=== PATIENT | female | born 1990 | race Caucasian/White ===

== ENCOUNTER 2016-08-16 20:41 | Emergency (ER) | payer SELFPAY ==
[2016-08-16 20:48] VITALS: TEMP 97.8
[2016-08-16] MEDS ORDERED: ONDANSETRON ODT 4 MG TAB PO STA (21:14)
--- NOTE | 2016-08-16 21:16 | ED ---
General Adult HPI - General Chief complaint: Nausea/Vomiting/Diarrhea Stated complaint: nausea,vomiting Time Seen by Provider: 08/16/16 21:00 Source: patient, RN notes reviewed Mode of arrival: ambulatory Limitations: no limitations - History of Present Illness Initial comments: Is a 26-year-old female presents emergency department stating that for the last week and a half she has vomited almost every single day times one. Patient states there have been some days that she hasn't vomited. Patient denies any abdominal pain. Patient denies any diarrhea. Patient states that she can't constipated. Patient states that she's been taking iron for she thinks she might be low on hemoglobin because she had a large. A month ago. Patient states she also might be but she can't take a urine test because her doctor told her doesn't work on her. Patient denies any fever or chills. Patient denies chest pain difficulty breathing or shortness of breath. Patient denies any recent injury or trauma. Patient denies any back pain. - Related Data Home Medications Medication Instructions Recorded Confirmed Spironolactone [Aldactone] 50 mg PO DAILY 11/21/14 08/16/16 buPROPion HCL [Wellbutrin SR] 150 mg PO BID 03/01/16 08/16/16 Ergocalciferol [Vitamin D2 50,000 unit PO FR 06/12/16 08/16/16 (DRISDOL)] Norgestimate-Ethinyl Estradiol 1 tab PO DAILY 08/16/16 08/16/16 [Tri-Estarylla Tablet] Previous Rx's Medication Instructions Recorded Omeprazole [PriLOSEC] 40 mg PO -BRKFST #30 cap 08/18/15 Allergies Allergy/AdvReac Type Severity Reaction Status Date / Time No Known Allergies Allergy Verified 08/16/16 20:48 Review of Systems ROS Statement: Those systems with pertinent positive or pertinent negative responses have been documented in the HPI. ROS Other: All systems not noted in ROS Statement are negative. Past Medical History Past Medical History: GERD/Reflux Additional Past Medical History / Comment(s): back pain, pcos, insulin resistance, hirutism (excess hair growth), STATES ON SPIRONOLACTONE R/T HIRUTISM NOT HTN History of Any Multi-Drug Resistant Organisms: None Reported Past Surgical History: Ear Surgery Additional Past Surgical History / Comment(s): tubes when young in ears Past Anesthesia/Blood Transfusion Reactions: No Reported Reaction Past Psychological History: Depression Additional Psychological History / Comment(s): STATES HAS NOT BEEN ON MEDICATION Smoking Status: Current every day smoker Past Alcohol Use History: None Reported Additional Past Alcohol Use History / Comment(s): DOWN TO 5 CIGARETTES A DAY FROM 1PPD Past Drug Use History: Marijuana Additional Drug Use History / Comment(s): STATES MAY USE ONCE A WEEK, INSTRUCTED NOT TO USE 24 HRS PRIOR TO PROCEDURE - Past Family History Mother Family Medical History: Cancer, Pulmonary Embolus Additional Family Medical History / Comment(s): mom passed in 2003 passed from pulmonary embolism, moms mother had cancer pt doesn't know what kind Father Family Medical History: Diabetes Mellitus Additional Family Medical History / Comment(s): 2007 from diabetes and anemia got gangrene in foot, OSTEOMYLITIS General Exam - General Exam Comments Initial Comments: GENERAL: Patient is well-developed and well-nourished. Patient is nontoxic and well- hydrated and is in no acute distress. ENT: Neck is soft and supple. No significant lymphadenopathy is noted. Oropharynx is clear. Moist mucous membranes. Neck has full range of motion without eliciting any pain. EYES: The sclera were anicteric and conjunctiva were pink and moist. Extraocular movements were intact and pupils were equal round and reactive to light. Eyelids were unremarkable. PULMONARY: Unlabored respirations. Good breath sounds bilaterally. No audible rales rhonchi or wheezing was noted. CARDIOVASCULAR: There is a regular rate and rhythm without any murmurs gallops or rubs. ABDOMEN: Soft and nontender with normal bowel sounds. No palpable organomegaly was noted. There is no palpable pulsatile mass. SKIN: Skin is clear with no lesions or rashes and otherwise unremarkable. NEUROLOGIC: Patient is alert and oriented x3. Cranial nerves II through XII are grossly intact. Motor and sensory are also intact. Normal speech, volume and content. Symmetrical smile. MUSCULOSKELETAL: Normal extremities with adequate strength and full range of motion. No lower extremity swelling or edema. No calf tenderness. LYMPHATICS: No significant lymphadenopathy is noted PSYCHIATRIC: Normal psychiatric evaluation. Normal interpersonal interactions appears functionally intact in deals appropriately with others. No signs of depression. No signs of anxiety. Limitations: no limitations Course Vital Signs 08/16/16 20:46 Temperature 97.8 F Pulse Rate 85 Respiratory 20 Rate Blood Pressure 142/77 O2 Sat by Pulse 98 Oximetry Medical Decision Making - Medical Decision Making X-ray shows no acute abnormality. - Lab Data Result diagrams: 08/16/16 21:15 08/16/16 21:15 Lab Results 08/16/16 08/16/16 08/16/16 Range/Units 21:15 21:15 21:15 WBC 10.2 (3.8-10.6) k/uL RBC 3.99 (3.80-5.40) m/uL Hgb 10.8 L (11.4-16.0) gm/dL Hct 34.4 (34.0-46.0) % MCV 86.1 D (80.0-100.0) fL MCH 26.9 (25.0-35.0) pg MCHC 31.3 (31.0-37.0) g/dL RDW 15.1 (11.5-15.5) % Plt Count 424 (150-450) k/uL Neutrophils % 66 % Lymphocytes % 26 % Monocytes % 4 % Eosinophils % 3 % Basophils % 1 % Neutrophils # 6.7 (1.3-7.7) k/uL Lymphocytes # 2.7 (1.0-4.8) k/uL Monocytes # 0.4 (0-1.0) k/uL Eosinophils # 0.3 (0-0.7) k/uL Basophils # 0.1 (0-0.2) k/uL Hypochromasia Moderate Sodium 141 (137-145) mmol/L Potassium 4.1 (3.5-5.1) mmol/L Chloride 105 (98-107) mmol/L Carbon Dioxide 24 (22-30) mmol/L Anion Gap 12 mmol/L BUN 14 (7-17) mg/dL Creatinine 1.00 (0.52-1.04) mg/dL Est GFR (MDRD) Af Amer >60 (>60 ml/min/1.73 sqM) Est GFR (MDRD) Non-Af >60 (>60 ml/min/1.73 sqM) Glucose 104 H (74-99) mg/dL Calcium 9.4 (8.4-10.2) mg/dL Total Bilirubin 0.4 (0.2-1.3) mg/dL AST 25 (14-36) U/L ALT 48 (9-52) U/L Alkaline Phosphatase 88 (38-126) U/L Total Protein 7.3 (6.3-8.2) g/dL Albumin 4.0 (3.5-5.0) g/dL HCG, Qual Not Detected Urine Color Yellow Urine Appearance Cloudy H (Clear) Urine pH 5.0 (5.0-8.0) Ur Specific [place] 1.024 (1.001-1.035) Urine Protein Trace H (Negative) Urine Glucose (UA) Negative (Negative) Urine Ketones Negative (Negative) Urine Blood Negative (Negative) Urine Nitrate Negative (Negative) Urine Bilirubin Negative (Negative) Urine Urobilinogen <2.0 (<2.0) mg/dL Ur Leukocyte Esterase Small H (Negative) Urine RBC 4 (0-5) /hpf Urine WBC 7 H (0-5) /hpf Ur Squamous Epith Cells 18 H (0-4) /hpf Urine Bacteria Few H (None) /hpf Urine Mucus Many H (None) /hpf Disposition Clinical Impression: Nausea & vomiting Disposition: HOME SELF-CARE Instructions: Acute Nausea and Vomiting (ED) Referrals: Jose Kaba DO [Primary Care Provider] - 1-2 days Time of Disposition: 21:55
[2016-08-16 21:30] LABS: Basophils # (A) 0.1 k/uL (0-0.2); Basophils % (A) 1 %; CH 27.1; CHCM 31.5; Eosinophils # (A) 0.3 k/uL (0-0.7); Eosinophils % (A) 3 %; HCT 34.4 % (34.0-46.0); HGB 10.8 gm/dL (11.4-16.0); Hypochromasia Moderate; Luc # (Auto) 0.12; Luc % (Auto) 1; Lymphocytes # (A) 2.7 k/uL (1.0-4.8); Lymphocytes % (A) 26 %; MCH 26.9 pg (25.0-35.0); MCHC 31.3 g/dL (31.0-37.0); Mean Platelet Volume 7.5; Monocytes # (A) 0.4 k/uL (0-1.0); Monocytes % (A) 4 %; Neutrophils # (A) 6.7 k/uL (1.3-7.7); Neutrophils % (A) 66 %; RBC 3.99 m/uL (3.80-5.40); RDW 15.1 % (11.5-15.5); WBC 10.2 k/uL (3.8-10.6); WBC (Perox) 10.78
[2016-08-16 21:33] LABS: MCV 86.1 fL (80.0-100.0)
[2016-08-16 21:34] LABS: Appearance,Urine Cloudy (Clear); Bacteria,Urine Few /hpf; Bilirubin,Urine Negative (Negative); Glucose,Urine (UA) Negative (Negative); Ketones,Urine Negative (Negative); Leukocyte Esterase,Urine Small (Negative); Mucus,Urine Many /hpf; Nitrite,Urine Negative (Negative); Particle Count 15013; Protein,Urine Trace (Negative); RBC,Urine 4 /hpf (0-5); Specific Gravity,Urine 1.024 (1.001-1.035); Squamous Epithelial Cell,Urine 18 /hpf (0-4); UA Billing (MACRO vs. MICRO) MICRO; Urobilinogen,Urine <2.0 mg/dL (<2.0); WBC,Urine 7 /hpf (0-5)
[2016-08-16 21:39] LABS: HCG,Qualitative Serum Not Detected
[2016-08-16 21:40] LABS: ALT 48 U/L (9-52); AST 25 U/L (14-36); Alkaline Phosphatase 88 U/L (38-126); Anion Gap 12 mmol/L; Blood Urea Nitrogen 14 mg/dL (7-17); Calcium 9.4 mg/dL (8.4-10.2); Carbon Dioxide 24 mmol/L (22-30); Chloride 105 mmol/L (98-107); Glucose 104 mg/dL (74-99); Non-African American GFR(MDRD) >60 (>60 ml/min/1.73 sqM); Potassium 4.1 mmol/L (3.5-5.1); Sodium 141 mmol/L (137-145); Total Bilirubin 0.4 mg/dL (0.2-1.3); Total Protein 7.3 g/dL (6.3-8.2)
--- NOTE | 2016-08-16 21:54 | XR ---
EXAMINATION TYPE: XR KUB DATE OF EXAM: 08/16/2016 9:47 PM COMPARISON: NONE HISTORY: Nausea and vomiting TECHNIQUE: 3 views FINDINGS: I see no evidence of intestinal obstruction or pneumoperitoneum. Fecal pattern is normal. B owel gas pattern is normal. The lung bases are clear. There are no pathologic calcifications over the kidneys. IMPRESSION: Nonacute abdomen.
[2016-08-16] MEDS ORDERED: ONDANSETRON 4 MG ODT STARTER PACK 2 TAB BTL PO STA (21:55)
[2016-08-16 22:16] VITALS: BP 134/66; PULSE 90; RESP 18
== END 2016-08-16 22:15 | disposition home or self-care (01) ==
LOC: EC 20:41
DX: R11.2 Nausea with vomiting, unspecified (principal); F32.9 Major depressive disorder, single episode, unspecified; F17.210 Nicotine dependence, cigarettes, uncomplicated; Z79.3 Long term (current) use of hormonal contraceptives; Z79.899 Other long term (current) drug therapy
CPT/HCPCS: 36415; 80053; 85025; 81001; 84703; 74000; 99284; S0119

== ENCOUNTER → 2017-02-14 | Outpatient (CLI) | payer OTHER ==
[2017-02-14 16:12] VITALS: BP 140/81; PULSE 86; TEMP 98.4; BMI 56.7
--- NOTE | 2017-03-19 19:06 | P.PN ---
Progress Note - Text DATE OF SERVICE: 02/14/2017. CHIEF COMPLAINT: Bariatric assessment. HISTORY OF PRESENT ILLNESS: Susan. Fabian is a 26-year-old female who has been going almost 2 years for medically supervised weight loss. At her height of 5 feet 8-1/4 inches, she was 363 pounds in May of last year. Today she comes in weighing 376 pounds. She has gained 13 pounds in 9 months. [place] body weight is 163 pounds. She is 213 pounds overweight. As result of her morbid obesity, she developed hypertension uncontrolled. She is having trouble sleeping. She has been going to a gym membership. She has developed comorbidities, including non-insulin dependent diabetes, obstructive sleep apnea as well as hypertension. Body mass index is now 56.9. PAST MEDICAL HISTORY: 1. Morbid obesity. 2. Hypertension. 3. History of gastric ulcers. 4. Diabetes type 2. 5. Osteoarthritis of the lower back. 6. Obstructive sleep apnea, moderate to severe. PAST SURGICAL HISTORY: 1. Upper endoscopy. 2. Myringotomy, tubes in the ear. MEDICATIONS: 1. Metformin. 2. Wellbutrin. 3. Spironolactone. 4. Prilosec. 5. Naproxen. 6. Bactrim. 7. ( ). 8. Ibuprofen. 9. Vitamin D. ALLERGIES: Denies. SOCIAL HISTORY: Current daily tobacco user. History of recreational marijuana use. FAMILY HISTORY: Notable for obesity. She also has a family history of diabetes. She denies any familial history of ulcerative colitis or Crohn's disease. She denies any stomach cancers in her family. She does have history of her mother dying of pulmonary embolism. REVIEW OF SYSTEMS: CONSTITUTIONAL: [place] body weight of 163 pounds. She is 213 pounds overweight. Body mass index now 56.9. RESPIRATORY: Has obstructive sleep apnea. Currently pending CPAP machine. GASTROINTESTINAL: History of gastroesophageal reflux disease. She was negative for H. pylori gastritis. No reports of blood in the stools or diarrhea, constipation. She also reports intolerance to fatty foods; however, she has not had recently evaluate for cholecystitis. HEENT: No troubles with vision or hearing. Denies dysphagia. ENDOCRINE: Has glucose intolerance. No thyroid disorder. CARDIOVASCULAR: History of hypertension. No recent heart attack or palpitations. MUSCULOSKELETAL: Has lower back pain. Also reports bilateral hip pain. She reports pain along her ankle secondary to morbid obesity. NEURO: No reports of a headache or seizure disorders. PSYCH: No reports of depression or suicidal ideation. HEMATOLOGIC: No bruising or bleeding. PHYSICAL EXAM: VITAL SIGNS: 5 foot 8-1/4, 376 pounds. Body mass index of 56.9. Vital Signs 02/14/17 16:08 Temperature 98.4 F Pulse Rate 86 Blood Pressure 140/81 GENERAL: Well-developed female in no acute distress. HEENT: No sclerae icterus. Extraocular movements grossly intact. Moist buccal pink mucosa. NECK: Supple without lymphadenopathy. CHEST: Nonlabored respirations, equal bilateral excursions. CARDIOVASCULAR: Regular rate and regular rhythm. ABDOMEN: Obese, soft, nontender. Nondistended. MUSCULOSKELETAL: No clubbing, or cyanosis. NEURO: No focal or lateralizing signs. Cranial nerves II through XII grossly within normal limits. PSYCH: Appropriate affect. Alert and oriented to person, place and time. SKIN: Well perfused. Good skin turgor. ASSESSMENT: 1. Morbid obesity due to excess caloric intake. 2. Body mass index of 56.9. 3. Obstructive sleep apnea. 4. Osteoarthritis of lower back, due to morbid obesity. 5. Tobacco cessation and counseling 6. Vitamin D deficiency. 7. Hypercholesterolemia. 8. Hypertriglyceridemia. 9. Hypertensive heart disease without known cardiomyopathy. 10. Glucose intolerance. 11. Fatty food intolerance 12. Gastroesophageal reflux disease. 13. History of gastric ulcers. 14. Dietary surveillance and counseling. PLAN: 1. Recommend dietary surveillance and counseling. 2. May need diuretic for hypertension. 3. Recommend follow-up with bariatric dietitian. 4. Continue with membership at the gym.
== END | disposition home or self-care (01) ==
LOC: BARWHC3 14:37
PROVIDERS: ATTEND Surgery Plastic and Reconstructive Surgery
DX: Z48.815 Encounter for surgical aftercare following surgery on the digestive system (principal); G47.33 Obstructive sleep apnea (adult) (pediatric); M47.816 Spondylosis without myelopathy or radiculopathy, lumbar region; E55.9 Vitamin D deficiency, unspecified; E78.00 Pure hypercholesterolemia, unspecified; E78.1 Pure hyperglyceridemia; I11.9 Hypertensive heart disease without heart failure; E74.39 Other disorders of intestinal carbohydrate absorption; K90.49 Malabsorption due to intolerance, not elsewhere classified; E11.9 Type 2 diabetes mellitus without complications; K21.9 Gastro-esophageal reflux disease without esophagitis; E66.01 Morbid (severe) obesity due to excess calories; Z68.43 Body mass index [BMI] 50.0-59.9, adult; Z87.11 Personal history of peptic ulcer disease; Z71.6 Tobacco abuse counseling; Z71.3 Dietary counseling and surveillance; Z79.1 Long term (current) use of non-steroidal anti-inflammatories (NSAID); Z98.84 Bariatric surgery status; Z79.899 Other long term (current) drug therapy
CPT/HCPCS: 99211

== ENCOUNTER → 2017-08-29 | Outpatient (CLI) | payer OTHER ==
[2017-08-29 14:30] VITALS: BP 103/72; PULSE 83; RESP 16; TEMP 98.2; BMI 57.2
--- NOTE | 2017-11-05 16:53 | P.PN ---
Subjective Progress Note Date: 08/29/17 DATE OF SERVICE: 08/29/2017 CHIEF COMPLAINT: Bariatric assessment. HISTORY OF PRESENT ILLNESS: Susan. Fbaian is a 27-year-old female who has been undergoing medical supervised weight loss over a year. In the past year she stopped smoking. Her highest weight has been 380 pounds. At her height of 5 feet 8-1/4 inches, she was 380 pounds. Her body mass index was 57.5. [place] body weight is 163 pounds. She is 216 pounds overweight. As result of her morbid obesity, she developed non-insulin dependent diabetes, obstructive sleep apnea as well as hypertension. She reports troubles with constipation. She sees a psychologist. Per her understanding, she is eager to lose 10% of her present weight otherwise 38 pounds to get down to 342 pounds. She reports developing lower back pain including right greater than left hip pain. She also reports bilateral ankle pain. She is looking into the gastric bypass. PAST MEDICAL HISTORY: 1. Morbid obesity. 2. Hypertension. 3. History of gastric ulcers. 4. Diabetes type 2. 5. Osteoarthritis of the lower back. 6. Obstructive sleep apnea, moderate to severe. PAST SURGICAL HISTORY: 1. Upper endoscopy. 2. Myringotomy, tubes in the ear. MEDICATIONS: 1. Wellbutrin. 2. Spironolactone. 3. Prilosec. 4. Vitamin D. 5. Iron 6. Zantac ALLERGIES: Denies. SOCIAL HISTORY: Past daily tobacco user. History of recreational marijuana use. FAMILY HISTORY: Notable for obesity. She also has a family history of diabetes. She denies any familial history of ulcerative colitis or Crohn's disease. She denies any stomach cancers in her family. She does have history of her mother dying of pulmonary embolism. REVIEW OF SYSTEMS: CONSTITUTIONAL: At her height of 5 feet 8-1/4 inches, she was 380 pounds. Her body mass index was 57.5. [place] body weight is 163 pounds. She is 216 pounds overweight. RESPIRATORY: Has obstructive sleep apnea. No recent pneumonias. GASTROINTESTINAL: History of gastroesophageal reflux disease. She also reports intolerance to fatty foods. Reports change in bowel habits including constipation. HEENT: No troubles with vision or hearing. Denies dysphagia. ENDOCRINE: Has glucose intolerance. No thyroid disorder. CARDIOVASCULAR: History of hypertension. No recent heart attack or palpitations. MUSCULOSKELETAL: Has lower back pain. Also reports bilateral hip pain. She reports pain along her ankle secondary to morbid obesity. NEURO: No reports of a headache or seizure disorders. PSYCH: No reports of depression or suicidal ideation. HEMATOLOGIC: No bruising or bleeding. SKIN: Has panniculitis. No cancer. PHYSICAL EXAM: VITAL SIGNS: 5 foot 8-1/4, 380 pounds. Body mass index of 57.5 Vital Signs Temp 98.2 F 08/29/17 18:00 Pulse 83 08/29/17 18:00 Resp 16 08/29/17 18:00 BP 103/72 08/29/17 18:00 Pulse Ox GENERAL: Well-developed female in no acute distress. HEENT: No sclerae icterus. Extraocular movements grossly intact. Moist buccal pink mucosa. NECK: Supple without lymphadenopathy. CHEST: Nonlabored respirations, equal bilateral excursions. CARDIOVASCULAR: Regular rate and regular rhythm. ABDOMEN: Obese, soft, nontender. Nondistended. MUSCULOSKELETAL: No clubbing, or cyanosis. NEURO: No focal or lateralizing signs. Cranial nerves II through XII grossly within normal limits. PSYCH: Appropriate affect. Alert and oriented to person, place and time. SKIN: Well perfused. Good skin turgor. ASSESSMENT: 1. Morbid obesity due to excess caloric intake. 2. Body mass index of 57.5. 3. Obstructive sleep apnea. 4. Osteoarthritis of lower back, due to morbid obesity. 5. Gastroesophageal reflux disease. 6. Vitamin D deficiency. 7. Hypercholesterolemia. 8. Hypertriglyceridemia. 9. Hypertensive heart disease 10. Glucose intolerance. 11. Fatty food intolerance 12. Dietary surveillance and counseling. PLAN: 1. Recommend bariatric metabolic panel. 2. Goal weight loss of 38 pounds described otherwise goal weight of 342 pounds. 3. She has history of fatty food intolerance however at present no cholecystitis. 4. Recommend dietary surveillance and counseling and maintenance with dietitian. Goal protein intake over 75 g daily advised.
== END | disposition home or self-care (01) ==
LOC: BARWHC3 13:20
PROVIDERS: ATTEND Surgery Plastic and Reconstructive Surgery
DX: Z48.815 Encounter for surgical aftercare following surgery on the digestive system (principal); E66.01 Morbid (severe) obesity due to excess calories; M19.90 Unspecified osteoarthritis, unspecified site; G47.33 Obstructive sleep apnea (adult) (pediatric); K21.9 Gastro-esophageal reflux disease without esophagitis; E55.9 Vitamin D deficiency, unspecified; E78.00 Pure hypercholesterolemia, unspecified; E78.1 Pure hyperglyceridemia; I11.9 Hypertensive heart disease without heart failure; I50.9 Heart failure, unspecified; E74.39 Other disorders of intestinal carbohydrate absorption; K90.49 Malabsorption due to intolerance, not elsewhere classified; Z71.3 Dietary counseling and surveillance; Z79.899 Other long term (current) drug therapy; Z68.43 Body mass index [BMI] 50.0-59.9, adult
CPT/HCPCS: 99211

== ENCOUNTER → 2017-11-28 | Outpatient (CLI) | payer OTHER ==
[2017-11-28 14:53] VITALS: BP 126/85; PULSE 103; RESP 16; TEMP 98.2; BMI 56.2
[2017-11-28 14:53] LABS: Partial Thromboplastin Time 24.6 sec (22.0-30.0); Prothrombin Time 9.5 sec (9.0-12.0)
[2017-11-28 14:55] LABS: HCT 36.4 % (34.0-46.0); HGB 11.9 gm/dL (11.4-16.0); Hypochromasia Slight; MCH 29.7 pg (25.0-35.0); MCHC 32.6 g/dL (31.0-37.0); MCV 91.1 fL (80.0-100.0); Mean Platelet Volume 6.7; Platelet Count 390 k/uL (150-450); RDW 12.9 % (11.5-15.5); WBC 7.4 k/uL (3.8-10.6)
[2017-11-28 15:24] LABS: ALT 36 U/L (9-52); AST 23 U/L (14-36); Alkaline Phosphatase 84 U/L (38-126); Anion Gap 13 mmol/L; Blood Urea Nitrogen 16 mg/dL (7-17); Calcium 9.7 mg/dL (8.4-10.2); Carbon Dioxide 26 mmol/L (22-30); Chloride 105 mmol/L (98-107); Cholesterol 232 mg/dL (<200); Glucose 100 mg/dL (74-99); HDL Cholesterol 37 mg/dL (40-60); LDL Cholesterol,Calculated 154 mg/dL (0-99); Magnesium 1.8 mg/dL (1.6-2.3); Phosphorus 3.1 mg/dL (2.5-4.5); Potassium 4.5 mmol/L (3.5-5.1); Sodium 144 mmol/L (137-145); Total Bilirubin 0.3 mg/dL (0.2-1.3); Total Protein 6.8 g/dL (6.3-8.2); Triglycerides 204 mg/dL (<150)
--- NOTE | 2017-11-28 17:09 | P.PN ---
Progress Note - Text Progress Note Date: 11/28/17 Patient had to leave.
[2017-11-28 19:12] LABS: Iron Saturation 8.31 (12.00-45.00)
[2017-11-28 20:20] LABS: Parathyroid Hormone Intact 48.3 pg/mL (14.0-72.0)
[2017-11-29 00:44] LABS: Hemoglobin A1C 5.2 % (4.0-6.0)
[2017-11-29 12:49] LABS: Vitamin A 33 ug/dL (38-106)
[2017-11-29 14:19] LABS: Zinc, Serum 95 ug/dL (60-130)
[2017-11-29 22:40] LABS: Vitamin B1 59 ug/L (38-122)
[2017-11-30 16:54] LABS: Selenium 162 mcg/L (63-160)
== END | disposition home or self-care (01) ==
LOC: BARWHC3 13:53
PROVIDERS: ATTEND Surgery Plastic and Reconstructive Surgery
DX: E66.01 Morbid (severe) obesity due to excess calories (principal); E21.1 Secondary hyperparathyroidism, not elsewhere classified; K91.2 Postsurgical malabsorption, not elsewhere classified; E89.1 Postprocedural hypoinsulinemia; E55.9 Vitamin D deficiency, unspecified; K76.9 Liver disease, unspecified; N19 Unspecified kidney failure; K50.90 Crohn's disease, unspecified, without complications
CPT/HCPCS: 84255; 84134; 84425; 80061; 80053; 82607; 82728; 82525; 82746; 83540; 83550; 83735; 84100; 84443; 84590; 84630; 85027; 85610; 85730; 82306; 83970; 83036; 36415; G0463; 99201

== ENCOUNTER 2018-02-13 10:00 | Day surgery (SDC) | payer OTHER ==
[2018-02-08 13:13] VITALS: BMI 54.3
--- NOTE | 2018-02-13 09:18 | P.GSHP ---
History of Present Illness H&P Date: 02/13/18 CHIEF COMPLAINT: GERD HISTORY OF PRESENT ILLNESS: The patient is a 27-year-old female who presents reports gastroesophageal reflux disease. Upper endoscopy was offered for further evaluation and management. PAST MEDICAL HISTORY: Please see list. PAST SURGICAL HISTORY: Please see list. MEDICATIONS: Please see list. ALLERGIES: Please see list. SOCIAL HISTORY: No illicit drug use FAMILY HISTORY: No reports of Crohn disease or ulcerative colitis. REVIEW OF ORGAN SYSTEMS: CONSTITUTIONAL: No reports of fevers or chills. GI: Denies any blood in stools or constipation. PHYSICAL EXAM: VITAL SIGNS: Stable GENERAL: Well-developed and pleasant in no acute distress. HEENT: No scleral icterus. Extraocular movements grossly intact. Moist buccal mucosa. NECK: Supple without lymphadenopathy. CHEST: Unlabored respirations. Equal bilateral excursions. CARDIOVASCULAR: Regular rate and rhythm. Distal 2+ pulses. ABDOMEN: Soft, nondistended. MUSCULOSKELETAL: No clubbing, cyanosis, or edema. ASSESSMENT: 1. Gastroesophageal reflux disease PLAN: 1. Recommend proceeding with an upper endoscopy Past Medical History Past Medical History: GERD/Reflux, Sleep Apnea/CPAP/BIPAP Additional Past Medical History / Comment(s): BACK PAIN, PCOS, MENSTRUAL PERIODS LENGTHY AND HEAVY, LOW IRON.,HIRSUTISM-(TAKES SPIRONOLACTONE FOR THIS). , STOMACH ULCERS ., HAS BROKEN TOOTH., SLEEP APNEA (NO MACHINE) History of Any Multi-Drug Resistant Organisms: None Reported Past Surgical History: Ear Surgery Additional Past Surgical History / Comment(s): TUBES IN EARS (CHILD), EGD Past Anesthesia/Blood Transfusion Reactions: No Reported Reaction Past Psychological History: Anxiety, Depression Additional Psychological History / Comment(s): . Smoking Status: Former smoker Past Alcohol Use History: None Reported Additional Past Alcohol Use History / Comment(s): QUIT SMOKING January. SMOKED 1/2 PPD. STARTED SMOKING AGE 13. Past Drug Use History: None Reported - Past Family History Mother Family Medical History: Cancer, Pulmonary Embolus Additional Family Medical History / Comment(s): . Father Family Medical History: Diabetes Mellitus Additional Family Medical History / Comment(s): 2007 from diabetes and anemia got gangrene in foot, OSTEOMYLITIS Medications and Allergies Home Medications Medication Instructions Recorded Confirmed Type Ergocalciferol (Vitamin D2) 50,000 unit PO Q7D 08/31/17 02/08/18 History [Vitamin D2] Ferrous Sulfate [Feosol] 325 mg PO DAILY 08/31/17 02/08/18 History Spironolactone [Aldactone] 50 mg PO DAILY 08/31/17 02/08/18 History buPROPion HCL [Wellbutrin SR] 150 mg PO BID 08/31/17 02/08/18 History Cetirizine (Unknown Dose) 1 tab PO DAILY PRN 02/08/18 02/08/18 History Multivit with Calcium,Iron,Min 1 each PO DAILY 02/08/18 02/08/18 History [Women's Multivitamin] Naproxen Sodium [Aleve] 660 mg PO DAILY PRN 02/08/18 02/08/18 History [place] 3 1 dose PO DAILY 02/08/18 02/08/18 History Omeprazole [PriLOSEC] 40 mg PO DAILY 02/08/18 02/08/18 History Phentermine HCl [Adipex-P] 37.5 mg PO QAM 02/08/18 02/08/18 History Vitamin C/Biotin [Hair, Skin and 1 tab PO DAILY 02/08/18 02/08/18 History Nails] Allergies Allergy/AdvReac Type Severity Reaction Status Date / Time No Known Allergies Allergy Verified 02/08/18 12:50
[~2018-02-13 10:00] MED LIST: LACTATED RINGERS 1,000 ML IV SCH; LIDOCAINE 1% 20 ML VIAL (10MG/ML) FOR IV START INTRADERMA PRN
[2018-02-13 11:18] VITALS: TEMP 97.9
[2018-02-13] MEDS ORDERED: KETAMINE 10 MG/ML 20 ML VIAL ONE (11:46)
[2018-02-13] MEDS ORDERED: PROPOFOL 10 MG/ML 20 ML VIAL IV ONE (11:46)
[2018-02-13] MEDS ORDERED: GLYCOPYRROLATE 0.2 MG/ML 2 ML VIAL ONE (11:46)
[2018-02-13] MEDS ORDERED: LIDOCAINE 1% INJ 10MG/ML (20 ML MDV) ONE (11:46)
[2018-02-13] MEDS ORDERED: MIDAZOLAM 2 MG/2 ML VIAL ONE (11:46)
--- NOTE | 2018-02-13 12:04 | P.PCN ---
Date of Procedure: 02/13/18 Description of Procedure: PREOPERATIVE DIAGNOSIS: Gastroesophageal reflux disease. Morbid obesity. POSTOPERATIVE DIAGNOSIS: Morbid obesity. Gastritis. Erosive esophagitis. Gastroesophageal reflux disease. Diaphragmatic hiatal hernia without obstruction. OPERATION: Esophagogastroduodenoscopy with biopsies along antrum. SURGEON: Jahaira Yates MD ANESTHESIA: MAC. INDICATIONS: The patient is a 27-year-old female who presents with a history of reflux disease. Benefits and risks of the procedure were described. Informed consent was obtained. DESCRIPTION: The patient was brought into the endoscopy suite and laid in the left lateral decubitus position. An Olympus gastroscope was passed along the posterior oropharynx down to the distal esophagus where the squamocolumnar junction was encountered at 40 cm from the incisors. The stomach was entered and no bile reflux was found. Additional findings are listed below. Biopsies with cold forceps were obtained of the antrum. The first through third portion of the duodenum was examined and unremarkable. Retroflexion of the scope confirmed Hill grade 4 lower esophageal valve. The squamocolumnar junction demostrated LA grade A erosive esophagitis. The stomach was desufflated. The patient tolerated the procedure well. FINDINGS: Squamocolumnar junction 40 cm from the incisors. Diaphragmatic hiatus at 40 cm. Hill grade 4 lower esophageal valve. LA grade A erosive esophagitis. Mild chronic gastritis without bleeding. No active duodenitis. RECOMMENDATIONS: Upper endoscopy as needed. Plan - Discharge Summary New Discharge Prescriptions: No Action Ferrous Sulfate [Feosol] 325 mg PO DAILY Ergocalciferol (Vitamin D2) [Vitamin D2] 50,000 unit PO Q7D buPROPion HCL [Wellbutrin SR] 150 mg PO BID Spironolactone [Aldactone] 50 mg PO DAILY Omeprazole [PriLOSEC] 40 mg PO DAILY Naproxen Sodium [Aleve] 660 mg PO DAILY PRN PRN Reason: Pain Vitamin C/Biotin [Hair, Skin and Nails] 1 tab PO DAILY Phentermine HCl [Adipex-P] 37.5 mg PO QAM [place] 3 1 dose PO DAILY Multivit with Calcium,Iron,Min [Women's Multivitamin] 1 each PO DAILY Cetirizine (Unknown Dose) 1 tab PO DAILY PRN PRN Reason: Allergic Reaction Discharge Medication List Ergocalciferol (Vitamin D2) [Vitamin D2] 50,000 unit PO Q7D 08/31/17 [History] Ferrous Sulfate [Feosol] 325 mg PO DAILY 08/31/17 [History] Spironolactone [Aldactone] 50 mg PO DAILY 08/31/17 [History] buPROPion HCL [Wellbutrin SR] 150 mg PO BID 08/31/17 [History] Cetirizine (Unknown Dose) 1 tab PO DAILY PRN 02/08/18 [History] Multivit with Calcium,Iron,Min [Women's Multivitamin] 1 each PO DAILY 02/08/18 [ History] Naproxen Sodium [Aleve] 660 mg PO DAILY PRN 02/08/18 [History] [place] 3 1 dose PO DAILY 02/08/18 [History] Omeprazole [PriLOSEC] 40 mg PO DAILY 02/08/18 [History] Phentermine HCl [Adipex-P] 37.5 mg PO QAM 02/08/18 [History] Vitamin C/Biotin [Hair, Skin and Nails] 1 tab PO DAILY 02/08/18 [History]
[2018-02-13 12:23] VITALS: RESP 18
[2018-02-13 12:24] VITALS: BP 114/69; PULSE 76
== END 2018-02-13 12:47 | disposition home or self-care (01) ==
LOC: ORWHC2ENDO 10:00
PROVIDERS: ATTEND Surgery Plastic and Reconstructive Surgery
DX: K29.50 Unspecified chronic gastritis without bleeding (principal); K21.9 Gastro-esophageal reflux disease without esophagitis; G47.33 Obstructive sleep apnea (adult) (pediatric); K22.10 Ulcer of esophagus without bleeding; K44.9 Diaphragmatic hernia without obstruction or gangrene; E66.01 Morbid (severe) obesity due to excess calories; Z79.899 Other long term (current) drug therapy; Z87.891 Personal history of nicotine dependence; Z68.43 Body mass index [BMI] 50.0-59.9, adult
CPT/HCPCS: 81025; 88305; 43239; J2250; J2001; J2704

== ENCOUNTER → 2018-02-27 | Outpatient (CLI) | payer OTHER ==
[2018-02-27 15:40] VITALS: BP 129/96; PULSE 94; TEMP 98.2; BMI 53.2
--- NOTE | 2018-02-27 17:17 | P.PN ---
Subjective Progress Note Date: 02/27/18 DATE OF SERVICE: 02/27/2018 CHIEF COMPLAINT: Bariatric assessment. HISTORY OF PRESENT ILLNESS: Susan. Fabian is a 28-year-old female who presents with her highest weight of 380 pounds. At her height of 5 feet 8-1/4 inches, she was 380 pounds. Her body mass index was 57.5. [place] body weight is 163 pounds. Today she comes in weighing 352 pounds and BMI of 53.3. She has lost 28 pounds in 6 months, and 10 pouns in 2 months since her last visit in December 2017 when she weighed 362 pounds. She is 189 pounds overweight. She is doing well on Adipex and has achieved requested weight loss goal. She has stopped smoking. She is looking into the gastric bypass. PAST MEDICAL HISTORY: 1. Morbid obesity, highest BMI 57.5. 2. Hypertension. 3. History of gastric ulcers. 4. Diabetes type 2, diet controlled. 5. Osteoarthritis of the lower back. 6. Obstructive sleep apnea 7. Gastroesophageal reflux disease PAST SURGICAL HISTORY: 1. Upper endoscopy. 2. Myringotomy, tubes in the ear. MEDICATIONS: 1. Wellbutrin. 2. Spironolactone. 3. Prilosec. 4. Vitamin D. 5. Iron 6. Zantac 7. Adipex ALLERGIES: Denies. SOCIAL HISTORY: History of tobacco use. History of recreational marijuana use. FAMILY HISTORY: Notable for obesity. She also has a family history of diabetes. She denies any familial history of ulcerative colitis or Crohn's disease. She denies any stomach cancers in her family. She does have history of her mother dying of pulmonary embolism. REVIEW OF SYSTEMS: CONSTITUTIONAL: At her height of 5 feet 8-1/4 inches, she was 380 pounds. Her body mass index was 57.5. [place] body weight is 163 pounds. She has lost 28 pounds in 6 months and is 189 pounds overweight. Today she comes in weighing 352 pounds and BMI of 53.3. RESPIRATORY: Has obstructive sleep apnea. No recent pneumonias. GASTROINTESTINAL: History of gastroesophageal reflux disease. She also reports intolerance to fatty foods. Reports change in bowel habits including constipation. HEENT: No troubles with vision or hearing. Denies dysphagia. ENDOCRINE: Has glucose intolerance. No thyroid disorder. CARDIOVASCULAR: History of hypertension. No recent heart attack or palpitations. MUSCULOSKELETAL: Has lower back pain. Also reports bilateral hip pain. She reports pain along her ankle secondary to morbid obesity. NEURO: No reports of a headache or seizure disorders. PSYCH: No reports of depression or suicidal ideation. HEMATOLOGIC: No bruising or bleeding. SKIN: Has panniculitis. No cancer. PHYSICAL EXAM: VITAL SIGNS: 5 foot 8-1/4, 352 pounds. Body mass index of 53.3 Vital Signs 02/27/18 15:35 Temperature 98.2 F Pulse Rate 94 Blood Pressure 129/96 GENERAL: Well-developed female in no acute distress. HEENT: No sclerae icterus. Extraocular movements grossly intact. Moist buccal pink mucosa. NECK: Supple without lymphadenopathy. CHEST: Nonlabored respirations, equal bilateral excursions. CARDIOVASCULAR: Regular rate and regular rhythm. ABDOMEN: Obese, soft, nontender. Nondistended. MUSCULOSKELETAL: No clubbing, or cyanosis. NEURO: No focal or lateralizing signs. Cranial nerves II through XII grossly within normal limits. PSYCH: Appropriate affect. Alert and oriented to person, place and time. SKIN: Well perfused. Good skin turgor. LABS: Prealbumin low at 17, Iron low at 28, Cholesterol elevated at 232, HDL low at 37 , Vitamin A low at 33, Vitamin D low at 29, Selenium elevated at 162 ASSESSMENT: 1. Morbid obesity due to excess caloric intake. 2. Body mass index of 57.5. 3. Obstructive sleep apnea. 4. Osteoarthritis of lower back, due to morbid obesity. 5. Gastroesophageal reflux disease. 6. Vitamin D deficiency. 7. Hypercholesterolemia. 8. Hypertriglyceridemia. 9. Hypertensive heart disease 10. Glucose intolerance. 11. Fatty food intolerance 12. Dietary surveillance and counseling. 13. Vitamin A deficiency 14. Iron deficiency anemia. 15. Tobacco cessation and counseling. PLAN: 1. Will need urine nicotine test for her history of tobacco abuse. 2. Recommend iron infusion for symptomatic and severe iron deficiency anemia 3. Recommend continuing her medical supervised weight loss. 4. Bariatric options between a sleeve, band and a [place]-en-Y gastric bypass were reviewed in detail. She has elected for a gastric bypass. Robotic assisted approach described. 5. The [place] [facility] Data was also reviewed with benefits and risks as described. 6. An 8 page second-generation bariatric consent form was reviewed in detail including potential of bleeding, infection, leaks, adequate weight loss, nutritional deficiencies which he demonstrated understanding of the risks. 7. A 2 week high-protein low caloric 800 kcal diet described to address hepatomegaly. 8. Preoperative labs including complete metabolic panel and CBC with type and screen recommended. 9. DVT prophylaxis per [place] [facility]. 10. Antibiotic prophylaxis. 11. Inpatient hospitalization anticipated for more than 2 nights. 11. All questions and concerns were addressed with the patient. 12. Recommended dietary classes. Objective - Vital Signs Vital signs: Vital Signs Temp 98.2 F 02/27/18 15:35 Pulse 94 02/27/18 15:35 Resp BP 129/96 02/27/18 15:35 Pulse Ox Intake & Output 02/26/18 02/27/18 02/27/18 18:59 06:59 18:59 Weight 160.209 kg
== END | disposition home or self-care (01) ==
LOC: BARWHC3 14:42
PROVIDERS: ATTEND Surgery Plastic and Reconstructive Surgery
DX: E66.01 Morbid (severe) obesity due to excess calories (principal); K21.9 Gastro-esophageal reflux disease without esophagitis; G47.33 Obstructive sleep apnea (adult) (pediatric); M47.9 Spondylosis, unspecified; E55.9 Vitamin D deficiency, unspecified; E78.00 Pure hypercholesterolemia, unspecified; E78.1 Pure hyperglyceridemia; I11.9 Hypertensive heart disease without heart failure; E11.9 Type 2 diabetes mellitus without complications; K90.49 Malabsorption due to intolerance, not elsewhere classified; E50.9 Vitamin A deficiency, unspecified; D50.9 Iron deficiency anemia, unspecified; Z87.891 Personal history of nicotine dependence; Z71.6 Tobacco abuse counseling; Z87.19 Personal history of other diseases of the digestive system; Z68.43 Body mass index [BMI] 50.0-59.9, adult; Z71.3 Dietary counseling and surveillance; Z98.890 Other specified postprocedural states; Z79.899 Other long term (current) drug therapy; Z83.3 Family history of diabetes mellitus
CPT/HCPCS: 99211

== ENCOUNTER 2018-05-05 20:03 | Emergency (ER) | payer OTHER ==
[2018-05-05 20:17] VITALS: BP 155/93; PULSE 90; RESP 18; TEMP 98.6
[2018-05-05] MEDS ORDERED: KETOROLAC 30 MG/ML 1 ML VIAL IM STA (20:43)
[2018-05-05] MEDS ORDERED: ORPHENADRINE 30 MG/ML 2 ML VIAL IM STA (20:43)
--- NOTE | 2018-05-05 20:56 | ED ---
Back Pain HPI - General Chief Complaint: Back Pain/Injury Stated Complaint: back and leg pain Time Seen by Provider: 05/05/18 20:34 Source: patient, RN notes reviewed Mode of arrival: ambulatory Limitations: no limitations - History of Present Illness Initial Comments: This is a 28-year-old female who presents to the emergency department with chief complaint of low back pain. Patient states that for the last couple of days she has had right-sided back pain that radiates down her butt and the side of her right leg. She states that it stops at her knee. Patient states the pain is positional, increasing with rotating and bending forwards. She states she is having difficulty tying her shoes and wiping when going to the bathroom. She denies any falls, injuries or trauma. She denies saddle paresthesias or loss of bladder or bowel function. Denies numbness or tingling. Patient states that she did walk to the emergency department from home. Denies fevers or chills, chest pain or shortness of breath, abdominal pain, nausea or vomiting. - Related Data Home Medications Medication Instructions Recorded Confirmed Ergocalciferol (Vitamin D2) 50,000 unit PO Q7D 08/31/17 03/12/18 [Vitamin D2] Ferrous Sulfate [Feosol] 325 mg PO DAILY 08/31/17 03/12/18 Spironolactone [Aldactone] 50 mg PO DAILY 08/31/17 03/12/18 buPROPion HCL [Wellbutrin SR] 150 mg PO BID 08/31/17 03/12/18 Cetirizine (Unknown Dose) 1 tab PO DAILY PRN 02/08/18 03/12/18 Multivit with Calcium,Iron,Min 1 each PO DAILY 02/08/18 03/12/18 [Women's Multivitamin] Naproxen Sodium [Aleve] 660 mg PO DAILY PRN 02/08/18 03/12/18 M[place]ie 3 1 dose PO DAILY 02/08/18 03/12/18 Omeprazole [PriLOSEC] 40 mg PO DAILY 02/08/18 03/12/18 Phentermine HCl [Adipex-P] 37.5 mg PO QAM 02/08/18 03/12/18 Vitamin C/Biotin [Hair, Skin and 1 tab PO DAILY 02/08/18 03/12/18 Nails] Previous Rx's Medication Instructions Recorded Cyclobenzaprine [Flexeril] 10 mg PO TID #12 tab 05/05/18 Ibuprofen 600 mg PO Q6HR #20 tablet 05/05/18 Allergies Allergy/AdvReac Type Severity Reaction Status Date / Time No Known Allergies Allergy Verified 05/05/18 20:17 Review of Systems ROS Statement: Those systems with pertinent positive or pertinent negative responses have been documented in the HPI. ROS Other: All systems not noted in ROS Statement are negative. Past Medical History Past Medical History: Blood Disorder, GERD/Reflux, Sleep Apnea/CPAP/BIPAP Additional Past Medical History / Comment(s): BACK PAIN, PCOS, MENSTRUAL PERIODS LENGTHY AND HEAVY, LOW IRON.,HIRSUTISM-(TAKES SPIRONOLACTONE FOR THIS). , STOMACH ULCERS ., HAS BROKEN TOOTH., SLEEP APNEA (NO MACHINE). Anemia-iron infusions. History of Any Multi-Drug Resistant Organisms: None Reported Past Surgical History: Ear Surgery Additional Past Surgical History / Comment(s): TUBES IN EARS (CHILD), EGD Past Anesthesia/Blood Transfusion Reactions: No Reported Reaction Past Psychological History: Anxiety, Depression Smoking Status: Former smoker Past Alcohol Use History: None Reported Past Drug Use History: None Reported - Past Family History Mother Family Medical History: Cancer, Pulmonary Embolus Additional Family Medical History / Comment(s): . Father Family Medical History: Diabetes Mellitus Additional Family Medical History / Comment(s): 2007 from diabetes and anemia got gangrene in foot, OSTEOMYLITIS General Exam - General Exam Comments Initial Comments: General: Awake and alert, well-developed; in no apparent distress. Morbidly obese female sitting comfortably on ED stretcher. HEENT: Head atraumatic, normocephalic. Pupils are equal, round and reactive to light. Extraocular movements intact. Oropharynx moist without erythema or exudate. Neck: Supple. Normal ROM. Cardiovascular: Regular rate and rhythm. No murmurs, rubs or gallops. Chest symmetrical. Respiratory: Lungs clear to auscultation bilaterally. No wheezes, rales or rhonchi. Normal respiratory effort with no use of accessory muscles. Musculoskeletal: Normal ROM, no tenderness bilateral upper and lower extremities. Ambulating normally. Skin: [place], warm and dry without rashes or lesions. Neurological: Alert and oriented x3. CN II-XII grossly intact. Speech is fluent and answers are appropriate. No focal neuro deficits. Psychiatric: Normal mood and affect. No overt signs of depression or anxiety noted. Limitations: no limitations Back exam: Present: normal inspection, full ROM, tenderness (Right SI joint tenderness.). Absent: paraspinal tenderness, vertebral tenderness Course Vital Signs 05/05/18 20:15 Temperature 98.6 F Pulse Rate 90 Respiratory 18 Rate Blood Pressure 155/93 O2 Sat by Pulse 97 Oximetry Medical Decision Making - Medical Decision Making This is a morbidly obese 28-year-old female with history of back pain who presents to the emergency department with chief complaint of acute right-sided back pain. Patient reports pain that starts in the right side of her low back and radiates down the side of her thigh to her knee. She states pain is positional, increasing with forward bending and twisting motions. Denies saddle paresthesias or loss of bladder or bowel function. Denies numbness or tingling. Denies falls, injuries or trauma. Patient is likely suffering from lumbar radiculopathy. She will be started on a course of anti-inflammatories. Vital signs are stable and patient is in no acute distress. She will be discharged home at this time. She is in agreement with plan and voices understanding. All questions were answered. Disposition Clinical Impression: Lumbar radiculopathy Disposition: HOME SELF-CARE Condition: Good Instructions: Acute Low Back Pain (ED), Lumbar Radiculopathy (ED) Additional Instructions: Please take medications as prescribed. Please follow up with primary care provider within 1-2 days. Return to emergency department if symptoms should worsen or any concerns arise. Prescriptions: Cyclobenzaprine [Flexeril] 10 mg PO TID #12 tab Ibuprofen 600 mg PO Q6HR #20 tablet Is patient prescribed a controlled substance at d/c from ED?: No Referrals: Jose Kaba DO [Primary Care Provider] - 1-2 days Time of Disposition: 20:55
== END 2018-05-05 21:12 | disposition home or self-care (01) ==
LOC: EC 20:03
DX: M54.16 Radiculopathy, lumbar region (principal); E66.01 Morbid (severe) obesity due to excess calories; G47.30 Sleep apnea, unspecified; K21.9 Gastro-esophageal reflux disease without esophagitis; F41.9 Anxiety disorder, unspecified; F32.9 Major depressive disorder, single episode, unspecified; Z68.43 Body mass index [BMI] 50.0-59.9, adult; Z79.899 Other long term (current) drug therapy; Z87.891 Personal history of nicotine dependence
CPT/HCPCS: 99283; 96372 ×2; J2360; J1885

== ENCOUNTER → 2018-05-22 | Outpatient (CLI) | payer OTHER ==
[2018-05-22 17:37] LABS: Basophils # (A) 0.1 k/uL (0-0.2); Basophils % (A) 1 %; Eosinophils # (A) 0.1 k/uL (0-0.7); Eosinophils % (A) 1 %; HGB 15.1 gm/dL (11.4-16.0); Lymphocytes # (A) 2.8 k/uL (1.0-4.8); Lymphocytes % (A) 27 %; MCH 31.2 pg (25.0-35.0); MCHC 32.2 g/dL (31.0-37.0); Mean Platelet Volume 6.8; Monocytes # (A) 0.5 k/uL (0-1.0); Monocytes % (A) 5 %; Neutrophils # (A) 6.5 k/uL (1.3-7.7); Neutrophils % (A) 64 %; Platelet Count 360 k/uL (150-450); RBC 4.84 m/uL (3.80-5.40); RDW 13.3 % (11.5-15.5); WBC 10.2 k/uL (3.8-10.6)
[2018-05-22 17:59] LABS: ALT 32 U/L (9-52); AST 27 U/L (14-36); Albumin 4.2 g/dL (3.5-5.0); Alkaline Phosphatase 73 U/L (38-126); Anion Gap 8 mmol/L; Blood Urea Nitrogen 19 mg/dL (7-17); Calcium 10.1 mg/dL (8.4-10.2); Carbon Dioxide 25 mmol/L (22-30); Chloride 106 mmol/L (98-107); Glucose 85 mg/dL (74-99); Potassium 4.7 mmol/L (3.5-5.1); Sodium 139 mmol/L (137-145); Total Bilirubin 0.4 mg/dL (0.2-1.3); Total Protein 7.3 g/dL (6.3-8.2)
== END | disposition home or self-care (01) ==
LOC: LABPAT 16:07
PROVIDERS: ATTEND Surgery Plastic and Reconstructive Surgery
DX: Z01.812 Encounter for preprocedural laboratory examination (principal)
CPT/HCPCS: 36415; 80053; 85025

== ENCOUNTER → 2018-05-22 | Outpatient (CLI) | payer OTHER ==
[2018-05-22 15:35] VITALS: BP 156/72; PULSE 92; TEMP 98.4; BMI 53.5
--- NOTE | 2018-05-22 16:02 | P.PN ---
Subjective Progress Note Date: 05/22/18 DATE OF SERVICE: 05/22/18 CHIEF COMPLAINT: Bariatric assessment. HISTORY OF PRESENT ILLNESS: She reports pulled her right lower back pain. For pain she has taken [place] in the past and is okay. She is during her protein diet. nd was seen in the ER for the Aracelikassandra Fabian is a 28-year-old female who presents with her highest weight of 380 pounds. At her height of 5 feet 8-1/4 inches, she was 380 pounds. Her body mass index was 57.5. [place] body weight is 163 pounds. Today she comes in weighing 352 pounds and BMI of 53.3. She has lost 28 pounds in 6 months, and 10 pouns in 2 months since her last visit in December 2017 when she weighed 362 pounds. She is 189 pounds overweight. She is doing well on Adipex and has achieved requested weight loss goal. She has stopped smoking. She is looking into the gastric bypass. PAST MEDICAL HISTORY: 1. Morbid obesity, highest BMI 57.5. 2. Hypertension. 3. History of gastric ulcers. 4. Diabetes type 2, diet controlled. 5. Osteoarthritis of the lower back. 6. Obstructive sleep apnea 7. Gastroesophageal reflux disease PAST SURGICAL HISTORY: 1. Upper endoscopy. 2. Myringotomy, tubes in the ear. MEDICATIONS: 1. Wellbutrin. 2. Spironolactone. 3. Prilosec. 4. Vitamin D. 5. Iron 6. Zantac 7. Adipex ALLERGIES: Denies. SOCIAL HISTORY: History of tobacco use. History of recreational marijuana use. FAMILY HISTORY: Notable for obesity. She also has a family history of diabetes. She denies any familial history of ulcerative colitis or Crohn's disease. She denies any stomach cancers in her family. She does have history of her mother dying of pulmonary embolism. REVIEW OF SYSTEMS: CONSTITUTIONAL: At her height of 5 feet 8-1/4 inches, she was 380 pounds. Her body mass index was 57.5. [place] body weight is 163 pounds. She has lost 28 pounds in 6 months and is 189 pounds overweight. Today she comes in weighing 352 pounds and BMI of 53.3. RESPIRATORY: Has obstructive sleep apnea. No recent pneumonias. GASTROINTESTINAL: History of gastroesophageal reflux disease. She also reports intolerance to fatty foods. Reports change in bowel habits including constipation. HEENT: No troubles with vision or hearing. Denies dysphagia. ENDOCRINE: Has glucose intolerance. No thyroid disorder. CARDIOVASCULAR: History of hypertension. No recent heart attack or palpitations. MUSCULOSKELETAL: Has lower back pain. Also reports bilateral hip pain. She reports pain along her ankle secondary to morbid obesity. NEURO: No reports of a headache or seizure disorders. PSYCH: No reports of depression or suicidal ideation. HEMATOLOGIC: No bruising or bleeding. SKIN: Has panniculitis. No cancer. PHYSICAL EXAM: VITAL SIGNS: 5 foot 8-07/19, 352 pounds. Body mass index of 53.3 Vital Signs Temp 98.4 F 05/22/18 15:31 Pulse 92 05/22/18 15:31 Resp BP 156/72 05/22/18 15:31 Pulse Ox Intake & Output 05/21/18 05/22/18 05/22/18 18:59 06:59 18:59 Weight 161.025 kg Vital Signs 02/27/18 15:35 Temperature 98.2 F Pulse Rate 94 Blood Pressure 129/96 GENERAL: Well-developed female in no acute distress. HEENT: No sclerae icterus. Extraocular movements grossly intact. Moist buccal pink mucosa. NECK: Supple without lymphadenopathy. CHEST: Nonlabored respirations, equal bilateral excursions. CARDIOVASCULAR: Regular rate and regular rhythm. ABDOMEN: Obese, soft, nontender. Nondistended. MUSCULOSKELETAL: No clubbing, or cyanosis. NEURO: No focal or lateralizing signs. Cranial nerves II through XII grossly within normal limits. PSYCH: Appropriate affect. Alert and oriented to person, place and time. SKIN: Well perfused. Good skin turgor. LABS: Prealbumin low at 17, Iron low at 28, Cholesterol elevated at 232, HDL low at 37 , Vitamin A low at 33, Vitamin D low at 29, Selenium elevated at 162 ASSESSMENT: 1. Morbid obesity due to excess caloric intake. 2. Body mass index of 57.5 to 53.5 3. Obstructive sleep apnea. 4. Osteoarthritis of lower back, due to morbid obesity. 5. Gastroesophageal reflux disease. 6. Vitamin D deficiency. 7. Hypercholesterolemia. 8. Hypertriglyceridemia. 9. Hypertensive heart disease 10. Glucose intolerance. 11. Fatty food intolerance 12. Dietary surveillance and counseling. 13. Vitamin A deficiency 14. Iron deficiency anemia. 15. Tobacco cessation and counseling. PLAN: 1. Will need urine nicotine test for her history of tobacco abuse. 2. An 8 page second-generation bariatric consent form was reviewed in detail including potential of bleeding, infection, leaks, adequate weight loss, nutritional deficiencies which he demonstrated understanding of the risks. 3. A 2 week high-protein low caloric 800 kcal diet described to address hepatomegaly. 4. Preoperative labs including complete metabolic panel and CBC with type and screen recommended. 5. DVT prophylaxis per [place] [facility]. 6. Antibiotic prophylaxis. 7. Inpatient hospitalization anticipated for more than 2 nights. 8. All questions and concerns were addressed with the patient. 9. [facility] [facility] [place] Objective - Vital Signs Vital signs: Vital Signs Temp 98.4 F 05/22/18 15:31 Pulse 92 05/22/18 15:31 Resp BP 156/72 05/22/18 15:31 Pulse Ox Intake & Output 05/21/18 05/22/18 05/22/18 18:59 06:59 18:59 Weight 161.025 kg
== END ==
LOC: BARWHC3 14:50
PROVIDERS: ATTEND Surgery Plastic and Reconstructive Surgery
DX: E66.01 Morbid (severe) obesity due to excess calories (principal); G47.33 Obstructive sleep apnea (adult) (pediatric); M19.90 Unspecified osteoarthritis, unspecified site; K21.9 Gastro-esophageal reflux disease without esophagitis; E55.9 Vitamin D deficiency, unspecified; E78.00 Pure hypercholesterolemia, unspecified; E78.1 Pure hyperglyceridemia; I11.9 Hypertensive heart disease without heart failure; E74.39 Other disorders of intestinal carbohydrate absorption; K90.49 Malabsorption due to intolerance, not elsewhere classified; E50.9 Vitamin A deficiency, unspecified; D50.9 Iron deficiency anemia, unspecified; Z71.6 Tobacco abuse counseling; Z68.43 Body mass index [BMI] 50.0-59.9, adult; Z71.3 Dietary counseling and surveillance; Z72.0 Tobacco use; Z79.899 Other long term (current) drug therapy
CPT/HCPCS: 99211

== ENCOUNTER → 2018-05-23 | Outpatient (CLI) | payer OTHER | END | disposition home or self-care (01) | LOC: LABPAT 15:27 | PROVIDERS: ATTEND Surgery Plastic and Reconstructive Surgery | DX: Z01.818 Encounter for other preprocedural examination (principal) | CPT/HCPCS: 93005 ==

== ENCOUNTER 2018-05-27 09:05 | Inpatient (IN) | payer OTHER ==
--- NOTE | 2018-05-26 21:43 | P.GSHP ---
History of Present Illness H&P Date: 05/27/18 DATE OF SERVICE: 05/27/2018 CHIEF COMPLAINT: Bariatric assessment. HISTORY OF PRESENT ILLNESS: Susan. Fabian is a 28-year-old female who presents with her highest weight of 380 pounds. At her height of 5 feet 8-1/4 inches, she was 380 pounds. Her body mass index was 57.5. [place] body weight is 163 pounds. Today she comes in weighing 352 pounds and BMI of 53.3. She has lost 28 pounds in 6 months, and 10 pouns in 2 months since her last visit in December 2017 when she weighed 362 pounds. She is 189 pounds overweight. She is doing well on Adipex and has achieved requested weight loss goal. She has stopped smoking. She is looking into the gastric bypass. PAST MEDICAL HISTORY: 1. Morbid obesity, highest BMI 57.5. 2. Hypertension. 3. History of gastric ulcers. 4. Diabetes type 2, diet controlled. 5. Osteoarthritis of the lower back. 6. Obstructive sleep apnea 7. Gastroesophageal reflux disease PAST SURGICAL HISTORY: 1. Upper endoscopy. 2. Myringotomy, tubes in the ear. MEDICATIONS: 1. Wellbutrin. 2. Spironolactone. 3. Prilosec. 4. Vitamin D. 5. Iron 6. Zantac 7. Adipex ALLERGIES: Denies. SOCIAL HISTORY: History of tobacco use. History of recreational marijuana use. FAMILY HISTORY: Notable for obesity. She also has a family history of diabetes. She denies any familial history of ulcerative colitis or Crohn's disease. She denies any stomach cancers in her family. She does have history of her mother dying of pulmonary embolism. REVIEW OF SYSTEMS: CONSTITUTIONAL: At her height of 5 feet 8-1/4 inches, she was 380 pounds. Her body mass index was 57.5. [place] body weight is 163 pounds. She has lost 28 pounds in 6 months and is 189 pounds overweight. Today she comes in weighing 352 pounds and BMI of 53.3. RESPIRATORY: Has obstructive sleep apnea. No recent pneumonias. GASTROINTESTINAL: History of gastroesophageal reflux disease. She also reports intolerance to fatty foods. Reports change in bowel habits including constipation. HEENT: No troubles with vision or hearing. Denies dysphagia. ENDOCRINE: Has glucose intolerance. No thyroid disorder. CARDIOVASCULAR: History of hypertension. No recent heart attack or palpitations. MUSCULOSKELETAL: Has lower back pain. Also reports bilateral hip pain. She reports pain along her ankle secondary to morbid obesity. NEURO: No reports of a headache or seizure disorders. PSYCH: No reports of depression or suicidal ideation. HEMATOLOGIC: No bruising or bleeding. SKIN: Has panniculitis. No cancer. PHYSICAL EXAM: VITAL SIGNS: 5 foot 8-07/19, 352 pounds. Body mass index of 53.3 GENERAL: Well-developed female in no acute distress. HEENT: No sclerae icterus. Extraocular movements grossly intact. Moist buccal pink mucosa. NECK: Supple without lymphadenopathy. CHEST: Nonlabored respirations, equal bilateral excursions. CARDIOVASCULAR: Regular rate and regular rhythm. ABDOMEN: Obese, soft, nontender. Nondistended. MUSCULOSKELETAL: No clubbing, or cyanosis. NEURO: No focal or lateralizing signs. Cranial nerves II through XII grossly within normal limits. PSYCH: Appropriate affect. Alert and oriented to person, place and time. SKIN: Well perfused. Good skin turgor. LABS: Prealbumin low at 17, Iron low at 28, Cholesterol elevated at 232, HDL low at 37 , Vitamin A low at 33, Vitamin D low at 29, Selenium elevated at 162 ASSESSMENT: 1. Morbid obesity due to excess caloric intake. 2. Body mass index of 57.5. 3. Obstructive sleep apnea. 4. Osteoarthritis of lower back, due to morbid obesity. 5. Gastroesophageal reflux disease. 6. Vitamin D deficiency. 7. Hypercholesterolemia. 8. Hypertriglyceridemia. 9. Hypertensive heart disease 10. Glucose intolerance. 11. Fatty food intolerance 12. Dietary surveillance and counseling. 13. Vitamin A deficiency 14. Iron deficiency anemia. 15. Tobacco cessation and counseling. PLAN: 1. Will need urine nicotine test for her history of tobacco abuse. 2. Recommend iron infusion for symptomatic and severe iron deficiency anemia 3. Recommend continuing her medical supervised weight loss. 4. Bariatric options between a sleeve, band and a [place]-en-Y gastric bypass were reviewed in detail. She has elected for a gastric bypass. Robotic assisted approach described. 5. The [place] [facility] Data was also reviewed with benefits and risks as described. 6. An 8 page second-generation bariatric consent form was reviewed in detail including potential of bleeding, infection, leaks, adequate weight loss, nutritional deficiencies which he demonstrated understanding of the risks. 7. A 2 week high-protein low caloric 800 kcal diet described to address hepatomegaly. 8. Preoperative labs including complete metabolic panel and CBC with type and screen recommended. 9. DVT prophylaxis per [place] [facility]. 10. Antibiotic prophylaxis. 11. Inpatient hospitalization anticipated for more than 2 nights. 11. All questions and concerns were addressed with the patient. 12. Recommended dietary classes. Past Medical History Past Medical History: Blood Disorder, GERD/Reflux, Sleep Apnea/CPAP/BIPAP Additional Past Medical History / Comment(s): BACK PAIN, PCOS, MENSTRUAL PERIODS LENGTHY AND HEAVY, LOW IRON.,HIRSUTISM-(TAKES SPIRONOLACTONE FOR THIS). , STOMACH ULCERS ., HAS BROKEN TOOTH., SLEEP APNEA (NO MACHINE). Anemia-iron infusions. History of Any Multi-Drug Resistant Organisms: None Reported Past Surgical History: Ear Surgery Additional Past Surgical History / Comment(s): TUBES IN EARS (CHILD), EGD Past Anesthesia/Blood Transfusion Reactions: No Reported Reaction Smoking Status: Former smoker - Past Family History Mother Family Medical History: Cancer, Pulmonary Embolus Additional Family Medical History / Comment(s): . Father Family Medical History: Diabetes Mellitus Additional Family Medical History / Comment(s): 2007 from diabetes and anemia got gangrene in foot, OSTEOMYLITIS Medications and Allergies Home Medications Medication Instructions Recorded Confirmed Type Spironolactone [Aldactone] 50 mg PO DAILY 08/31/17 05/22/18 History Omeprazole [PriLOSEC] 40 mg PO DAILY 02/08/18 05/22/18 History Allergies Allergy/AdvReac Type Severity Reaction Status Date / Time No Known Allergies Allergy Verified 05/22/18 15:35
[~2018-05-27 09:05] MED LIST changes: +CHLORHEXIDINE GLUCONATE 15 ML CUP MUCOUS MEM ONE; +DEXAMETHASONE SOD PHOSPHATE 10 MG/ML 1 ML VIAL IV ONE; +ENOXAPARIN 40 MG/0.4 ML SYRINGE SQ STA; -LACTATED RINGERS 1,000 ML IV SCH; +MIDAZOLAM 2 MG/2 ML VIAL IV PRN; +ONDANSETRON 4 MG/2 ML VIAL IVP ONE; +PANTOPRAZOLE 40 MG/10 ML VIAL IV STA; +fentaNYL (PF) 50 MCG/ML 2 ML AMP IV PRN
[2018-05-27] MEDS ORDERED: BUPIVACAIN-EPI 0.25%-1:200,000 30 ML VIAL SQ ONE (10:00)
[2018-05-27] MEDS ORDERED: ONDANSETRON 4 MG/2 ML VIAL IVP ONE (10:01)
[2018-05-27] MEDS ORDERED: DEXAMETHASONE SOD PHOSPHATE 10 MG/ML 1 ML VIAL IV ONE (10:01)
[2018-05-27] MEDS: LACTATED RINGERS 1,000 ML IV SCH ×3 (10:01→16:15)
[2018-05-27] MEDS ORDERED: SCOPOLAMINE 1.5MG/72HR PATCH TRANSDERM ONE (10:04)
[2018-05-27] MEDS ORDERED: PROPOFOL 10 MG/ML 20 ML VIAL IV ONE (10:06)
[2018-05-27] MEDS ORDERED: SUCCINYLCHOLINE CHLORIDE VIAL 200 MG/10 ML VIAL IV ONE (10:06)
[2018-05-27] MEDS ORDERED: LIDOCAINE 1% INJ 10MG/ML (20 ML MDV) ONE (10:06)
[2018-05-27] MEDS ORDERED: KETAMINE 10 MG/ML 20 ML VIAL ONE (10:06)
[2018-05-27] MEDS ORDERED: HYDROmorphone (PF) 1 MG/ML ONE (10:06)
[2018-05-27] MEDS ORDERED: ONDANSETRON 4 MG/2 ML VIAL ONE (10:06)
[2018-05-27] MEDS ORDERED: MIDAZOLAM 2 MG/2 ML VIAL ONE (10:06)
[2018-05-27] MEDS ORDERED: GLYCOPYRROLATE 0.2 MG/ML 2 ML VIAL ONE (10:06)
[2018-05-27] MEDS ORDERED: fentaNYL (PF) 50 MCG/ML 2 ML AMP ONE (10:06)
[2018-05-27] MEDS ORDERED: ROCURONIUM BROMIDE 10 MG/ML 10 ML VIAL IV ONE (10:06)
[2018-05-27] MEDS ORDERED: NEOSTIGMINE 1 MG/ML 10 ML VIAL ONE (10:06)
[2018-05-27] MEDS ORDERED: LACTATED RINGERS 1,000 ML IV ONE ×2 (12:01→12:59)
[2018-05-27] MEDS ORDERED: diphenhydrAMINE 50 MG/ML 1 ML VIAL IVP PRN (14:48)
[2018-05-27] MEDS ORDERED: ACETAMINOPHEN IV (For NPO) 1,000 MG in EMPTY BAG 1 BAG IVPB ONE (14:48)
[2018-05-27] MEDS ORDERED: NALOXONE 0.4 MG/ML 1 ML VIAL IV PRN (14:48)
--- NOTE | 2018-05-27 14:52 | P.OP ---
Date of Procedure: 05/27/18 Description of Procedure: SURGEON: ELISEO GARCIA MD PREOPERATIVE DIAGNOSES: 1. Morbid obesity due to excess caloric intake. 2. Body mass index of 57.5. 3. Obstructive sleep apnea. 4. Osteoarthritis of lower back, due to morbid obesity. 5. Gastroesophageal reflux disease. 6. Vitamin D deficiency. 7. Hypercholesterolemia. 8. Hypertriglyceridemia. 9. Hypertensive heart disease 10. Glucose intolerance. 11. Fatty food intolerance 12. Dietary surveillance and counseling. 13. Vitamin A deficiency 14. Iron deficiency anemia. 15. Tobacco cessation and counseling. POSTOPERATIVE DIAGNOSES: 1. Morbid obesity due to excess caloric intake. 2. Body mass index of 57.5. 3. Obstructive sleep apnea. 4. Osteoarthritis of lower back, due to morbid obesity. 5. Gastroesophageal reflux disease. 6. Vitamin D deficiency. 7. Hypercholesterolemia. 8. Hypertriglyceridemia. 9. Hypertensive heart disease 10. Glucose intolerance. 11. Fatty food intolerance 12. Dietary surveillance and counseling. 13. Vitamin A deficiency 14. Iron deficiency anemia. 15. Tobacco cessation and counseling. 16. 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 Hepatomegaly with fatty liver disease OPERATION: 1. Robotic assisted da Tomas Xi laparoscopic Rhoda-en-Y gastric bypass, 100 cm antecolic antegastric Rhoda limb, with 25 mm EEA. 2. Intraoperative esophagogastrojejunoscopy. ANESTHESIA: GETA and local ESTIMATED BLOOD LOSS: 20 mL SPECIMENS REMOVED: None. COMPLICATIONS: NONE. INDICATIONS: Araceli Fabian is a 28-year-old female who presents with her highest weight of 380 pounds. At her height of 5 feet 8-1/4 inches, she was 380 pounds. Her body mass index was 57.5. [place] body weight is 163 pounds. Today she comes in weighing 348 pounds and BMI of 53.1. She has undergone medical supervised weight loss. A second-generation bariatric consent form was described in detail including the possibility of protein malnutrition, leaks, gastrojejunal stricture, venous thrombosis, need for further surgery for which she demonstrated understanding. Benefits and risks of the procedure were described at length. Informed consent was obtained. DESCRIPTION: The patient was brought into the operating room theater. She was placed supine. She had received Lovenox subcutaneously for DVT prophylaxis. Additionally she Peridex oral solution as an oral decontaminant was placed per anesthesia. After general induction, the abdomen was prepped and draped in standard sterile fashion. Ioban draping was placed along the abdomen. A robotic da Tomas Xi system was prepped and primed. The xiphoid to umbilicus was measured of 26.5 cm. Incisions were proposed at 20 cm from the xiphoid. Proposed port sites were marked with indelible marker along the anterior axillary line bilaterally, mid clavicular line bilaterally with each port marked 10 cm from each other. The robotic stapler port was marked for the right midclavicular line including along the left midclavicular line. A 5 mm 0 degrees laparoscopic trocar entry was performed along the left upper quadrant. The abdomen was insufflated to 15 mmHg pressure, which he tolerated well. Diagnostic laparoscopy demonstrated no injury to bowel, viscera, or mesentery. The liver was large consistent with hepatomegaly and fatty liver disease. An 8 mm camera port was placed left lateral to the umbilicus at the epigastrium , 15 cm distal to the xiphoid. Next, 12-mm robot stapler port was placed along the right mid abdomen. An 12 mm port was exchanged along the left upper quadrant. An 8 mm port was placed on the left lateral abdominal wall under direct visualization Please note that the ports were placed 18 to 20 cm away from the target anatomy of the stomach. Care was taken to check that each robotic arm was safely away from collision with the bed or the patient. At the epigastrium, a medium sized Prema liver retractor was placed under direct visualization with the Iron Entry Level placed under the right shoulder of the patient. The patient was repositioned in reverse Trendelenburg position at 14-degrees after lowering the bed. The robot was docked over the patient. Using grasper for arm 3, a grasper for arm 1, including vessel sealer for arm 4 , the robotic system was docked and primed as described. Instruments were interchanged by the anesthesiology physician assistant including endoscissors, the needle nascar driver, and stapler. I had sat at the console. Next, the transverse mesocolon was reflected into the upper abdomen after dividing the mesentery and preparing for the jejunojejunostomy portion of the case. An omental adhesion involving the mid jejunum was identified and divided. The ligament of Treitz was identified and measured 70 cm antegrade and marked using 3-0 Silk. The jejunum was divided at the 70 cm point using 45-mm blue loads above the suture measurement. The biliopancreatic limb was held in place. The Rhoda limb was measured 100 cm in an antegrade fashion to avoid tension along the proposed gastrojejunal anastomosis. At 100 cm along the anti-mesenteric border of the Rhoda limb, a jejunojejunostomy was proposed whereby enterotomies were created along the biliopancreatic limb including the Rhoda limb using a Bovie cautery. A stay suture of 3-0 Slik was placed to align and create the anastomosis. The enterotomies along the anti-mesenteric borders were created followed by unidirectional fire from the patient's right side using 2 - 45 mm blue load Smart technology robotic stapler. The jejunojejunostomy was found to be hemostatic. The enterotomy was closed after horizontal mattress stitch of 3-0 silk used to elevate the enterotomy followed by closure with the robotic stapler blue load. The jejunal limb was temporarily tacked along the left upper quadrant. Attention was now brought to the creation of the gastrojejunostomy. Along the lesser curvature of the stomach between the second and third veins, dissection was made along the retrogastric space to allow first firing of the robotic staple. Green and blue loads of 45 mm staplers were used to divide the stomach to create the gastric pouch. The patient was then prepared for placement of a Orvil. The patient was Mallampati 2. A 25-mm Orvil was selected for placement by the nurse welding machine operator friction. The Orvil tubing was placed posterior to the staple line of the gastric pouch and brought out through the left inferior lateral port. I re-scrubbed into the case. The robotic arms were temporarily undocked. The Orvil was then carefully and successfully navigated with the help of the nurse welding machine operator friction into the gastric pouch. The sutures were identified and divided. The tubing was from the 25 mm anvil. As the Orvil had been placed, the blind jejunal limb was brought proximally into the upper abdomen. No torsion was found upon the Rhoda limb. No tension was identified as the limb was brought along the upper abdomen. The blind jejunal limb was previously opened using endo -scissors with cautery. The 25-mm EEA stapler was brought through the left anterior lateral port site from the left side. The EEA stapler was brought through the open jejunal limb and its needle was deployed at the antimesenteric border where the anvil were mated for approximately 1 minute upon firing. The stapler was removed after irrigating the shaft of the instrument with warm normal saline. Donuts were found to be intact and on both sides. The da Tomas Xi robot arms were then re-docked. I sat at the console. The open jejunal limb defect was closed using 45 mm blue loads after releasing any tension from the blind jejunal limb. Care was taken to avoid any long blind limb to avoid candycane syndrome. Reinforcement sutures were placed along the gastrojejunal anastomosis and placed along the 9:00 and 3 o'clock position using 3-0 Polysorb. The Andrade and jejunojejunostomy mesenteric defects were obliterated by her intra- abdominal fat. I then went to the head of the bed to perform the esophagogastrojejunoscopy and a leak test. An Olympus gastroscope was passed along the posterior oropharynx which was unremarkable for any injury to the vocal cords. The scope was passed down to the proximal portion of the pouch, whereby no active bleeding was encountered. Excellent visualization of the gastrojejunostomy anastomosis, including the Rhoda limb was encountered with endoscopic image obtained. Blood clots were suctioned from the anastomosis. The gastrointestinal tract was desufflated. No evidence of intraoperative leak was encountered as the gastric pouch and anastomosis were submerged under normal saline solution. The robot was then undocked. I then went back to the bedside of the patient, whereby with coordinated effort of the anesthesiology physician assistant, irrigation was aspirated from the upper abdominal cavity. Tisseel was placed circumferentially over the anastomosis of the gastrojejunostomy. The fascial defect of the EEA stapler was closed using Leroy Cunha and 0 Vicryl. All instruments and pneumoperitoneum were evacuated from the abdominal cavity. The port correlating with the EEA stapler device was cleansed with normal saline solution and hydrogen peroxide. The rest of incisions were reapproximated using 4-0 Monocryl in an interrupted subcuticular fashion. Local anesthetic was infiltrated along the skin for postop analgesia. Liquid glue was applied to the skin. OptiFoam dressing was placed along the EEA stapler site. At the end of the procedure, needle, sponge and instrument count had been verified correct by the operating room surgical technologist. She had tolerated the procedure well and was extubated and taken to the postanesthesia unit in stable condition. Intraoperative findings were described to the patient's family who were very pleased with the level of care. Operative Findings: 1. Biliopancreatic limb 70 cm 2. Bypass performed using 100 cm rhoda limb secondary to avoid increased tension at 150 cm. 3. Mcintyre defect and jejunojejunostomy defect obliterated by moderate intra- abdominal fat. 4. Leak test negative with gastrojejunal anastomosis patent and hemostatic. 5. Reinforcement sutures were placed along the gastrojejunal anastomosis 6. Fatty liver disease with hepatomegaly
[2018-05-27] MEDS: HYDROmorphone 0.5 MG/0.5 ML SYRINGE IVP PRN ×2 (15:15→15:22)
[2018-05-27] MEDS: 0.9% NACL WITH KCL 20 MEQ/L 1,000 ML IV SCH ×2 (16:06→23:39)
[2018-05-27] MEDS: ALBUTEROL NEBULIZED 2.5 MG/3 ML INHALATION SCH ×2 (16:42→20:56)
[2018-05-27] MEDS: HYDROmorphone 1 MG/ML 1 ML SYRINGE IVP PRN ×2 (17:29→21:27)
[2018-05-27] MEDS: AMPICILLIN-SULBACTAM 3 GM in SODIUM CHLORIDE 0.9% 100 ML IVPB SCH ×2 (17:31→23:39)
[2018-05-27] MEDS: HYOSCYAMINE ORAL DROPS 1.875 MG/15 ML BOTTLE PO SCH ×2 (17:31→23:40)
[2018-05-27] MEDS: SIMETHICONE 40 MG/0.6 ML DROPS 2,000 MG/30 ML BOTTLE PO SCH ×2 (17:33→23:40)
[2018-05-27] MEDS: ONDANSETRON 4 MG/2 ML VIAL IVP PRN (17:43)
[2018-05-27] MEDS ORDERED: DEXAMETHASONE SOD PHOSPHATE 10 MG/ML 1 ML VIAL IV STA (19:26)
[2018-05-27 19:41] VITALS: BMI 53.1
[2018-05-27] MEDS: METOCLOPRAMIDE 5 MG/ML 2 ML VIAL IVP SCH (23:39)
[2018-05-28] MEDS: HYDROmorphone 1 MG/ML 1 ML SYRINGE IVP PRN ×7 (00:32→21:31)
[2018-05-28] MEDS: METOCLOPRAMIDE 5 MG/ML 2 ML VIAL IVP SCH ×4 (05:52→23:48)
[2018-05-28] MEDS: HYOSCYAMINE ORAL DROPS 1.875 MG/15 ML BOTTLE PO SCH ×3 (05:53→18:33)
[2018-05-28] MEDS: SIMETHICONE 40 MG/0.6 ML DROPS 2,000 MG/30 ML BOTTLE PO SCH ×3 (05:53→18:32)
[2018-05-28 07:09] LABS: Basophils % (A) 0 %; Eosinophils % (A) 0 %; HCT 38.8 % (34.0-46.0); HGB 12.8 gm/dL (11.4-16.0); Lymphocytes # (A) 0.9 k/uL (1.0-4.8); Lymphocytes % (A) 5 %; MCH 31.7 pg (25.0-35.0); Mean Platelet Volume 7.2; Monocytes # (A) 0.6 k/uL (0-1.0); Monocytes % (A) 3 %; Neutrophils # (A) 18.5 k/uL (1.3-7.7); Neutrophils % (A) 92 %; Platelet Count 351 k/uL (150-450); RBC 4.04 m/uL (3.80-5.40); RDW 13.2 % (11.5-15.5); WBC 20.2 k/uL (3.8-10.6)
[2018-05-28 07:18] LABS: Anion Gap 8 mmol/L; Blood Urea Nitrogen 18 mg/dL (7-17); Calcium 9.1 mg/dL (8.4-10.2); Carbon Dioxide 23 mmol/L (22-30); Chloride 107 mmol/L (98-107); Magnesium 1.7 mg/dL (1.6-2.3); Phosphorus 2.6 mg/dL (2.5-4.5); Potassium 4.5 mmol/L (3.5-5.1); Sodium 138 mmol/L (137-145)
[2018-05-28] MEDS: 0.9% NACL WITH KCL 20 MEQ/L 1,000 ML IV SCH ×3 (08:09→18:15)
[2018-05-28] MEDS ORDERED: ENOXAPARIN 40 MG/0.4 ML SYRINGE SQ SCH (09:00)
[2018-05-28] MEDS: ALBUTEROL NEBULIZED 2.5 MG/3 ML INHALATION SCH ×4 (09:07→21:15)
[2018-05-28] MEDS: PANTOPRAZOLE 40 MG/10 ML VIAL IV SCH (09:24)
--- NOTE | 2018-05-28 12:22 | P.PN ---
<NirajEchoMakenna M - Last Filed: 05/28/18 12:12> Subjective Progress Note Date: 05/28/18 28-year-old female seen in a postop follow-up visit. Patient continues to report having a nausea sensation no active emesis. Reportedly tolerating the bariatric clear liquid diet abdomen soft surgical tenderness appropriate surgical dressing site dry abdominal binder in place did note the white count is elevated 20.2 with a mag 1.7 which is being replaced PT OT at bedside patient ambulate in the [place] Robotic assisted da Tomas Xi laparoscopic [place]-en-Y gastric bypass, 100 cm antecolic antegastric [place] limb, with 25 mm EEA. Done on May 27 Objective - Vital Signs Vital signs: Vital Signs Temp 97.8 F 05/28/18 07:35 Pulse 120 H 05/28/18 09:17 Resp 16 05/28/18 00:50 BP 139/77 05/28/18 07:35 Pulse Ox 93 L 05/28/18 10:34 Intake & Output 05/27/18 05/28/18 05/28/18 18:59 06:59 18:59 Intake Total 2950 2500 Output Total 75 900 Balance 2875 1600 Weight 158.4 kg 158.4 kg 158.4 kg Intake: IV 2950 Intake, IV Titration 2500 Amount 0.9% NaCl with KCl 20 Meq 2400 /l 1,000 ml @ 150 mls/hr IV .Q6H40M [facility] Rx#: [id number] Ampicillin-Sulbactam 3 gm 100 In Sodium Chloride 0.9% 100 ml @ 200 mls/hr IVPB Q6HR [facility] Rx#:[id number] Output: Urine 75 900 Uretheral (Nixon) 900 Other: Voiding Method Indwelling Catheter Indwelling Catheter # Voids 1 - Exam Physical exam 28-year-old female sitting up in bed physical therapy at bedside continues to report a nausea sensation no active emesis Lungs diminished at the bases otherwise adequate air movement. Able to use the incentive spirometer 1500 achieved no cough noted no shortness of breath Heart S1-S2 audible heart rate in the 110-100 no murmur noted Abdomen obese soft surgical dressing sites dry surgical tenderness appropriate states passing gas no stool urinating no difficulty states passing gas abdominal binder in place Extremities no edema noted - Labs CBC & Chem 7: 05/28/18 06:14 05/28/18 06:14 Labs: Abnormal Lab Results - Last 24 Hours (Table) 05/28/18 05/28/18 Range/Units 06:14 06:14 WBC 20.2 H (3.8-10.6) k/uL Neutrophils # 18.5 H (1.3-7.7) k/uL Lymphocytes # 0.9 L (1.0-4.8) k/uL BUN 18 H (7-17) mg/dL Assessment and Plan Assessment: Impression Morbid obesity due to excessive calorie intake BMI 57 Obstructive sleep apnea Vitamin D deficiency Fatty food intolerance Iron deficiency anemia Vitamin D deficiency current every day smoker Status post May 27 Robotic assisted da Tomas Xi laparoscopic [place]-en-Y gastric bypass, 100 cm antecolic antegastric [place] limb, with 25 mm EEA. for morbid obesity Leukocytosis suspect reactive Plan Continue postop bariatric care PT OT Increase activity Continue bariatric clear liquid diet Anti-emetics as ordered Repeat labs in the morning Pain control IV Zosyn as ordered The above impression and plan of care have been discussed and directed by signing physician. Makenna Healy nurse practitioner acting as scribe for signing physician. <Jahaira Yates N - Last Filed: 05/28/18 13:29> Objective - Vital Signs Vital signs: Vital Signs Temp 97.8 F 05/28/18 07:35 Pulse 120 H 05/28/18 09:17 Resp 16 05/28/18 00:50 BP 139/77 05/28/18 07:35 Pulse Ox 93 L 05/28/18 10:34 Intake & Output 05/27/18 05/28/18 05/28/18 18:59 06:59 18:59 Intake Total 2950 2500 Output Total 75 900 Balance 2875 1600 Weight 158.4 kg 158.4 kg 158.4 kg Intake: IV 2950 Intake, IV Titration 2500 Amount 0.9% NaCl with KCl 20 Meq 2400 /l 1,000 ml @ 150 mls/hr IV .Q6H40M [facility] Rx#: [id number] Ampicillin-Sulbactam 3 gm 100 In Sodium Chloride 0.9% 100 ml @ 200 mls/hr IVPB Q6HR [facility] Rx#:[id number] Output: Urine 75 900 Uretheral (Nixon) 900 Other: Voiding Method Indwelling Catheter Indwelling Catheter # Voids 1 - Labs CBC & Chem 7: 05/28/18 06:14 05/28/18 06:14 Labs: Abnormal Lab Results - Last 24 Hours (Table) 05/28/18 05/28/18 Range/Units 06:14 06:14 WBC 20.2 H (3.8-10.6) k/uL Neutrophils # 18.5 H (1.3-7.7) k/uL Lymphocytes # 0.9 L (1.0-4.8) k/uL BUN 18 H (7-17) mg/dL
[2018-05-28] MEDS ORDERED: MAGNESIUM SULFATE-D5W PMX 1 GM in DEXTROSE/WATER 1 100ML.BAG IVPB ONE (13:00)
--- NOTE | 2018-05-28 13:10 | P.PN ---
Progress Note - Text Progress Note Date: 05/28/18 Called by nursing to evaluate the patient patient just vomited approximately 200 ml of coffee-ground emesis with several clots. Patient reports having abdominal tightness. Did notify Dr. Pena about the event pressures to stop the Lovenox and given a 2 L fluid bolus now will monitor Heart rate 110 blood pressure 121/77 patient is sitting up in bed surgical dressing site dry The above impression and plan of care have been discussed and directed by signing physician. Makenna Healy nurse practitioner acting as scribe for signing physician.
[2018-05-28] MEDS: LACTATED RINGERS 1,000 ML IV SCH ×3 (13:40→14:51)
[2018-05-28] MEDS: ONDANSETRON 4 MG/2 ML VIAL IVP PRN (15:14)
[2018-05-28] MEDS ORDERED: PIPERACILLIN-TAZOBACTAM 3.375 GM in SODIUM CHLORIDE 0.9% 100 ML IVPB SCH (16:00)
--- NOTE | 2018-05-28 18:06 | P.PN ---
Progress Note - Text Progress Note Date: 05/28/18 Patient seen and evaluated. She complains of nausea and had hematemesis with post op nausea and vomiting. She reports usually sleep on her belly. She has history of iron deficiency anemia. Recommend iron infusions, ant-emetics, and fluid hydration. Possible additional imaging of the abdomen pending clinical course tomorrow. Continue with hospitalization
[2018-05-28] MEDS ORDERED: SODIUM CHLORIDE 0.9% 2,000 ML IV ONE (18:07)
[2018-05-28] MEDS: ONDANSETRON 4 MG/2 ML VIAL IVP SCH (18:59)
[2018-05-28] MEDS: MAGNESIUM SULFATE-D5W PMX 1 GM in DEXTROSE/WATER 1 100ML.BAG IVPB SCH ×2 (18:59→21:32)
[2018-05-28] MEDS: AMPICILLIN-SULBACTAM 3 GM in SODIUM CHLORIDE 0.9% 100 ML IVPB SCH (23:55)
[2018-05-29] MEDS: SIMETHICONE 40 MG/0.6 ML DROPS 2,000 MG/30 ML BOTTLE PO SCH ×5 (00:02→22:56)
[2018-05-29] MEDS: HYOSCYAMINE ORAL DROPS 1.875 MG/15 ML BOTTLE PO SCH ×5 (00:03→23:09)
[2018-05-29] MEDS: HYDROmorphone 1 MG/ML 1 ML SYRINGE IVP PRN ×4 (00:13→10:34)
[2018-05-29] MEDS: ONDANSETRON 4 MG/2 ML VIAL IVP SCH ×5 (02:18→23:02)
[2018-05-29] MEDS: 0.9% NACL WITH KCL 20 MEQ/L 1,000 ML IV SCH ×3 (05:17→23:11)
[2018-05-29] MEDS: METOCLOPRAMIDE 5 MG/ML 2 ML VIAL IVP SCH ×4 (06:09→23:12)
[2018-05-29] MEDS: AMPICILLIN-SULBACTAM 3 GM in SODIUM CHLORIDE 0.9% 100 ML IVPB SCH ×5 (06:09→21:37)
[2018-05-29] MEDS ORDERED: BISACODYL 5 MG TABLET.DR PO PRN (08:00)
[2018-05-29] MEDS: ALBUTEROL NEBULIZED 2.5 MG/3 ML INHALATION SCH ×4 (08:11→20:00)
[2018-05-29 08:27] LABS: Anion Gap 4 mmol/L; Blood Urea Nitrogen 21 mg/dL (7-17); Calcium 8.5 mg/dL (8.4-10.2); Carbon Dioxide 29 mmol/L (22-30); Chloride 108 mmol/L (98-107); Glucose 137 mg/dL (74-99); Magnesium 2.1 mg/dL (1.6-2.3); Potassium 4.6 mmol/L (3.5-5.1); Sodium 141 mmol/L (137-145)
[2018-05-29 08:41] LABS: Basophils % (A) 0 %; Eosinophils % (A) 0 %; HCT 26.7 % (34.0-46.0); Lymphocytes # (A) 2.2 k/uL (1.0-4.8); Lymphocytes % (A) 12 %; MCH 32.6 pg (25.0-35.0); MCHC 33.8 g/dL (31.0-37.0); MCV 96.4 fL (80.0-100.0); Mean Platelet Volume 7.6; Monocytes # (A) 0.9 k/uL (0-1.0); Monocytes % (A) 5 %; Neutrophils # (A) 15.7 k/uL (1.3-7.7); Neutrophils % (A) 82 %; Platelet Count 319 k/uL (150-450); RBC 2.77 m/uL (3.80-5.40); RDW 13.7 % (11.5-15.5); WBC 19.2 k/uL (3.8-10.6)
[2018-05-29] MEDS: PANTOPRAZOLE 40 MG/10 ML VIAL IV SCH (10:24)
[2018-05-29] MEDS: SODIUM FERRIC GLUCONAT-SUCROSE 125 MG in SODIUM CHLORIDE 0.9% 100 ML IVPB SCH (10:25)
[2018-05-29 12:10] LABS: Iron Saturation 27.4 (12.00-45.00)
--- NOTE | 2018-05-29 13:28 | P.PN ---
Subjective Progress Note Date: 05/29/18 CHIEF COMPLAINT: Morbid obesity HISTORY OF PRESENT ILLNESS: Araceli Fabian is a 28-year-old female who is status post robotic gastric bypass 05/27/2018. She had severe postoperative nausea and vomiting following anesthesia. As a result, she had hematemesis. Her nausea is almost completely resolved today. She reports her nausea is exacerbated after obtaining IV Dilaudid. Her abdominal distention had mildly improved. She is eager to go home. Abdominal pain has improved. PHYSICAL EXAM: GENERAL: Well-developed female in no acute distress. HEENT: No sclerae icterus. Extraocular movements grossly intact. Moist buccal pink mucosa. NECK: Supple without lymphadenopathy. CHEST: Nonlabored respirations, equal bilateral excursions. CARDIOVASCULAR: Tachycardic. 2+ radial pulses. ABDOMEN: Obese, soft, nontender. decreased abdominal distention. Dressing left upper quadrant improved. Minimal incisional tenderness left upper quadrant. MUSCULOSKELETAL: No clubbing, or cyanosis. NEURO: No focal or lateralizing signs. Cranial nerves II through XII grossly within normal limits. PSYCH: Appropriate affect. Alert and oriented to person, place and time. SKIN: Well perfused. Good skin turgor. ASSESSMENT: 1. Morbid obesity due to excess caloric intake. 2. Body mass index of 57.5. 3. Obstructive sleep apnea. 4. Osteoarthritis of lower back, due to morbid obesity. 5. Gastroesophageal reflux disease. 6. Vitamin D deficiency. 7. Hypercholesterolemia. 8. Hypertriglyceridemia. 9. Hypertensive heart disease 10. Glucose intolerance. 11. Fatty food intolerance 12. Dietary surveillance and counseling. 13. Vitamin A deficiency 14. Iron deficiency anemia. 15. Tobacco cessation and counseling. 16. Status post robotic gastric bypass 17. Dehydration PLAN: 1. Recommend IV fluid hydration today. 2. Restart bariatric clears. 3. Discontinue narcotics such as Dilaudid with alternatives of Tylenol for pain 4. Iron infusion for iron deficiency anemia. 5. Decrease hemoglobin secondary to dehydration with large volume replacement and hematemesis due to postoperative nausea and vomiting 6. Reevaluation for potential discharge 24-48 hours pending clinical improvement Objective - Vital Signs Vital signs: Vital Signs Temp 98.2 F 05/28/18 23:41 Pulse 113 H 05/28/18 23:41 Resp 17 05/28/18 23:41 BP 133/82 05/28/18 23:41 Pulse Ox 96 05/28/18 23:41 Intake & Output 05/28/18 05/29/18 05/29/18 18:59 06:59 18:59 Intake Total 1000 Output Total 1100 400 Balance -100 -400 Weight 158.4 kg Intake: Intake, IV Titration 1000 Amount Lactated Ringers 1,000 ml 1000 @ 999 mls/hr IV .Q1H1M [facility] Rx#:[id number] Output: Urine 450 300 Emesis 650 100 - Labs CBC & Chem 7: 05/29/18 07:28 05/29/18 07:28 Labs: Abnormal Lab Results - Last 24 Hours (Table) 05/29/18 05/29/18 05/29/18 Range/Units 07:28 07:28 07:28 WBC 19.2 H (3.8-10.6) k/uL RBC 2.77 L (3.80-5.40) m/uL Hgb 9.0 L D (11.4-16.0) gm/dL Hct 26.7 L (34.0-46.0) % Neutrophils # 15.7 H (1.3-7.7) k/uL Chloride 108 H (98-107) mmol/L BUN 21 H (7-17) mg/dL Glucose 137 H (74-99) mg/dL TIBC 208 L (228-460) ug/dL Assessment and Plan (1) Morbid obesity with BMI of 50.0-59.9, adult Current Visit: Yes Status: Acute Code(s): E66.01 - MORBID (SEVERE) OBESITY DUE TO EXCESS CALORIES; Z68.43 - BODY MASS INDEX (BMI) 50-59.9, ADULT SNOMED Code(s): 260059530 (2) Gastric bypass status for obesity Current Visit: Yes Status: Acute Code(s): Z98.84 - BARIATRIC SURGERY STATUS SNOMED Code(s): 652904580 (3) Postoperative nausea and vomiting Current Visit: Yes Status: Acute Code(s): R11.2 - NAUSEA WITH VOMITING, UNSPECIFIED; Z98.890 - OTHER SPECIFIED POSTPROCEDURAL STATES SNOMED Code(s): 3956740 (4) Hematemesis with nausea Current Visit: Yes Status: Acute Code(s): K92.0 - HEMATEMESIS SNOMED Code( s): 9367913 (5) Dehydration Current Visit: Yes Status: Acute Code(s): E86.0 - DEHYDRATION SNOMED Code( s): 41370925 (6) Hypertensive heart disease Current Visit: Yes Status: Acute Code(s): I11.9 - HYPERTENSIVE HEART DISEASE WITHOUT HEART FAILURE SNOMED Code(s): 13087357 (7) Sleep apnea Current Visit: Yes Status: Acute Code(s): G47.30 - SLEEP APNEA, UNSPECIFIED SNOMED Code(s): 75361156 (8) Tobacco abuse, in remission Current Visit: Yes Status: Acute Code(s): F17.201 - NICOTINE DEPENDENCE, UNSPECIFIED, IN REMISSION SNOMED Code(s): 595198093 (9) Osteoarthritis of knees, bilateral Current Visit: Yes Status: Acute Code(s): M17.0 - BILATERAL PRIMARY OSTEOARTHRITIS OF KNEE SNOMED Code(s): 899863044 (10) Osteoarthritis of hips, bilateral Current Visit: Yes Status: Acute Code(s): M16.0 - BILATERAL PRIMARY OSTEOARTHRITIS OF HIP SNOMED Code(s): 816218327 (11) Iron deficiency anemia due to dietary causes Current Visit: Yes Status: Acute Code(s): D50.8 - OTHER IRON DEFICIENCY ANEMIAS SNOMED Code(s): 528892244
[2018-05-29] MEDS ORDERED: ACETAMINOPHEN ORAL SUSP 160 MG/5 ML CUP PO SCH (13:30)
[2018-05-29] MEDS ORDERED: diphenhydrAMINE ELIXIR 25 MG/10 ML CUP PO PRN (13:35)
[2018-05-29] MEDS: LACTATED RINGERS 1,000 ML IV SCH (13:44)
[2018-05-29] MEDS: ACETAMINOPHEN ORAL SUSP (PEDS) 3,840 MG/120 ML BOTTLE PO SCH ×2 (14:16→21:37)
[2018-05-29 14:31] VITALS: RESP 16
[2018-05-29] MEDS: SODIUM CHLORIDE 0.9% 1,000 ML IV SCH ×2 (16:04→17:45)
[2018-05-29] MEDS: HYDROcodone/APAP 15 ML SOLUTION PO PRN ×2 (16:24→22:57)
[2018-05-30] MEDS: AMPICILLIN-SULBACTAM 3 GM in SODIUM CHLORIDE 0.9% 100 ML IVPB SCH ×3 (01:34→12:52)
[2018-05-30] MEDS: ACETAMINOPHEN ORAL SUSP (PEDS) 3,840 MG/120 ML BOTTLE PO SCH ×2 (04:29→10:30)
[2018-05-30] MEDS: METOCLOPRAMIDE 5 MG/ML 2 ML VIAL IVP SCH ×2 (05:35→12:51)
[2018-05-30] MEDS: HYOSCYAMINE ORAL DROPS 1.875 MG/15 ML BOTTLE PO SCH ×2 (05:44→12:33)
[2018-05-30] MEDS: SIMETHICONE 40 MG/0.6 ML DROPS 2,000 MG/30 ML BOTTLE PO SCH ×2 (05:45→12:34)
[2018-05-30] MEDS: ONDANSETRON 4 MG/2 ML VIAL IVP SCH ×2 (05:47→12:51)
[2018-05-30 06:37] LABS: Cotinine <2.0 ng/mL (<2.0); Nicotine <2.0 ng/mL (<2.0)
[2018-05-30] MEDS ORDERED: MORPHINE SULFATE 4 MG/ML SYRINGE IVP PRN (07:24)
[2018-05-30] MEDS: ALBUTEROL NEBULIZED 2.5 MG/3 ML INHALATION SCH ×2 (07:41→11:11)
[2018-05-30 08:11] VITALS: BP 114/78; TEMP 98.5
[2018-05-30 09:10] LABS: Basophils % (A) 0 %; Eosinophils % (A) 0 %; Lymphocytes # (A) 3.4 k/uL (1.0-4.8); Lymphocytes % (A) 23 %; MCH 32.3 pg (25.0-35.0); MCHC 33.1 g/dL (31.0-37.0); MCV 97.4 fL (80.0-100.0); Mean Platelet Volume 7.3; Monocytes # (A) 0.8 k/uL (0-1.0); Monocytes % (A) 5 %; Neutrophils % (A) 69 %; Platelet Count 271 k/uL (150-450); RBC 2.26 m/uL (3.80-5.40); RDW 13.6 % (11.5-15.5); WBC 14.6 k/uL (3.8-10.6)
[2018-05-30 09:31] LABS: HGB 7.3 gm/dL (11.4-16.0)
[2018-05-30] MEDS: PANTOPRAZOLE 40 MG/10 ML VIAL IV SCH (09:35)
[2018-05-30] MEDS: SODIUM FERRIC GLUCONAT-SUCROSE 125 MG in SODIUM CHLORIDE 0.9% 100 ML IVPB SCH (09:50)
[2018-05-30 11:21] VITALS: PULSE 75
[2018-05-30 12:08] LABS: Basophils # (A) 0.1 k/uL (0-0.2); Basophils % (A) 0 %; Eosinophils % (A) 0 %; HCT 22.1 % (34.0-46.0); HGB 7.3 gm/dL (11.4-16.0); Lymphocytes # (A) 3.4 k/uL (1.0-4.8); Lymphocytes % (A) 24 %; MCH 32.6 pg (25.0-35.0); MCHC 33.3 g/dL (31.0-37.0); Mean Platelet Volume 8.7; Monocytes # (A) 0.7 k/uL (0-1.0); Monocytes % (A) 5 %; Neutrophils # (A) 9.6 k/uL (1.3-7.7); Neutrophils % (A) 68 %; Platelet Count 258 k/uL (150-450); RBC 2.25 m/uL (3.80-5.40); RDW 13.9 % (11.5-15.5); WBC 14.1 k/uL (3.8-10.6)
[2018-05-30] MEDS: 0.9% NACL WITH KCL 20 MEQ/L 1,000 ML IV SCH (12:51)
--- NOTE | 2018-05-30 13:41 | P.DS ---
Providers Date of admission: 05/27/18 09:05 Expected date of discharge: 05/30/18 Attending physician: Jahaira Yates Primary care physician: Jose Kaba - Discharge Diagnosis(es) (1) Morbid obesity with BMI of 50.0-59.9, adult Status: Acute (2) Gastric bypass status for obesity Status: Acute (3) Postoperative nausea and vomiting Status: Acute (4) Hematemesis with nausea Status: Acute (5) Dehydration Status: Acute (6) Hypertensive heart disease Status: Acute (7) Sleep apnea Status: Acute (8) Tobacco abuse, in remission Status: Acute (9) Osteoarthritis of knees, bilateral Status: Acute (10) Osteoarthritis of hips, bilateral Status: Acute (11) Iron deficiency anemia due to dietary causes Status: Acute (12) Acute blood loss anemia Status: Acute Hospital Course: POSTOPERATIVE DIAGNOSES: 1. Morbid obesity due to excess caloric intake. 2. Body mass index of 57.5. 3. Obstructive sleep apnea. 4. Osteoarthritis of lower back, due to morbid obesity. 5. Gastroesophageal reflux disease. 6. Vitamin D deficiency. 7. Hypercholesterolemia. 8. Hypertriglyceridemia. 9. Hypertensive heart disease 10. Glucose intolerance. 11. Fatty food intolerance 12. Dietary surveillance and counseling. 13. Vitamin A deficiency 14. Iron deficiency anemia. 15. Tobacco cessation and counseling. 16. 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 Hepatomegaly with fatty liver disease 18. Severe postoperative nausea and vomiting with hematemesis 19. Acute blood loss anemia 20. Dehydration 21. Hypomagnesia COURSE: Araceli Fabian is a 28-year-old female who presents with her highest weight of 380 pounds. At her height of 5 feet 8-1/4 inches, she was 380 pounds. Her body mass index was 57.5. [place] body weight is 163 pounds. TShel has undergone medical supervised weight loss. A second-generation bariatric consent form was described in detail including the possibility of protein malnutrition, leaks, gastrojejunal stricture, venous thrombosis, need for further surgery for which she demonstrated understanding. Benefits and risks of the procedure were described at length. Informed consent was obtained. Postprocedure, she had severe postoperative nausea and vomiting. As a result she had hematemesis. Moderate IV fluid hydration was performed. She developed acute blood loss anemia. She has history of iron deficiency anemia. Iron infusions were given. She reported feeling better after acute IV fluid hydration. She was passing flatus. She was tolerating liquids. With her anemia, blood transfusion was described however patient requested conservative management. Prior to discharge, she was stable. Her hemoglobin was stable. Procedures: OPERATION: 1. Robotic assisted da Tomas Xi laparoscopic [place]-en-Y gastric bypass, 100 cm antecolic antegastric [place] limb, with 25 mm EEA. 2. Intraoperative esophagogastrojejunoscopy. ANESTHESIA: GETA and local ESTIMATED BLOOD LOSS: 20 mL SPECIMENS REMOVED: None. COMPLICATIONS: NONE. Patient Condition at Discharge: Stable Plan - Discharge Summary Discharge Rx Participant: Yes New Discharge Prescriptions: New Bisacodyl [Dulcolax] 5 mg PO DAILY PRN #10 tablet. PRN Reason: Constipation HYDROcodone/APAP [[place] Elixir 7.5-325Mg/15Ml] 30 ml PO Q6H PRN #360 solution PRN Reason: Pain Ondansetron Odt [Zofran Odt] 4 mg PO Q8HR PRN #9 tab PRN Reason: Nausea Simethicone 40 mg/0.6 ml Drops [Mylicon Drops] 40 mg PO PCHS PRN #30 ml PRN Reason: Gas Omeprazole 40 mg PO DAILY #30 capsule. Discontinued Spironolactone [Aldactone] 50 mg PO DAILY No Action Omeprazole [PriLOSEC] 40 mg PO DAILY Discharge Medication List Omeprazole [PriLOSEC] 40 mg PO DAILY 02/08/18 [History] Bisacodyl [Dulcolax] 5 mg PO DAILY PRN #10 tablet. 05/30/18 [Rx] HYDROcodone/APAP [[place] Elixir 7.5-325Mg/15Ml] 30 ml PO Q6H PRN #360 solution [Rx] Omeprazole 40 mg PO DAILY #30 capsule. 05/30/18 [Rx] Ondansetron Odt [Zofran Odt] 4 mg PO Q8HR PRN #9 tab 05/30/18 [Rx] Simethicone 40 mg/0.6 ml Drops [Mylicon Drops] 40 mg PO PCHS PRN #30 ml [Rx] Follow up Appointment(s)/Referral(s): [facility] Center,. [NON-STAFF] - 05/31/18 10:00 am Patient Instructions/Handouts: Nutrition after Bariatric Surgery (GEN), [place]-en -Y Gastric Bypass (DC) Activity/Diet/Wound Care/Special Instructions: No lifting over 4 pounds in 4 weeks. May shower. No bath tub soaks. Discharge Disposition: HOME SELF-CARE
--- NOTE | 2018-05-30 13:41 | P.PN ---
Subjective Progress Note Date: 05/30/18 CHIEF COMPLAINT: Morbid obesity HISTORY OF PRESENT ILLNESS: Araceli Fabian is a 28-year-old female who is status post robotic gastric bypass 05/27/2018. She is passing flatus. No further reports of nausea and vomiting. She is eager to go home. Hemoglobin low and on repeat stable. She just started her menstrual cycle. She reports spraining her right thumb upon coming out of bed. PHYSICAL EXAM: GENERAL: Well-developed female in no acute distress. HEENT: No sclerae icterus. Extraocular movements grossly intact. Moist buccal pink mucosa. NECK: Supple without lymphadenopathy. CHEST: Nonlabored respirations, equal bilateral excursions. CARDIOVASCULAR: Tachycardic. 2+ radial pulses. ABDOMEN: Obese, soft, nontender. decreased abdominal distention. Dressing left upper quadrant improved. Minimal incisional tenderness left upper quadrant. MUSCULOSKELETAL: No clubbing, or cyanosis. NEURO: No focal or lateralizing signs. Cranial nerves II through XII grossly within normal limits. PSYCH: Appropriate affect. Alert and oriented to person, place and time. SKIN: Well perfused. Good skin turgor. ASSESSMENT: 1. Morbid obesity due to excess caloric intake. 2. Body mass index of 57.5. 3. Obstructive sleep apnea. 4. Osteoarthritis of lower back, due to morbid obesity. 5. Gastroesophageal reflux disease. 6. Vitamin D deficiency. 7. Hypercholesterolemia. 8. Hypertriglyceridemia. 9. Hypertensive heart disease 10. Glucose intolerance. 11. Fatty food intolerance 12. Dietary surveillance and counseling. 13. Vitamin A deficiency 14. Iron deficiency anemia. 15. Tobacco cessation and counseling. 16. Status post robotic gastric bypass 17. Dehydration PLAN: 1. She has resumption of bowel function 2. Discharge medications reviewed 3. Follow-up in the bariatric center tomorrow Objective - Vital Signs Vital signs: Vital Signs Temp 98.5 F 05/30/18 07:00 Pulse 75 05/30/18 11:20 Resp 16 05/30/18 07:00 BP 114/78 05/30/18 07:00 Pulse Ox 100 05/30/18 07:00 Intake & Output 05/29/18 05/30/18 05/30/18 18:59 06:59 18:59 Intake Total 825 900 Output Total 200 Balance 825 700 Intake: Intake, IV Titration 825 800 Amount 0.9% NaCl with KCl 20 Meq 500 800 /l 1,000 ml @ 100 mls/hr IV .Q10H [facility] Rx#: [id number] Ampicillin-Sulbactam 3 gm 200 In Sodium Chloride 0.9% 100 ml @ 200 mls/hr IVPB Q6HR [facility] Rx#:[id number] Sodium Ferric Gluconat- 125 Sucrose 125 mg In Sodium Chloride 0.9% 100 ml @ 100 mls/hr IVPB DAILY [facility] Rx#:[id number] Oral 100 Output: Emesis 200 Other: Voiding Method Toilet # Voids 1 450 - Labs CBC & Chem 7: 05/30/18 11:55 05/29/18 07:28 Labs: Abnormal Lab Results - Last 24 Hours (Table) 05/30/18 05/30/18 Range/Units 08:22 11:55 WBC 14.6 H 14.1 H (3.8-10.6) k/uL RBC 2.26 L 2.25 L (3.80-5.40) m/uL Hgb 7.3 L D 7.3 L (11.4-16.0) gm/dL Hct 22.0 L 22.1 L (34.0-46.0) % Neutrophils # 10.0 H 9.6 H (1.3-7.7) k/uL Assessment and Plan (1) Morbid obesity with BMI of 50.0-59.9, adult Current Visit: Yes Status: Acute Code(s): E66.01 - MORBID (SEVERE) OBESITY DUE TO EXCESS CALORIES; Z68.43 - BODY MASS INDEX (BMI) 50-59.9, ADULT SNOMED Code(s): 185988195 (2) Gastric bypass status for obesity Current Visit: Yes Status: Acute Code(s): Z98.84 - BARIATRIC SURGERY STATUS SNOMED Code(s): 158252676 (3) Postoperative nausea and vomiting Current Visit: Yes Status: Acute Code(s): R11.2 - NAUSEA WITH VOMITING, UNSPECIFIED; Z98.890 - OTHER SPECIFIED POSTPROCEDURAL STATES SNOMED Code(s): 3390247 (4) Hematemesis with nausea Current Visit: Yes Status: Acute Code(s): K92.0 - HEMATEMESIS SNOMED Code( s): 5852921 (5) Dehydration Current Visit: Yes Status: Acute Code(s): E86.0 - DEHYDRATION SNOMED Code( s): 97987230 (6) Hypertensive heart disease Current Visit: Yes Status: Acute Code(s): I11.9 - HYPERTENSIVE HEART DISEASE WITHOUT HEART FAILURE SNOMED Code(s): 86620217 (7) Sleep apnea Current Visit: Yes Status: Acute Code(s): G47.30 - SLEEP APNEA, UNSPECIFIED SNOMED Code(s): 81383793 (8) Tobacco abuse, in remission Current Visit: Yes Status: Acute Code(s): F17.201 - NICOTINE DEPENDENCE, UNSPECIFIED, IN REMISSION SNOMED Code(s): 219082588 (9) Osteoarthritis of knees, bilateral Current Visit: Yes Status: Acute Code(s): M17.0 - BILATERAL PRIMARY OSTEOARTHRITIS OF KNEE SNOMED Code(s): 814166969 (10) Osteoarthritis of hips, bilateral Current Visit: Yes Status: Acute Code(s): M16.0 - BILATERAL PRIMARY OSTEOARTHRITIS OF HIP SNOMED Code(s): 643802845 (11) Iron deficiency anemia due to dietary causes Current Visit: Yes Status: Acute Code(s): D50.8 - OTHER IRON DEFICIENCY ANEMIAS SNOMED Code(s): 784735520
== END 2018-05-30 15:20 | disposition home or self-care (01) | DRG 620 ==
LOC: 2ORMAIN 09:05 → 4SSUR 14:03
PROVIDERS: ADMIT Surgery Plastic and Reconstructive Surgery; ATTEND Surgery Plastic and Reconstructive Surgery
PROC: 0DJ08ZZ Inspection of Upper Intestinal Tract, Via Natural or Artificial Opening Endoscopic (ICD-10-PCS; 2018-05-27)
PROC: 8E0W8CZ Robotic Assisted Procedure of Trunk Region, Via Natural or Artificial Opening Endoscopic (ICD-10-PCS; 2018-05-27)
PROC: 0D164ZA Bypass Stomach to Jejunum, Percutaneous Endoscopic Approach (ICD-10-PCS; principal; 2018-05-27 11:40)
DX: E66.01 Morbid (severe) obesity due to excess calories (principal); D62 Acute posthemorrhagic anemia; K92.0 Hematemesis; Z68.43 Body mass index [BMI] 50.0-59.9, adult; E83.42 Hypomagnesemia; R16.0 Hepatomegaly, not elsewhere classified; I11.9 Hypertensive heart disease without heart failure; K76.0 Fatty (change of) liver, not elsewhere classified; T41.45XA Adverse effect of unspecified anesthetic, initial encounter; D50.8 Other iron deficiency anemias; D72.829 Elevated white blood cell count, unspecified; E11.9 Type 2 diabetes mellitus without complications; E28.2 Polycystic ovarian syndrome; N92.0 Excessive and frequent menstruation with regular cycle; E50.9 Vitamin A deficiency, unspecified; E55.9 Vitamin D deficiency, unspecified; E78.00 Pure hypercholesterolemia, unspecified; E78.1 Pure hyperglyceridemia; E86.0 Dehydration; G47.33 Obstructive sleep apnea (adult) (pediatric); K21.9 Gastro-esophageal reflux disease without esophagitis; M16.0 Bilateral primary osteoarthritis of hip; M17.0 Bilateral primary osteoarthritis of knee; M47.9 Spondylosis, unspecified; L68.0 Hirsutism; E78.5 Hyperlipidemia, unspecified; E74.39 Other disorders of intestinal carbohydrate absorption; F17.201 Nicotine dependence, unspecified, in remission; Z87.11 Personal history of peptic ulcer disease; Z83.3 Family history of diabetes mellitus; Z82.49 Family history of ischemic heart disease and other diseases of the circulatory system; Z83.79 Family history of other diseases of the digestive system; Z84.89 Family history of other specified conditions; Z79.3 Long term (current) use of hormonal contraceptives; Z79.899 Other long term (current) drug therapy; Y92.239 Unspecified place in hospital as the place of occurrence of the external cause
CPT/HCPCS: 80048; 80051; 80307; 80323; 81025; 82310; 82565; 82728; 83540; 83550; 83735; 84100; 84520; 85025; 86850; 86900; 86901; 94640; 94760; 94762

== ENCOUNTER → 2018-05-31 | Outpatient (CLI) | payer OTHER ==
[2018-05-31 11:33] VITALS: BP 134/65; PULSE 102; RESP 16; TEMP 98.6
[2018-05-31] MEDS: SODIUM CHLORIDE 0.9% 1,000 ML IV SCH ×2 (11:38→12:31)
[2018-05-31 11:51] LABS: Basophils % (A) 0 %; RDW 14.4 % (11.5-15.5)
[2018-05-31 11:58] LABS: Eosinophils # (A) 0.1 k/uL (0-0.7); Eosinophils % (A) 1 %; Lymphocytes # (A) 2.5 k/uL (1.0-4.8); Lymphocytes % (A) 24 %; MCH 32.7 pg (25.0-35.0); MCHC 33.8 g/dL (31.0-37.0); MCV 96.9 fL (80.0-100.0); Monocytes # (A) 0.5 k/uL (0-1.0); Monocytes % (A) 5 %; Neutrophils # (A) 7.1 k/uL (1.3-7.7); Neutrophils % (A) 68 %; Platelet Count 309 k/uL (150-450); RBC 2.05 m/uL (3.80-5.40); WBC 10.5 k/uL (3.8-10.6)
[2018-05-31 12:02] LABS: HGB 6.7 gm/dL (11.4-16.0)
[2018-05-31 12:03] LABS: ALT 49 U/L (9-52); AST 29 U/L (14-36); Albumin 2.8 g/dL (3.5-5.0); Alkaline Phosphatase 48 U/L (38-126); Anion Gap 5 mmol/L; Blood Urea Nitrogen 14 mg/dL (7-17); Calcium 8.3 mg/dL (8.4-10.2); Carbon Dioxide 28 mmol/L (22-30); Chloride 106 mmol/L (98-107); Glucose 88 mg/dL (74-99); Potassium 3.8 mmol/L (3.5-5.1); Sodium 139 mmol/L (137-145); Total Bilirubin 0.5 mg/dL (0.2-1.3); Total Protein 5.2 g/dL (6.3-8.2)
[2018-05-31 12:04] LABS: HCT 19.9 % (34.0-46.0)
--- NOTE | 2018-05-31 13:03 | P.PN ---
Subjective Progress Note Date: 05/31/18 DATE OF SERVICE: 05/31/18 CHIEF COMPLAINT: Status post gastric bypass HISTORY OF PRESENT ILLNESS: Araceli Fabian is a 28-year-old female status post gastric bypass 05/27/2018. She was just discharged yesterday. She is postop day 4. She reports starting her menstrual cycle with very heavy bleeding. She reports feeling weak. She reports having a headache. Her highest weight of 380 pounds. At her height of 5 feet 8-1/4 inches, she was 380 pounds. Her body mass index was 57.5. [place] body weight is 163 pounds. She comes in weighing 364 pounds. Lifetime weight loss 16 pounds. PHYSICAL EXAM: VITAL SIGNS: 5 foot 8-1/4, 364 pounds. Body mass index of 55.5 Temp 98.6 F 05/31/18 11:31 Pulse 102 H 05/31/18 11:31 Resp 16 05/31/18 11:31 BP 134/65 05/31/18 11:31 Pulse Ox GENERAL: Well-developed female in no acute distress. HEENT: No sclerae icterus. Extraocular movements grossly intact. Moist buccal pink mucosa. NECK: Supple without lymphadenopathy. CHEST: Nonlabored respirations, equal bilateral excursions. CARDIOVASCULAR: Tachycardic. 2+ radial pulses ABDOMEN: Obese, soft. Dressing discontinued. No cellulitis. Mild distention. Minimal incisional tenderness. MUSCULOSKELETAL: No clubbing, or cyanosis. NEURO: No focal or lateralizing signs. Cranial nerves II through XII grossly within normal limits. PSYCH: Appropriate affect. Alert and oriented to person, place and time. SKIN: Well perfused. Good skin turgor. ASSESSMENT: 1. Morbid obesity due to excess caloric intake. 2. Body mass index of 57.5 down to 55.5 3. Obstructive sleep apnea. 4. Osteoarthritis of lower back, due to morbid obesity. 5. Gastroesophageal reflux disease. 6. Vitamin D deficiency. 7. Hypercholesterolemia. 8. Hypertriglyceridemia. 9. Hypertensive heart disease 10. Glucose intolerance. 11. Fatty food intolerance 12. Dietary surveillance and counseling. 13. Vitamin A deficiency 14. Iron deficiency anemia. 15. Metromenorrhagia 16. Status post gastric bypass 17. Dehydration PLAN: 1. Recommend labs for history of anemia 2. Recommend IV infusion normal saline for dehydration. 3. Will need iron infusions to correct iron deficiency anemia. 4. Blood transfusions described however patient wishes to be treated as outpatient and alternative treatments be used as she declines blood transfusions Objective - Vital Signs Vital signs: Vital Signs Temp 98.6 F 05/31/18 11:31 Pulse 102 H 05/31/18 11:31 Resp 16 05/31/18 11:31 BP 134/65 05/31/18 11:31 Pulse Ox Intake & Output 05/30/18 05/31/18 05/31/18 18:59 06:59 18:59 Weight 165.516 kg - Labs CBC & Chem 7: 05/31/18 11:16 05/31/18 11:16 Labs: Abnormal Lab Results - Last 24 Hours (Table) 05/31/18 05/31/18 Range/Units 11:16 11:16 RBC 2.05 L (3.80-5.40) m/uL Hgb 6.7 L* (11.4-16.0) gm/dL Hct 19.9 L* (34.0-46.0) % Calcium 8.3 L (8.4-10.2) mg/dL Total Protein 5.2 L (6.3-8.2) g/dL Albumin 2.8 L (3.5-5.0) g/dL
[2018-05-31 14:54] VITALS: BMI 55.5
== END ==
LOC: BARWHC3 09:57
PROVIDERS: ATTEND Surgery Plastic and Reconstructive Surgery
DX: E86.0 Dehydration (principal)
CPT/HCPCS: 80053; 85025; 96360; 96361; 36415; G0463; 99211

== ENCOUNTER → 2018-06-03 | Outpatient (CLI) | payer OTHER ==
[2018-06-03 15:22] VITALS: BMI 53.0
[2018-06-03 16:06] VITALS: BP 123/94; PULSE 104; TEMP 98.6
--- NOTE | 2018-06-03 19:13 | P.PN ---
Subjective Progress Note Date: 06/03/18 Patient reports now having crampy abdominal pain with bowel movements which are still dark. She had slipped and fell on ice and hence she is sore all over. She is tolerating liquids. Overall oral intake is low. She reports improved fatigue. She presents for IV fluid hydration. Dressing discontinued. No signs of infection or cellulitis. Objective - Vital Signs Vital signs: Vital Signs Temp 98.6 F 06/03/18 16:04 Pulse 104 H 06/03/18 16:04 Resp BP 123/94 06/03/18 16:04 Pulse Ox Intake & Output 06/03/18 06/03/18 06/04/18 06:59 18:59 06:59 Weight 158.3 kg
== END | disposition home or self-care (01) ==
LOC: BARWHC3 14:30
PROVIDERS: ATTEND Surgery Plastic and Reconstructive Surgery
DX: E66.01 Morbid (severe) obesity due to excess calories (principal); Z68.43 Body mass index [BMI] 50.0-59.9, adult
CPT/HCPCS: 97802; G0463; 99211

== ENCOUNTER → 2018-06-05 | Outpatient (CLI) | payer OTHER ==
[2018-06-05 11:22] VITALS: BP 137/85; PULSE 90; TEMP 98.5; BMI 51.9
--- NOTE | 2018-07-10 15:25 | P.PN ---
Subjective Progress Note Date: 06/05/18 DATE OF SERVICE: 06/05/2018 CHIEF COMPLAINT: Status post gastric bypass HISTORY OF PRESENT ILLNESS: Araceli Fabian is a 28-year-old female status post gastric bypass 05/27/2018. She is postoperative day #9. She's had trouble with an and requires IV fluid hydration. Her energy is improving. Her highest weight of 380 pounds. At her height of 5 feet 8-1/4 inches, she was 380 pounds. Her body mass index was 57.5. [place] body weight is 163 pounds. She comes in weighing 343 pounds from 348 pounds, 2 days ago. She has lost 5 pounds in less than 1 week. Lifetime weight loss 37 pounds. Percent excess weight loss is 17%. PHYSICAL EXAM: VITAL SIGNS: 5 foot 8-1/4, 343 pounds. Body mass index of 51.9 Vital Signs Temp 98.5 F 06/05/18 10:41 Pulse 90 06/05/18 10:41 Resp BP 137/85 06/05/18 10:41 Pulse Ox GENERAL: Well-developed female in no acute distress. HEENT: No sclerae icterus. Extraocular movements grossly intact. Moist buccal pink mucosa. NECK: Supple without lymphadenopathy. CHEST: Nonlabored respirations, equal bilateral excursions. CARDIOVASCULAR: Regular rate and rhythm. 2+ radial pulses ABDOMEN: Soft, nondistended. No signs of infection or cellulitis. MUSCULOSKELETAL: No clubbing, or cyanosis. NEURO: No focal or lateralizing signs. Cranial nerves II through XII grossly within normal limits. PSYCH: Appropriate affect. Alert and oriented to person, place and time. SKIN: Well perfused. Good skin turgor. ASSESSMENT: 1. Morbid obesity due to excess caloric intake. 2. Body mass index of 57.5 down to 51.9 3. Obstructive sleep apnea. 4. Osteoarthritis of lower back, due to morbid obesity. 5. Gastroesophageal reflux disease. 6. Vitamin D deficiency. 7. Hypercholesterolemia. 8. Hypertriglyceridemia. 9. Hypertensive heart disease 10. Glucose intolerance. 11. Fatty food intolerance 12. Dietary surveillance and counseling. 13. Vitamin A deficiency 14. Iron deficiency anemia. 15. Metromenorrhagia 16. Status post gastric bypass 17. Dehydration PLAN: 1. Recommend IV fluid hydration 2. Recommend follow-up labs Objective - Vital Signs Vital signs: Vital Signs Temp 98.5 F 06/05/18 10:41 Pulse 90 06/05/18 10:41 Resp BP 137/85 06/05/18 10:41 Pulse Ox
== END ==
LOC: BARWHC3 09:53
PROVIDERS: ATTEND Surgery Plastic and Reconstructive Surgery
DX: Z53.9 Procedure and treatment not carried out, unspecified reason (principal)

== ENCOUNTER → 2018-06-19 | Outpatient (CLI) | payer OTHER ==
[2018-06-19 13:13] VITALS: BP 127/85; PULSE 90; RESP 16; TEMP 98; BMI 48.9
--- NOTE | 2018-06-19 13:16 | P.PN ---
Subjective Progress Note Date: 06/19/18 HPI: She reports walking from her home to the bariatric center. "I feel great." She is walking everyday at least 1 mile. She is taking her protein shakes and keeping up with her fluids. No abdominal pain. She feels happy. This is the smallest she has been in 5 years. ABDOMEN: No infections A/P: 1. She is almost 1 month out. Get labs today 2. Dietitian visit
== END | disposition home or self-care (01) ==
LOC: BARWHC3 12:32
PROVIDERS: ATTEND Surgery Plastic and Reconstructive Surgery
DX: E66.01 Morbid (severe) obesity due to excess calories (principal); Z68.42 Body mass index [BMI] 45.0-49.9, adult
CPT/HCPCS: 97803; G0463; 99211

== ENCOUNTER → 2018-06-22 | Outpatient (CLI) | payer OTHER ==
[2018-06-22 09:59] LABS: Partial Thromboplastin Time 27.6 sec (22.0-30.0); Prothrombin Time 10.3 sec (9.0-12.0)
[2018-06-22 10:25] LABS: HCT 39.3 % (34.0-46.0); Hypochromasia Moderate; MCH 31.7 pg (25.0-35.0); MCHC 30.4 g/dL (31.0-37.0); Macrocytosis Moderate; Mean Platelet Volume 7.4; Platelet Count 343 k/uL (150-450); RBC 3.77 m/uL (3.80-5.40); RDW 15.5 % (11.5-15.5); WBC 6.1 k/uL (3.8-10.6)
[2018-06-22 10:29] LABS: HGB 11.9 gm/dL (11.4-16.0); MCV 104.3 fL (80.0-100.0)
[2018-06-22 17:24] LABS: Parathyroid Hormone Intact 36.2 pg/mL (14.0-72.0)
[2018-06-22 17:48] LABS: Albumin 4.2 g/dL (3.80-4.90); Albumin/Globulin Ratio 2.1 (1.20-2.10); Calcium 9.7 mg/dL (8.7-10.3); LDL Cholesterol,Calculated 104.4 mg/dL (0.0-131.0); Magnesium 1.8 mg/dL (1.5-2.4); Phosphorus 3.7 mg/dL (2.4-5.1); Potassium 4.1 mmol/L (3.5-5.5); Total Bilirubin 0.4 mg/dL (0.3-1.2); Total Protein 6.2 g/dL (6.2-8.2); VLDL Calculation 27.6 mg/dL (5.00-40.00)
[2018-06-22 17:51] LABS: Iron Saturation 21.59 (12.00-45.00)
[2018-06-22 18:06] LABS: Folate, Serum 12.4 ng/mL
[2018-06-25 06:27] LABS: Vitamin B1 43 ug/L (38-122)
[2018-06-25 09:23] LABS: Zinc, Serum 91 ug/dL (60-130)
[2018-06-26 07:22] LABS: Vitamin A 24 ug/dL (38-106)
== END | disposition home or self-care (01) ==
LOC: LABWHC1 09:12
PROVIDERS: ATTEND Surgery Plastic and Reconstructive Surgery
DX: E66.01 Morbid (severe) obesity due to excess calories (principal); E21.1 Secondary hyperparathyroidism, not elsewhere classified; E89.1 Postprocedural hypoinsulinemia; D50.9 Iron deficiency anemia, unspecified; K90.9 Intestinal malabsorption, unspecified; E55.9 Vitamin D deficiency, unspecified; N19 Unspecified kidney failure; K50.90 Crohn's disease, unspecified, without complications; K76.9 Liver disease, unspecified
CPT/HCPCS: 36415; 80053; 80061; 82306; 82525; 82607; 82728; 82746; 83036; 83540; 83550; 83735; 83970; 84100; 84134; 84255; 84425; 84443; 84590; 84630; 85027; 85610; 85730

== ENCOUNTER → 2018-07-17 | Outpatient (CLI) | payer OTHER ==
--- NOTE | 2018-07-17 14:38 | P.PN ---
Subjective Progress Note Date: 07/17/18 DATE OF SERVICE: 07/17/2018 CHIEF COMPLAINT: Status post gastric bypass HISTORY OF PRESENT ILLNESS: Araceli Fabian is a 28-year-old female status post gastric bypass 05/27/2018. She is over 1 month out. She had acute nausea during the holidays that is still persistent. Nausea is exacerbated with textured foods. Her highest weight of 380 pounds. At her height of 5 feet 8-1/4 inches, she was 380 pounds. Her body mass index was 57.5. [place] body weight is 163 pounds. She comes in weighing 311 pounds from 324 pounds, 1 month ago. She has lost 12 pounds in 1 month. Lifetime weight loss 69 pounds. Percent excess weight loss is 32%. PHYSICAL EXAM: VITAL SIGNS: 5 foot 8-1/4, 311 pounds. Body mass index of 47.1 Vital Signs Temp 97.8 F 07/17/18 14:37 Pulse 88 07/17/18 14:37 Resp 16 07/17/18 14:37 BP 118/69 07/17/18 14:37 Pulse Ox GENERAL: Well-developed female in no acute distress. HEENT: No sclerae icterus. Extraocular movements grossly intact. Moist buccal pink mucosa. NECK: Supple without lymphadenopathy. CHEST: Nonlabored respirations, equal bilateral excursions. CARDIOVASCULAR: Regular rate and rhythm. 2+ radial pulses ABDOMEN: All healed. No infection. MUSCULOSKELETAL: No clubbing, or cyanosis. NEURO: No focal or lateralizing signs. Cranial nerves II through XII grossly within normal limits. PSYCH: Appropriate affect. Alert and oriented to person, place and time. SKIN: Well perfused. Good skin turgor. ASSESSMENT: 1. Morbid obesity due to excess caloric intake. 2. Body mass index of 57.5 down to 47.1 3. Obstructive sleep apnea. 4. Osteoarthritis of lower back, due to morbid obesity. 5. Gastroesophageal reflux disease. 6. Vitamin D deficiency. 7. Hypercholesterolemia. 8. Hypertriglyceridemia. 9. Hypertensive heart disease 10. Glucose intolerance. 11. Fatty food intolerance 12. Dietary surveillance and counseling. 13. Vitamin A deficiency 14. Iron deficiency anemia. 15. Metromenorrhagia 16. Status post gastric bypass PLAN: 1. She will continue with recovery 2. Plan for upper endoscopy for dysphagia 3. Overall, great weight loss. 4. Recommend bariatric labs Laboratory Last Values WBC 6.3 k/uL (3.8-10.6) 07/17/18 15:19 RBC 4.31 m/uL (3.80-5.40) 07/17/18 15:19 Hgb 14.1 gm/dL (11.4-16.0) 07/17/18 15:19 Hct 43.0 % (34.0-46.0) 07/17/18 15:19 MCV 99.6 fL (80.0-100.0) 07/17/18 15:19 MCH 32.7 pg (25.0-35.0) 07/17/18 15: MCHC 32.9 g/dL (31.0-37.0) 07/17/18 15: RDW 13.4 % (11.5-15.5) 07/17/18 15:19 Plt Count 254 k/uL (150-450) 07/17/18 15:19 PT 9.8 sec (9.0-12.0) 07/17/18 15:19 INR 0.9 (<1.2) 07/17/18 15:19 APTT 29.0 sec (22.0-30.0) 07/17/18 15:19 Sodium 141 mmol/L (135-145) 07/17/18 15:19 Potassium 4.2 mmol/L (3.5-5.5) 07/17/18 15:19 Chloride 105 mmol/L (96-109) 07/17/18 15:19 Carbon Dioxide 28.6 mmol/L (21.6-31.8) 07/17/18 15:19 Anion Gap 7.40 mmol/L (4.00-12.00) 07/17/18 15:19 BUN 17.0 mg/dL (9.0-27.0) 07/17/18 15:19 Creatinine 0.8 mg/dL (0.6-1.5) 07/17/18 15:19 Est GFR (CKD-EPI)AfAm 116.3 (60.0-200.0) 07/17/18 15:19 Est GFR (CKD-EPI)NonAf 100.3 (60.0-200.0) 07/17/18 15:19 BUN/Creatinine Ratio 21.25 Ratio (12.00-20.00) H 07/17/18 15:19 Glucose 88 mg/dL (70-110) 07/17/18 15:[address] Glu mg/dL 77 07/17/18 15:19 Hemoglobin A1c 4.3 % (4.0-6.0) 07/17/18 15:19 Calcium 9.7 mg/dL (8.7-10.3) 07/17/18 15:19 Phosphorus 3.7 mg/dL (2.4-5.1) 07/17/18 15:19 Magnesium 1.9 mg/dL (1.5-2.4) 07/17/18 15:19 Iron 46 ug/dL (50-170) L 07/17/18 15: TIBC 268 ug/dL (228-460) 07/17/18 15:19 Iron Saturation 17.16 (12.00-45.00) 07/17/18 15:19 Ferritin 108.6 ng/mL (10.0-291.0) 07/17/18 15:19 Total Bilirubin 0.3 mg/dL (0.3-1.2) 07/17/18 15:19 AST 27 U/L (13-35) 07/17/18 15:19 ALT 46 U/L (8-44) H 07/17/18 15:19 Alkaline Phosphatase 81 U/L (41-126) 07/17/18 15:19 Total Protein 6.5 g/dL (6.2-8.2) 07/17/18 15:19 Albumin 4.40 g/dL (3.80-4.90) 07/17/18 15:19 Globulin 2.1 g/dL (1.6-3.3) 07/17/18 15:19 Albumin/Globulin Ratio 2.10 g/dL (1.20-2.10) 07/17/18 15:19 Prealbumin 15.0 mg/dL (18.0-42.0) L 07/17/18 15:19 Triglycerides 149.0 mg/dL (0.0-149.0) 07/17/18 15:19 Cholesterol 202 mg/dL (0-200) H 07/17/18 15:19 LDL Cholesterol, Calc 133.2 mg/dL (0.0-131.0) H 07/17/18 15: VLDL Cholesterol, Calc 29.80 mg/dL (5.00-40.00) 07/17/18: HDL Cholesterol 39.0 mg/dL (40.0-60.0) L 07/17/18 15: Cholesterol/HDL Ratio 5.18 07/17/18 15: Vitamin A 35 ug/dL (38-106) L 07/17/18: Vitamin B1 62 ug/L (38-122) 07/17/18: Vitamin B12 679.0 pg/mL (200.0-944.0) 07/17/18: Vitamin D 25-Hydroxy 23.4 ng/mL (30.0-100.0) L 07/17/18: Folate 7.5 ng/mL 07/17/18: TSH 1.360 uIU/mL (0.350-5.500) 07/17/18: PTH Intact 27.4 pg/mL (14.0-72.0) 07/17/18: Copper 1376 ug/L (810-1990) 07/17/18: Selenium 156 mcg/L (63-160) 07/17/18: Zinc 100 ug/dL (60-130) 07/17/18: Iron is low ALT is high Pre-albumin is low Vitamin A is low Vitamin D is low Objective - Labs CBC & Chem 7: 07/17/18 15:19 07/17/18:
[2018-07-17 14:43] VITALS: BP 118/69; PULSE 88; RESP 16; TEMP 97.8; BMI 47.0
[2018-07-17 15:52] LABS: HGB 14.1 gm/dL (11.4-16.0); MCH 32.7 pg (25.0-35.0); MCHC 32.9 g/dL (31.0-37.0); MCV 99.6 fL (80.0-100.0); Mean Platelet Volume 7.8; Platelet Count 254 k/uL (150-450); RBC 4.31 m/uL (3.80-5.40); RDW 13.4 % (11.5-15.5); WBC 6.3 k/uL (3.8-10.6)
[2018-07-17 16:04] LABS: INR 0.9 (<1.2); Prothrombin Time 9.8 sec (9.0-12.0)
[2018-07-18 03:03] LABS: Iron Saturation 17.16 (12.00-45.00)
[2018-07-18 03:11] LABS: Vitamin D 25 Hydroxy 23.4 ng/mL (30.0-100.0)
[2018-07-18 03:12] LABS: Folate, Serum 7.5 ng/mL
[2018-07-18 03:13] LABS: Albumin 4.4 g/dL (3.80-4.90); Albumin/Globulin Ratio 2.1 (1.20-2.10); Anion Gap 7.4 mmol/L (4.00-12.00); Calcium 9.7 mg/dL (8.7-10.3); Carbon Dioxide 28.6 mmol/L (21.6-31.8); Globulin 2.1 g/dL (1.6-3.3); LDL Cholesterol,Calculated 133.2 mg/dL (0.0-131.0); Magnesium 1.9 mg/dL (1.5-2.4); Phosphorus 3.7 mg/dL (2.4-5.1); Potassium 4.2 mmol/L (3.5-5.5); Total Bilirubin 0.3 mg/dL (0.3-1.2); Total Protein 6.5 g/dL (6.2-8.2); VLDL Calculation 29.8 mg/dL (5.00-40.00)
[2018-07-18 03:20] LABS: Parathyroid Hormone Intact 27.4 pg/mL (14.0-72.0)
[2018-07-18 04:17] LABS: Hemoglobin A1C 4.3 % (4.0-6.0)
[2018-07-18 15:18] LABS: Vitamin A 35 ug/dL (38-106)
[2018-07-19 05:35] LABS: Vitamin B1 62 ug/L (38-122)
[2018-07-19 14:30] LABS: Zinc, Serum 100 ug/dL (60-130)
[2018-07-22 19:20] LABS: Selenium 156 mcg/L (63-160)
== END | disposition home or self-care (01) ==
LOC: BARWHC3 14:10
PROVIDERS: ATTEND Surgery Plastic and Reconstructive Surgery
DX: Z48.815 Encounter for surgical aftercare following surgery on the digestive system (principal); E66.01 Morbid (severe) obesity due to excess calories; G47.33 Obstructive sleep apnea (adult) (pediatric); K21.9 Gastro-esophageal reflux disease without esophagitis; E55.9 Vitamin D deficiency, unspecified; I11.9 Hypertensive heart disease without heart failure; D50.9 Iron deficiency anemia, unspecified; E78.00 Pure hypercholesterolemia, unspecified; E51.9 Thiamine deficiency, unspecified; E21.1 Secondary hyperparathyroidism, not elsewhere classified; E89.1 Postprocedural hypoinsulinemia; K90.9 Intestinal malabsorption, unspecified; K74.1 Hepatic sclerosis; N19 Unspecified kidney failure; K50.90 Crohn's disease, unspecified, without complications; E78.1 Pure hyperglyceridemia; K90.49 Malabsorption due to intolerance, not elsewhere classified; E50.9 Vitamin A deficiency, unspecified; N92.1 Excessive and frequent menstruation with irregular cycle; Z98.84 Bariatric surgery status; Z68.42 Body mass index [BMI] 45.0-49.9, adult
CPT/HCPCS: 84255; 84134; 84425; 80061; 80053; 82607; 82728; 82525; 82746; 83540; 83550; 83735; 84100; 84443; 84590; 84630; 85027; 85610; 85730; 82306; 83970; 83036; 36415; G0463; 99211

== ENCOUNTER 2018-08-15 09:46 | Day surgery (SDC) | payer OTHER ==
[2018-08-14 09:24] VITALS: BMI 46.2
--- NOTE | 2018-08-15 00:51 | P.GSHP ---
History of Present Illness H&P Date: 08/15/18 CHIEF COMPLAINT: GERD HISTORY OF PRESENT ILLNESS: The patient is a 28-year-old female who presents reports gastroesophageal reflux disease. Upper endoscopy was offered for further evaluation and management. PAST MEDICAL HISTORY: Please see list. PAST SURGICAL HISTORY: Please see list. MEDICATIONS: Please see list. ALLERGIES: Please see list. SOCIAL HISTORY: No illicit drug use FAMILY HISTORY: No reports of Crohn disease or ulcerative colitis. REVIEW OF ORGAN SYSTEMS: CONSTITUTIONAL: No reports of fevers or chills. GI: Denies any blood in stools or constipation. PHYSICAL EXAM: VITAL SIGNS: Stable GENERAL: Well-developed and pleasant in no acute distress. HEENT: No scleral icterus. Extraocular movements grossly intact. Moist buccal mucosa. NECK: Supple without lymphadenopathy. CHEST: Unlabored respirations. Equal bilateral excursions. CARDIOVASCULAR: Regular rate and rhythm. Distal 2+ pulses. ABDOMEN: Soft, nondistended. MUSCULOSKELETAL: No clubbing, cyanosis, or edema. ASSESSMENT: 1. Gastroesophageal reflux disease PLAN: 1. Recommend proceeding with an upper endoscopy Past Medical History Past Medical History: GERD/Reflux, Sleep Apnea/CPAP/BIPAP Additional Past Medical History / Comment(s): BACK PAIN, PCOS, MENSTRUAL PERIODS LENGTHY AND HEAVY, LOW IRON.,HIRSUTISM-(TAKES SPIRONOLACTONE FOR THIS). , STOMACH ULCERS ., HAS BROKEN TOOTH., SLEEP APNEA (NO MACHINE)., dysphagia w/ solids,. Anemia-iron infusions. History of Any Multi-Drug Resistant Organisms: None Reported Past Surgical History: Bariatric Surgery, Ear Surgery Additional Past Surgical History / Comment(s): TUBES IN EARS (CHILD), EGD, [place]- en-[place] (gastric bypass) 05/27/18 Past Anesthesia/Blood Transfusion Reactions: Postoperative Nausea & Vomiting ( PONV) Smoking Status: Former smoker - Past Family History Mother Family Medical History: Cancer, Myocardial Infarction ([place]), Pulmonary Embolus Additional Family Medical History / Comment(s): at age 45 from PE ( secondary to [place]) Father Family Medical History: Diabetes Mellitus Additional Family Medical History / Comment(s): at age 33 secondary to complications of DM; pt states her father had gangrene and osteomylitis. Gangrene led to sepsis and his . Medications and Allergies Home Medications Medication Instructions Recorded Confirmed Type Omeprazole [PriLOSEC] 40 mg PO DAILY 02/08/18 08/14/18 History Calcium Citrate 500 mg PO BID 07/18/18 08/14/18 History Multivitamin,Therapeutic [Thera] 1 each PO DAILY 07/18/18 08/14/18 History Sesser-3 Fatty Acids/Fish Oil 1 each PO DAILY 07/18/18 08/14/18 History [Sesser-3 Fish Oil 1,200 mg Sfgl] Allergies Allergy/AdvReac Type Severity Reaction Status Date / Time hydromorphone [From Dilaudid] AdvReac Nausea Verified 08/14/18 09:10
[~2018-08-15 09:46] MED LIST changes: -CHLORHEXIDINE GLUCONATE 15 ML CUP MUCOUS MEM ONE; -DEXAMETHASONE SOD PHOSPHATE 10 MG/ML 1 ML VIAL IV ONE; -ENOXAPARIN 40 MG/0.4 ML SYRINGE SQ STA; -MIDAZOLAM 2 MG/2 ML VIAL IV PRN; -ONDANSETRON 4 MG/2 ML VIAL IVP ONE; -PANTOPRAZOLE 40 MG/10 ML VIAL IV STA; -fentaNYL (PF) 50 MCG/ML 2 ML AMP IV PRN
[2018-08-15 10:08] VITALS: RESP 18; TEMP 97.8
[2018-08-15] MEDS ORDERED: LACTATED RINGERS 1,000 ML IV ONE ×2 (10:08)
[2018-08-15] MEDS ORDERED: LIDOCAINE 1% 20 ML VIAL (10MG/ML) FOR IV START INTRADERMA ONE (10:10)
[2018-08-15] MEDS: LACTATED RINGERS 1,000 ML IV SCH ×2 (11:31→12:49)
--- NOTE | 2018-08-15 13:08 | P.PCN ---
Date of Procedure: 08/15/18 Description of Procedure: PREOPERATIVE DIAGNOSIS: Dysphagia. Nausea with vomiting. Morbid obesity. POSTOPERATIVE DIAGNOSIS: Dysphagia. Nausea with vomiting. Morbid obesity. 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 SURGEON: Jahaira Yates MD ANESTHESIA: MAC. INDICATIONS: The patient is a 28-year-old female who presents with a history of dysphagia, gastric bypass including new-onset nausea and vomiting. Benefits and risks of the procedure were described. Informed consent was obtained. DESCRIPTION: The patient was brought into the endoscopy suite and laid in the left lateral decubitus position. After a timeout was confirmed, the procedure was initiated. An Olympus gastroscope was passed along the posterior oropharynx down to the distal esophagus where the squamocolumnar junction was unremarkable. The gastric pouch was entered. A gastrojejunal stricture of 9 mm was found as the adult gastroscope was 9.5 mm in size. A Corthera balloon dilator was placed through the scope. Final insufflation up to 15 mm was performed with a total of 2 minutes. The scope was advanced up to 60 cm from the incisors into the [place] limb. The mucosa of the gastrojejunal anastomosis was intact. No chronic gastrojejunal marginal ulcer was encountered. No full-thickness injury was encountered. The GI tract was desufflated. The patient tolerated the procedure well. FINDINGS: Stricture of approximately 9 mm encountered. Successful balloon dilatation to 15 mm. No chronic gastrojejunal marginal ulcer RECOMMENDATIONS: Diet as tolerated. Plan - Discharge Summary Discharge Rx Participant: No New Discharge Prescriptions: No Action Omeprazole [PriLOSEC] 40 mg PO DAILY Calcium Citrate 500 mg PO BID Multivitamin,Therapeutic [Thera] 1 each PO DAILY Hinkley-3 Fatty Acids/Fish Oil [Hinkley-3 Fish Oil 1,200 mg Sfgl] 1 each PO DAILY Discharge Medication List Omeprazole [PriLOSEC] 40 mg PO DAILY 02/08/18 [History] Calcium Citrate 500 mg PO BID 07/18/18 [History] Multivitamin,Therapeutic [Thera] 1 each PO DAILY 07/18/18 [History] Hinkley-3 Fatty Acids/Fish Oil [Hinkley-3 Fish Oil 1,200 mg Sfgl] 1 each PO DAILY [History] Patient Instructions/Handouts: *[facility] - (Anesthesia) Endoscopy Discharge Instructions, Upper Endoscopy (DC)
[2018-08-15 13:20] VITALS: BP 115/70; PULSE 70
== END 2018-08-15 13:25 | disposition home or self-care (01) ==
LOC: ORWHC2ENDO 09:46
PROVIDERS: ATTEND Surgery Plastic and Reconstructive Surgery
DX: K31.89 Other diseases of stomach and duodenum (principal); K21.9 Gastro-esophageal reflux disease without esophagitis; G47.30 Sleep apnea, unspecified; L68.0 Hirsutism; D64.9 Anemia, unspecified; E28.2 Polycystic ovarian syndrome; N93.8 Other specified abnormal uterine and vaginal bleeding; M54.9 Dorsalgia, unspecified; Z98.84 Bariatric surgery status; Z87.11 Personal history of peptic ulcer disease; E66.01 Morbid (severe) obesity due to excess calories; Z68.42 Body mass index [BMI] 45.0-49.9, adult; Z99.89 Dependence on other enabling machines and devices; Z79.899 Other long term (current) drug therapy; Z88.5 Allergy status to narcotic agent; Z87.891 Personal history of nicotine dependence
CPT/HCPCS: 81025; 43245; C1727

== ENCOUNTER → 2018-08-28 | Outpatient (CLI) | payer OTHER ==
--- NOTE | 2018-08-28 13:30 | P.PN ---
Subjective Progress Note Date: 08/28/18 HPI: Gastric bypass on 05/27/18. She is 3 months out. No one smoking around her. No belly pain. She met her goal and got under 300 pounds. She is not smoking. Highest weight 392 pounds. In 3 months, she had 60+ pounds. No troubles with skin. PLAN: 1. Need labs 2. Keep warm beverage 3. Exercise encouraged 4. She has food loss with sphagetti 5. Follow up in 3 months. 6. Went over labs with low Vitamin A 7. US gallbladder for right upper quadrant pain.
[2018-08-28 14:08] VITALS: BP 121/76; PULSE 76; TEMP 98; BMI 45.6
== END ==
LOC: BARWHC3 13:01
PROVIDERS: ATTEND Surgery Plastic and Reconstructive Surgery
DX: Z48.815 Encounter for surgical aftercare following surgery on the digestive system (principal); Z98.84 Bariatric surgery status; E66.01 Morbid (severe) obesity due to excess calories; Z68.42 Body mass index [BMI] 45.0-49.9, adult
CPT/HCPCS: 97803; G0463; 99211

== ENCOUNTER → 2018-12-04 | Outpatient (CLI) | payer OTHER ==
[2018-12-04 17:04] VITALS: BP 100/67; PULSE 82; RESP 16; TEMP 98.4; BMI 46.2
--- NOTE | 2018-12-04 17:48 | P.PN ---
Subjective Progress Note Date: 12/04/18 HPI: She is concerned for plateau as she is 6 months out. She is not journaling her foods. She has stopped exercising. No fevers or chills. She is not eating enough protein. ABDOMEN: Unremarkable ASSESSMENT: 1. Morbid obestiy 2. S/p gastric bypass PLAN: 1. Labs reviewed 2. Needs correction of her MVI 3. Food journal advised 4. Increased activity reviewed. Objective - Vital Signs Vital signs: Vital Signs Temp 98.4 F 12/04/18 17:00 Pulse 82 12/04/18 17:00 Resp 16 12/04/18 17:00 BP 100/67 12/04/18 17:00 Pulse Ox 98 12/04/18 17:00 Intake & Output 12/03/18 12/04/18 12/04/18 18:59 06:59 18:59 Weight 137.892 kg
== END | disposition home or self-care (01) ==
LOC: BARWHC3 16:17
PROVIDERS: ATTEND Surgery Plastic and Reconstructive Surgery
DX: E66.01 Morbid (severe) obesity due to excess calories (principal); Z98.84 Bariatric surgery status; Z68.42 Body mass index [BMI] 45.0-49.9, adult
CPT/HCPCS: 97803; G0463; 99211

== ENCOUNTER → 2019-01-01 | Outpatient (CLI) | payer OTHER ==
[2019-01-01 14:50] LABS: HCT 44.8 % (34.0-46.0); HGB 14.4 gm/dL (11.4-16.0); MCH 31.6 pg (25.0-35.0); MCHC 32.1 g/dL (31.0-37.0); MCV 98.3 fL (80.0-100.0); Mean Platelet Volume 7.2; Platelet Count 321 k/uL (150-450); RBC 4.55 m/uL (3.80-5.40); RDW 13.6 % (11.5-15.5); WBC 8.4 k/uL (3.8-10.6)
[2019-01-01 14:56] LABS: INR 0.9 (<1.2); Partial Thromboplastin Time 24.5 sec (22.0-30.0); Prothrombin Time 9.6 sec (9.0-12.0)
[2019-01-01 15:07] VITALS: BP 118/84; PULSE 73; TEMP 98.6; BMI 45.9
--- NOTE | 2019-01-01 15:38 | P.PN ---
Subjective Progress Note Date: 01/01/19 HPI: She has gallbladder attacks. She has headaches. She is overworking with exercise ABDOMEN: Tender at right upper quadrant ASSESSMENT: 1. Morbid obesity PLAN: 1. Recommend robotic cholecystectomy for cholecystitis 2. Bariatric labs Objective - Vital Signs Vital signs: Vital Signs Temp 98.6 F 01/01/19 14:59 Pulse 73 01/01/19 14:59 Resp BP 118/84 01/01/19 14:59 Pulse Ox Intake & Output 12/31/18 01/01/19 01/01/19 18:59 06:59 18:59 Weight 136.985 kg - Labs CBC & Chem 7: 01/01/19 14:20
[2019-01-01 18:59] LABS: Parathyroid Hormone Intact 54.5 pg/mL (14.0-72.0)
[2019-01-01 19:22] LABS: Hemoglobin A1C 5.1 % (4.0-6.0)
[2019-01-01 19:33] LABS: Iron Saturation 32.81 (12.00-45.00)
[2019-01-01 19:35] LABS: African American GFR (CKD) 79.1 (60.0-200.0); Albumin 3.6 g/dL (3.80-4.90); Anion Gap 7.8 mmol/L (4.00-12.00); BUN/Creat Ratio 11.82 Ratio (12.00-20.00); Carbon Dioxide 28.2 mmol/L (21.6-31.8); Globulin 1.8 g/dL (1.6-3.3); LDL Cholesterol,Calculated 114.8 mg/dL (0.0-131.0); Magnesium 1.7 mg/dL (1.5-2.4); Phosphorus 3.7 mg/dL (2.4-5.1); Total Bilirubin 0.4 mg/dL (0.3-1.2); Total Protein 5.4 g/dL (6.2-8.2); VLDL Calculation 24.2 mg/dL (5.00-40.00)
[2019-01-01 19:42] LABS: Folate, Serum 9.3 ng/mL; Vitamin D 25 Hydroxy 20.3 ng/mL (30.0-100.0)
[2019-01-02 12:44] LABS: Zinc, Serum 50 ug/dL (60-130)
[2019-01-02 15:05] LABS: Vit B1(Thiamine) 92 ug/L (38-122)
[2019-01-03 07:25] LABS: Vitamin A 37 ug/dL (38-106)
== END | disposition home or self-care (01) ==
LOC: BARWHC3 14:01
PROVIDERS: ATTEND Surgery Plastic and Reconstructive Surgery
DX: E66.01 Morbid (severe) obesity due to excess calories (principal); R10.811 Right upper quadrant abdominal tenderness; Z68.42 Body mass index [BMI] 45.0-49.9, adult
CPT/HCPCS: 84255; 84134; 84425; 80061; 80053; 82607; 82728; 82525; 82746; 83540; 83550; 83735; 84100; 84443; 84590; 84630; 85027; 85610; 85730; 82306; 83970; 83036; G0463; 99211

== ENCOUNTER → 2019-01-01 | Outpatient (CLI) | payer OTHER | END | disposition home or self-care (01) | LOC: LABWHC1 14:03 | PROVIDERS: ATTEND Surgery Plastic and Reconstructive Surgery | DX: Z53.9 Procedure and treatment not carried out, unspecified reason (principal) ==

== ENCOUNTER 2019-01-09 09:23 | Day surgery (SDC) | payer OTHER ==
[2019-01-07 11:01] VITALS: BMI 45.9
--- NOTE | 2019-01-09 07:30 | P.GSHP ---
History of Present Illness H&P Date: 01/09/19 CHIEF COMPLAINT: Cholecystitis HISTORY OF PRESENT ILLNESS: The patient is a 28-year-old female who presents with history of epigastric including right upper quadrant abdominal pain. She underwent diagnostic studies for her gallbladder. Separately her clinical picture was consistent with cholecystitis. Now she presents for surgical intervention. PAST MEDICAL HISTORY: Please see list PAST SURGICAL HISTORY: Please see list MEDICATIONS: Please see list ALLERGIES: Denies. SOCIAL HISTORY: No illicit drug use or recent tobacco use FAMILY HISTORY: Pertinent for gallbladder disease REVIEW OF ORGAN SYSTEMS: CONSTITUTIONAL: No reports of fevers or chills. HEENT: Denies any troubles with the vision or hearing. ENDOCRINE: No reports of hypothyroidism. No diabetes. RESPIRATORY: No recent pneumonias. CARDIOVASCULAR: Denies chest pain or palpitations GI: No blood in stools or constipation. MUSCULOSKELETAL: Has occasional joint pain including back pain. NEURO: No seizure disorders or headaches. No recent stroke. PSYCH: No depression or suicidal ideation. GENITOURINARY: No active blood in urine. No urinary hesitancy. HEMATOLOGIC: No personal or family history of DVTs or pulmonary emboli. SKIN: No skin cancer. PHYSICAL EXAM: VITAL SIGNS: Afebrile vital signs stable GENERAL: Well-developed pleasant in no acute distress. HEENT: No scleral icterus. Extraocular movements grossly intact. Moist buccal mucosa. NECK: Supple without lymphadenopathy. CHEST: Unlabored respirations. Equal bilateral excursions. CARDIOVASCULAR: Regular rate regular rhythm rhythm. Distal 2+ pulses. ABDOMEN: Soft, nondistended. Tender along the epigastrium and right upper quadrant. MUSCULOSKELETAL: No clubbing, cyanosis, or edema. NEURO: Cranial nerves II to XII within normal limits. No focal or lateralizing signs. PSYCH: Alert and oriented to person, place and time. SKIN: Well-perfused good skin turgor. ASSESSMENT: 1. Epigastric and right upper quadrant abdominal pain 2. Chronic cholecystitis 3. Symptomatic gallstones. PLAN: 1. Will need a robotic cholecystectomy possible open. Benefits and risks were described. 2. Heparin for DVT prophylaxis 5000 units. 3. Antibiotic prophylaxis. Past Medical History Past Medical History: GERD/Reflux, Sleep Apnea/CPAP/BIPAP Additional Past Medical History / Comment(s): BACK PAIN, PCOS, MENSTRUAL PERIODS LENGTHY/HEAVY/IRREG, LOW IRON. HIRSUTISM -(WAS ON SPIRONOLACTONE FOR THIS). STOMACH ULCERS. HAS BROKEN TOOTH. SLEEP APNEA (NO MACHINE). Anemia-hx iron infusions. History of Any Multi-Drug Resistant Organisms: None Reported Past Surgical History: Bariatric Surgery, Ear Surgery Additional Past Surgical History / Comment(s): TUBES IN EARS (CHILD), EGD, [place] (gastric bypass) 05/27/18; EGD W/ DILATATION 08/15/18. Past Anesthesia/Blood Transfusion Reactions: Postoperative Nausea & Vomiting (PONV) Smoking Status: Former smoker - Past Family History Mother Family Medical History: Cancer, Myocardial Infarction ([place]), Pulmonary Embolus Additional Family Medical History / Comment(s): at age 45 from PE (secondary to [place]) Father Family Medical History: Diabetes Mellitus Additional Family Medical History / Comment(s): at age 33 secondary to complications of DM; pt states her father had gangrene and osteomylitis. Gangrene led to sepsis and his . Medications and Allergies Home Medications Medication Instructions Recorded Confirmed Type Omeprazole [PriLOSEC] 40 mg PO DAILY 02/08/18 01/07/19 History Calcium Citrate 500 mg PO BID 07/18/18 01/07/19 History Multivitamin,Therapeutic [Thera] 1 each PO DAILY 07/18/18 01/07/19 History Ibuprofen [Motrin Ib] 200 mg PO Q6H PRN 01/07/19 01/07/19 History Iron (Unknown Dose) 1 tab PO MOTH 01/07/19 History Allergies Allergy/AdvReac Type Severity Reaction Status Date / Time hydromorphone [From Dilaudid] AdvReac Nausea Verified 01/07/19 10:39
[~2019-01-09 09:23] MED LIST changes: +DEXAMETHASONE SOD PHOSPHATE 10 MG/ML 1 ML VIAL IV ONE; +HEPARIN SODIUM,PORCINE 5,000 UNIT/ML 1 ML VIAL SQ STA; +INDOCYANINE GREEN 25 MG VIAL IV STA; +KETOROLAC 30 MG/ML 1 ML VIAL IVP SCH; +LACTATED RINGERS 1,000 ML IV SCH; +MORPHINE SULFATE 2 MG/ML SYRINGE IV PRN; +ONDANSETRON 4 MG/2 ML VIAL IVP ONE; +ONDANSETRON 4 MG/2 ML VIAL IVP PRN; +SCOPOLAMINE 1.5MG/72HR PATCH TRANSDERM ONE; +ceFAZolin 3 GM in SODIUM CHLORIDE 0.9% 100 ML IVPB ONE
[2019-01-09] MEDS: LACTATED RINGERS 1,000 ML IV SCH ×2 (09:59→10:28)
[2019-01-09] MEDS ORDERED: LIDOCAINE 1%-EPI 1:100,000 20 ML VIAL SQ ONE (10:17)
[2019-01-09] MEDS ORDERED: LIDOCAINE 1% INJ 10MG/ML (20 ML MDV) ONE (10:25)
[2019-01-09] MEDS ORDERED: GLYCOPYRROLATE 0.2 MG/ML 2 ML VIAL ONE (10:25)
[2019-01-09] MEDS ORDERED: fentaNYL (PF) 50 MCG/ML 2 ML AMP ONE (10:25)
[2019-01-09] MEDS ORDERED: PROPOFOL 10 MG/ML 20 ML VIAL IV ONE (10:25)
[2019-01-09] MEDS ORDERED: MEPERIDINE 50 MG/ML SYRINGE ONE (10:25)
[2019-01-09] MEDS ORDERED: NEOSTIGMINE 1 MG/ML 10 ML VIAL ONE (10:25)
[2019-01-09] MEDS ORDERED: INDOCYANINE GREEN 25 MG VIAL IV ONE (10:25)
[2019-01-09] MEDS ORDERED: MIDAZOLAM 2 MG/2 ML VIAL ONE (10:25)
[2019-01-09] MEDS ORDERED: ROCURONIUM BROMIDE 10 MG/ML 10 ML VIAL IV ONE (10:25)
[2019-01-09 12:11] VITALS: TEMP 97.6
[2019-01-09] MEDS ORDERED: LACTATED RINGERS 1,000 ML IV ONE (12:13)
[2019-01-09] MEDS ORDERED: KETOROLAC 30 MG/ML 1 ML VIAL IVP ONE (12:30)
--- NOTE | 2019-01-09 12:51 | P.OP ---
Date of Procedure: 01/09/19 Description of Procedure: SURGEON: JAHAIRA YATES MD PREOPERATIVE DIAGNOSES: 1. Right upper quadrant abdominal pain 2. Chronic cholecystitis 3. Morbid obesity due to excess calories, BMI 45.9 POSTOPERATIVE DIAGNOSES: 1. Right upper quadrant abdominal pain 2. Chronic cholecystitis 3. Morbid obesity due to excess calories, BMI 45.9 4. Hepatomegaly 5. Gallstones OPERATION: Robotic-assisted da Tomas Xi laparoscopic cholecystectomy, multiport with FIREFLY ESTIMATED BLOOD LOSS: 5 mL. SPECIMENS REMOVED: Gallbladder. COMPLICATIONS: None. OPERATIVE FINDINGS: 1. Chronic cholecystitis with gallstones 2. Moderate hepatomegaly adding complexity to the case. 3. Console time 23 minutes INDICATIONS: The patient is a 28-year-old female who presents with right upper quadrant pain and cholelcystitis. Surgical intervention with a laparoscopic cholecystectomy was described at length including injury to the biliary tree, bleeding, infection, need for further surgery. Informed consent was obtained. Robotic assisted laparoscopic approach was described. Benefits and risks of the procedure including but not limited to bleeding, infection, injury to the biliary tree was described. Informed consent was obtained. DESCRIPTION OF PROCEDURE: Patient was brought to the operating room, placed in supine position. After general induction, the abdomen had been prepped and draped in standard sterile fashion. The robotic da Tomas XI system was primed. After a timeout protocol was performed, the patient had been prepped and draped in standard sterile fashion. The patient was injected with indocyanine green. A 5 mm 0 degrees laparoscopic trocar entry was performed along the left upper quadrant. The abdomen insufflated to 15 mmHg pressure which was tolerated well. Diagnostic laparoscopy demonstrated no injury to bowel viscera or mesentery. The liver surface was unremarkable. Next, two 8 mm robotic ports were placed along the right upper abdomen. The camera 8-mm port was maintained along the epigastrium. Another 8 mm port was placed along the left upper abdominal wall after exchanging the 5 mm port. Please note that the ports were placed at least 10 to 15 cm away from the target anatomy of the gallbladder. The robot was docked along the left lateral abdomen. The patient was repositioned in reverse Trendelenburg position. Using a grasper for arm 3, a grasper for arm 4, including hook cautery for arm 1, the robotic system was docked and primed as described. Instruments were interchanged by the pediatric assistant including hook cautery, Bovie cautery and clip appliers. I had sat at the console. The liver was moderately enlarged with findings of moderate hepatomegaly adding complexity to the case. The gallbladder fundus was retracted over the dome of the liver. Initial attention was brought to the infundibulum which was gently retracted in the inferior lateral approach. Using a grasper, the cystic duct including the cystic artery was carefully skeletonized. FIREFLY was used to identify the cystic artery and cystic structures. Large PLASTIC clips were used throughout the entire case. Using a clip tilting head band sawyer 2 clips were placed proximally, and 1 clip was placed distally along the cystic duct and then cauterized with the cautery. Again care was taken to avoid any injury to the biliary tree as the common bile duct was clearly visualized during this portion of dissection. Next, the cystic artery was similarly clipped and cauterized. Electro-Bovie cautery was used to remove the gallbladder from the hepatic fossa. Hemostasis was checked and found to be adequate. The robot was undocked. I re-scrubbed into the case. Using a 10 mm Endo Catch bag via the left upper quadrant incision, the specimen was removed from the abdominal cavity. All pneumoperitoneum instruments were evacuated from the abdominal cavity. The incisions were reapproximated using 4-0 Monocryl in an interrupted subcuticular fashion. Fascial defects were less than 8 mm in size. Please note along the trocar sites, local anesthetic was placed as a field block prior to insertion of all instruments. Liquid glue was applied to the skin. At the end of the procedure needle, sponge, and instrument count had been verified correct by the sales service technician. The patient was transferred to postanesthesia care unit in stable condition. Intraoperative films were shared with the patient's family who were very pleased with the level of care. Plan - Discharge Summary Discharge Rx Participant: Yes New Discharge Prescriptions: New Bisacodyl [Dulcolax] 5 mg PO DAILY PRN #10 tablet. PRN Reason: Constipation Simethicone 40 mg/0.6 ml Drops [Mylicon Drops] 40 mg PO PCHS PRN #30 ml PRN Reason: Gas Acetaminophen [Tylenol] 325 mg PO Q4H #30 tab Ondansetron Odt [Zofran Odt] 4 mg PO Q8HR PRN #9 tab PRN Reason: Nausea Discontinued Ibuprofen [Motrin Ib] 200 mg PO Q6H PRN PRN Reason: Pain No Action Omeprazole [PriLOSEC] 40 mg PO DAILY Calcium Citrate 500 mg PO BID Multivitamin,Therapeutic [Thera] 1 each PO DAILY Iron (Unknown Dose) 1 tab PO MOTH Discharge Medication List Omeprazole [PriLOSEC] 40 mg PO DAILY 02/08/18 [History] Calcium Citrate 500 mg PO BID 07/18/18 [History] Multivitamin,Therapeutic [Thera] 1 each PO DAILY 07/18/18 [History] Iron (Unknown Dose) 1 tab PO MOTH 01/07/19 [History] Acetaminophen [Tylenol] 325 mg PO Q4H #30 tab 01/09/19 [Rx] Bisacodyl [Dulcolax] 5 mg PO DAILY PRN #10 tablet. 01/09/19 [Rx] Ondansetron Odt [Zofran Odt] 4 mg PO Q8HR PRN #9 tab 01/09/19 [Rx] Simethicone 40 mg/0.6 ml Drops [Mylicon Drops] 40 mg PO PCHS PRN #30 ml 01/09/19 [Rx] Follow up Appointment(s)/Referral(s): Jahaira Yates MD [STAFF PHYSICIAN] - 01/22/19 Patient Instructions/Handouts: Laparoscopic Cholecystectomy (DC), Low Fat Diet (DC) Activity/Diet/Wound Care/Special Instructions: Low fat diet for 3 days, January 12. May shower. No bathtub soaks until January 16. No lifting over 10 pounds until January 16 Discharge Disposition: HOME SELF-CARE
[2019-01-09] MEDS ORDERED: ACETAMINOPHEN TAB 325 MG TAB PO ONE (13:15)
[2019-01-09 13:36] VITALS: BP 109/74; PULSE 70; RESP 16
== END 2019-01-09 13:36 | disposition home or self-care (01) ==
LOC: OR 09:23
PROVIDERS: ATTEND Surgery Plastic and Reconstructive Surgery
DX: K80.10 Calculus of gallbladder with chronic cholecystitis without obstruction (principal); E66.01 Morbid (severe) obesity due to excess calories; Z68.42 Body mass index [BMI] 45.0-49.9, adult; R16.0 Hepatomegaly, not elsewhere classified; K21.9 Gastro-esophageal reflux disease without esophagitis; G47.33 Obstructive sleep apnea (adult) (pediatric); E28.2 Polycystic ovarian syndrome; D64.9 Anemia, unspecified; Z99.89 Dependence on other enabling machines and devices; Z98.84 Bariatric surgery status; Z79.899 Other long term (current) drug therapy; Z88.5 Allergy status to narcotic agent; Z87.891 Personal history of nicotine dependence; Z80.9 Family history of malignant neoplasm, unspecified; Z82.49 Family history of ischemic heart disease and other diseases of the circulatory system; Z83.2 Family history of diseases of the blood and blood-forming organs and certain disorders involving the immune mechanism; Z83.3 Family history of diabetes mellitus
CPT/HCPCS: 47562; 81025; 88304; J2250; J1644; J1100; J2710; J2175; J2405; J2001; J3010; J1885; J2704

== ENCOUNTER 2019-01-10 12:30 | Emergency (ER) | payer OTHER ==
[2019-01-10 12:48] VITALS: RESP 18
[2019-01-10] MEDS ORDERED: SODIUM CHLORIDE 0.9% 1,000 ML IV STA ×2 (13:39)
[2019-01-10 14:21] LABS: Basophils % (A) 0 %; Eosinophils # (A) 0.1 k/uL (0-0.7); Eosinophils % (A) 1 %; HCT 42.7 % (34.0-46.0); HGB 13.8 gm/dL (11.4-16.0); Lymphocytes # (A) 2.3 k/uL (1.0-4.8); Lymphocytes % (A) 17 %; MCH 31.2 pg (25.0-35.0); MCHC 32.3 g/dL (31.0-37.0); MCV 96.7 fL (80.0-100.0); Mean Platelet Volume 6.9; Monocytes # (A) 0.7 k/uL (0-1.0); Monocytes % (A) 5 %; Neutrophils # (A) 10.4 k/uL (1.3-7.7); Neutrophils % (A) 76 %; Platelet Count 316 k/uL (150-450); RBC 4.42 m/uL (3.80-5.40); RDW 12.7 % (11.5-15.5); WBC 13.7 k/uL (3.8-10.6)
[2019-01-10 14:26] LABS: ALT 38 U/L (9-52); AST 32 U/L (14-36); African American GFR (CKD) >90 (>60 ml/min/1.73 sqM); Albumin 3.7 g/dL (3.5-5.0); Alkaline Phosphatase 69 U/L (38-126); Amylase 39 U/L (30-110); Anion Gap 7 mmol/L; Blood Urea Nitrogen 19 mg/dL (7-17); Calcium 9.3 mg/dL (8.4-10.2); Carbon Dioxide 25 mmol/L (22-30); Chloride 108 mmol/L (98-107); Glucose 95 mg/dL (74-99); INR 0.9 (<1.2); Lipase 105 U/L (23-300); Partial Thromboplastin Time 23.3 sec (22.0-30.0); Potassium 4.1 mmol/L (3.5-5.1); Prothrombin Time 9.4 sec (9.0-12.0); Sodium 140 mmol/L (137-145); Total Bilirubin 0.5 mg/dL (0.2-1.3); Total Protein 6.1 g/dL (6.3-8.2)
--- NOTE | 2019-01-10 14:32 | ED ---
General Adult HPI - General Chief complaint: Extremity Problem,Nontraumatic Stated complaint: Post op pain Time Seen by Provider: 01/10/19 13:05 Source: patient, RN notes reviewed, old records reviewed Mode of arrival: ambulatory Limitations: no limitations - History of Present Illness Initial comments: 20-year-old female presents return today one day post cholecystectomy with complaints of right-sided abdominal pain, some neck pain and concern for sh ortness breath. Patient states that she does have family history of PEs concerned that could be related to her symptoms. She denies any significant shortness of breath. Patient states that she has had no recent fevers or chills. She was discharged on the same day as her surgery yesterday. - Related Data Home Medications Medication Instructions Recorded Confirmed Omeprazole [PriLOSEC] 40 mg PO DAILY 02/08/18 01/09/19 Calcium Citrate 500 mg PO BID 07/18/18 01/07/19 Multivitamin,Therapeutic [Thera] 1 each PO DAILY 07/18/18 01/07/19 Iron (Unknown Dose) 1 tab PO MOTH 01/07/19 Previous Rx's Medication Instructions Recorded Acetaminophen [Tylenol] 325 mg PO Q4H #30 tab 01/09/19 Bisacodyl [Dulcolax] 5 mg PO DAILY PRN #10 tablet. 01/09/19 Ondansetron Odt [Zofran Odt] 4 mg PO Q8HR PRN #9 tab 01/09/19 Simethicone 40 mg/0.6 ml Drops 40 mg PO PCHS PRN #30 ml 01/09/19 [Mylicon Drops] Allergies Allergy/AdvReac Type Severity Reaction Status Date / Time hydromorphone [From Dilaudid] AdvReac Nausea Verified 01/10/19 12:48 Review of Systems ROS Statement: Those systems with pertinent positive or pertinent negative responses have been documented in the HPI. ROS Other: All systems not noted in ROS Statement are negative. Past Medical History Past Medical History: GERD/Reflux, Sleep Apnea/CPAP/BIPAP Additional Past Medical History / Comment(s): BACK PAIN, PCOS, MENSTRUAL PERIODS LENGTHY/HEAVY/IRREG, LOW IRON. HIRSUTISM -(WAS ON SPIRONOLACTONE FOR THIS). STOMACH ULCERS. HAS BROKEN TOOTH. SLEEP APNEA (NO MACHINE). Anemia-hx iron infu sions. History of Any Multi-Drug Resistant Organisms: None Reported Past Surgical History: Bariatric Surgery, Cholecystectomy, Ear Surgery Additional Past Surgical History / Comment(s): TUBES IN EARS (CHILD), EGD, [place] (gastric bypass) 05/27/18; EGD W/ DILATATION 08/15/18. Past Anesthesia/Blood Transfusion Reactions: Postoperative Nausea & Vomiting (PONV) Past Psychological History: Anxiety, Depression Smoking Status: Former smoker Past Alcohol Use History: None Reported Past Drug Use History: Marijuana - Past Family History Mother Family Medical History: Cancer, Myocardial Infarction ([place]), Pulmonary Embolus Additional Family Medical History / Comment(s): at age 45 from PE (secondary to [place]) Father Family Medical History: Diabetes Mellitus Additional Family Medical History / Comment(s): at age 33 secondary to complications of DM; pt states her father had gangrene and osteomylitis. Gangrene led to sepsis and his . General Exam - General Exam Comments Initial Comments: Alert and oriented 28-year-old female. No distress. Limitations: no limitations General appearance: alert, in no apparent distress Head exam: Present: atraumatic, normocephalic, normal inspection Eye exam: Present: normal appearance, PERRL, EOMI. Absent: scleral icterus, conjunctival injection, periorbital swelling ENT exam: Present: normal exam, mucous membranes moist Neck exam: Present: normal inspection. Absent: tenderness, meningismus, lymphadenopathy Respiratory exam: Present: normal lung sounds bilaterally. Absent: respiratory distress, wheezes, rales, rhonchi, stridor Cardiovascular Exam: Present: regular rate, normal rhythm, normal heart sounds. Absent: systolic murmur, diastolic murmur, rubs, gallop, clicks GI/Abdominal exam: Present: soft, normal bowel sounds, other (Well-appearing incision sites over abdomen.). Absent: distended, tenderness, guarding, rebound, rigid Extremities exam: Present: normal inspection, full ROM, normal capillary refill. Absent: tenderness, pedal edema, joint swelling, calf tenderness Back exam: Present: normal inspection Neurological exam: Present: alert, oriented X3, CN II-XII intact Psychiatric exam: Present: normal affect, normal mood Skin exam: Present: warm, dry, intact, normal color. Absent: rash Course Vital Signs 01/10/19 12:45 Temperature 98.2 F Pulse Rate 71 Respiratory 18 Rate Blood Pressure 139/79 O2 Sat by Pulse 97 Oximetry Medical Decision Making - Medical Decision Making This is a 28-year-old female presents today for evaluation for right-sided abdominal pain and chest pain and neck pain. This was one day post cholecystectomy. [facility] She also concern for possible bleed PE. Patient received IV fluid monitoring. Blood work was reviewed and unremarkable. CT chest angiogram was completed for PE and is negative. CT on pelvis is evidence of minimal stranding around gallbladder fossa. No other significant inflammatory changes. Patient was evaluated by her surgeon Dr. Pereira at bedside. Recommended discharge home with close follow- up. Discussed her neck pain is likely related to neck strain from sleeping abnormally. Patient agrees treatment plan will comply. - Lab Data Result diagrams: 01/10/19 14:02 01/10/19 14:02 Lab Results 01/10/19 01/10/19 01/10/19 Range/Units 14:02 14:02 14:02 WBC 13.7 H (3.8-10.6) k/uL RBC 4.42 (3.80-5.40) m/uL Hgb 13.8 (11.4-16.0) gm/dL Hct 42.7 (34.0-46.0) % MCV 96.7 (80.0-100.0) fL MCH 31.2 (25.0-35.0) pg MCHC 32.3 (31.0-37.0) g/dL RDW 12.7 (11.5-15.5) % Plt Count 316 (150-450) k/uL Neutrophils % 76 % Lymphocytes % 17 % Monocytes % 5 % Eosinophils % 1 % Basophils % 0 % Neutrophils # 10.4 H (1.3-7.7) k/uL Lymphocytes # 2.3 (1.0-4.8) k/uL Monocytes # 0.7 (0-1.0) k/uL Eosinophils # 0.1 (0-0.7) k/uL Basophils # 0.0 (0-0.2) k/uL PT (9.0-12.0) sec INR (<1.2) APTT (22.0-30.0) sec Sodium 140 (137-145) mmol/L Potassium 4.1 (3.5-5.1) mmol/L Chloride 108 H (98-107) mmol/L Carbon Dioxide 25 (22-30) mmol/L Anion Gap 7 mmol/L BUN 19 H (7-17) mg/dL Creatinine 0.79 (0.52-1.04) mg/dL Est GFR (CKD-EPI)AfAm >90 (>60 ml/min/1.73 sqM) Est GFR (CKD-EPI)NonAf >90 (>60 ml/min/1.73 sqM) Glucose 95 (74-99) mg/dL Plasma Lactic Acid Freddie 0.8 (0.7-2.0) mmol/L Calcium 9.3 (8.4-10.2) mg/dL Total Bilirubin 0.5 (0.2-1.3) mg/dL AST 32 (14-36) U/L ALT 38 (9-52) U/L Alkaline Phosphatase 69 (38-126) U/L Troponin I (0.000-0.034) ng/mL Total Protein 6.1 L (6.3-8.2) g/dL Albumin 3.7 (3.5-5.0) g/dL Amylase 39 (30-110) U/L Lipase 105 (23-300) U/L Urine Color Urine Appearance (Clear) Urine pH (5.0-8.0) Ur Specific [place] (1.001-1.035) Urine Protein (Negative) Urine Glucose (UA) (Negative) Urine Ketones (Negative) Urine Blood (Negative) Urine Nitrite (Negative) Urine Bilirubin (Negative) Urine Urobilinogen (<2.0) mg/dL Ur Leukocyte Esterase (Negative) Urine RBC (0-5) /hpf Urine WBC (0-5) /hpf Ur Squamous Epith Cells (0-4) /hpf Amorphous Sediment (None) /hpf Urine Mucus (None) /hpf 01/10/19 01/10/19 01/10/19 Range/Units 14:02 14:02 14:25 WBC (3.8-10.6) k/uL RBC (3.80-5.40) m/uL Hgb (11.4-16.0) gm/dL Hct (34.0-46.0) % MCV (80.0-100.0) fL MCH (25.0-35.0) pg MCHC (31.0-37.0) g/dL RDW (11.5-15.5) % Plt Count (150-450) k/uL Neutrophils % % Lymphocytes % % Monocytes % % Eosinophils % % Basophils % % Neutrophils # (1.3-7.7) k/uL Lymphocytes # (1.0-4.8) k/uL Monocytes # (0-1.0) k/uL Eosinophils # (0-0.7) k/uL Basophils # (0-0.2) k/uL PT 9.4 (9.0-12.0) sec INR 0.9 (<1.2) APTT 23.3 (22.0-30.0) sec Sodium (137-145) mmol/L Potassium (3.5-5.1) mmol/L Chloride (98-107) mmol/L Carbon Dioxide (22-30) mmol/L Anion Gap mmol/L BUN (7-17) mg/dL Creatinine (0.52-1.04) mg/dL Est GFR (CKD-EPI)AfAm (>60 ml/min/1.73 sqM) Est GFR (CKD-EPI)NonAf (>60 ml/min/1.73 sqM) Glucose (74-99) mg/dL Plasma Lactic Acid Freddie (0.7-2.0) mmol/L Calcium (8.4-10.2) mg/dL Total Bilirubin (0.2-1.3) mg/dL AST (14-36) U/L ALT (9-52) U/L Alkaline Phosphatase (38-126) U/L Troponin I <0.012 (0.000-0.034) ng/mL Total Protein (6.3-8.2) g/dL Albumin (3.5-5.0) g/dL Amylase (30-110) U/L Lipase (23-300) U/L Urine Color Yellow Urine Appearance Cloudy H (Clear) Urine pH 6.0 (5.0-8.0) Ur Specific [place] 1.035 (1.001-1.035) Urine Protein 1+ H (Negative) Urine Glucose (UA) Negative (Negative) Urine Ketones Trace H (Negative) Urine Blood Trace H (Negative) Urine Nitrite Negative (Negative) Urine Bilirubin Negative (Negative) Urine Urobilinogen 2.0 (<2.0) mg/dL Ur Leukocyte Esterase Trace H (Negative) Urine RBC 3 (0-5) /hpf Urine WBC 7 H (0-5) /hpf Ur Squamous Epith Cells 18 H (0-4) /hpf Amorphous Sediment Rare H (None) /hpf Urine Mucus Many H (None) /hpf 01/10/19 14:36 EKG shows sinus bradycardia with premature atrial complexes, otherwise normal EKG. Ventricular rate 52 bpm. There was 146 no seconds. QRS duration 80 ms. QT QTc is 440/412 ms. No evidence of ST elevation. - Radiology Data Radiology results: report reviewed CT is negative for pulmonary embolism at this time. Status post cholecystectomy. Minimal fat strength in the gallbladder fossa. No evidence for biliary leak at this time. Small amount of residual pneumoperitoneum. Disposition Clinical Impression: Neck muscle strain, S/P cholecystectomy Disposition: HOME SELF-CARE Condition: Good Instructions (If sedation given, give patient instructions): Cervical Strain (DC), Laparoscopic Cholecystectomy (DC) Additional Instructions: Apply heat and ice every her neck. Have close follow-up with your primary care physician. Return to the emergency department if any alarming signs or symptoms occur. Is patient prescribed a controlled substance at d/c from ED?: No Referrals: Jose Kaba DO [Primary Care Provider] - 1-2 days Jahaira Yates MD [STAFF PHYSICIAN] - 1-2 days Time of Disposition: 15:54
[2019-01-10 14:57] LABS: Amorphous Sediment,Urine Rare /hpf; Appearance,Urine Cloudy (Clear); Bilirubin,Urine Negative (Negative); Blood,Urine Trace (Negative); Color,Urine Yellow; Glucose,Urine (UA) Negative (Negative); Ketones,Urine Trace (Negative); Leukocyte Esterase,Urine Trace (Negative); Mucus,Urine Many /hpf; Nitrite,Urine Negative (Negative); Protein,Urine 1+ (Negative); RBC,Urine 3 /hpf (0-5); Specific Gravity,Urine 1.035 (1.001-1.035); Squamous Epithelial Cell,Urine 18 /hpf (0-4); WBC,Urine 7 /hpf (0-5)
--- NOTE | 2019-01-10 15:31 | CT ---
EXAMINATION TYPE: CT chest angio for PE DATE OF EXAM: 01/10/2019 COMPARISON: None HISTORY: Recent seth, pain down right side of neck, into shoulder and chest. CT DLP: 1011.2 mGycm CONTRAST: CT chest with contrast and 3D reconstruction with MIP imaging is performed with IV Contrast, patient injected with 100 mL of Isovue 370. Contrast-enhanced CT of the chest was performed through the course of the pulmonary arteries with jenni g and mediastinal window settings submitted. 3D reconstruction with MIP imaging was also performed. PULMONARY ARTERIES: The pulmonary arteries and their major tributaries are patent. I do not see caro dence for sizable filling defect to suggest pulmonary embolic process. LUNGS: Emphysematous bleb the medial aspect upper left lung. The lungs are clear and free of infiltra te. No evidence for atelectasis. No pulmonary nodule or mass is detected. No pleural effusion. MEDIASTINUM: Thoracic aorta is of normal caliber,however, evaluation is limited given timing of the contrast bolus. If there is concern for thoracic aortic pathology consider IDALMIS. Correlate clinicall y . The heart is not enlarged. No evidence for mediastinal mass. No mediastinal lymph nodes greater than 1cm. HILAR STRUCTURES: No evidence for mass. No hilar lymph nodes greater than 1 cm. UPPER ABDOMEN: No significant abnormality is seen. IMPRESSION: 1. No evidence for Pulmonary embolism at this time.
--- NOTE | 2019-01-10 15:35 | CT ---
EXAMINATION TYPE: CT abdomen pelvis w con DATE OF EXAM: 01/10/2019 COMPARISON: None HISTORY: Recent seth, pain down right side of neck, into shoulder and chest. CT DLP: 2560 mGycm CONTRAST: CT scan of the abdomen and pelvis is performed without Oral Contrast and with IV Contrast, patient in jected with mL of Isovue 370. FINDINGS: LUNG BASES-: No visible nodule. No infiltrate. LIVER/GB: Status post cholecystectomy. Minimal stranding within the gallbladder fossa. No evidence for biliary leak at this time. No space occupying hepatic lesion. Biliary tree is of normal caliber. PANCREAS: No inflammation. No distinct mass. SPLEEN: No splenic enlargement. No lesion seen. ADRENALS: No nodule. No thickening. KIDNEYS/BLADDER: No hydronephrosis. No nephrolithiasis. No distinct renal mass. Urinary bladder g rossly unremarkable. BOWEL: Normal appendix. Normal bowel caliber. No inflammation. Gastric bariatric procedure. GENITAL ORGANS: No gross abnormality. LYMPH NODES: No greater than 1cm abdominal or pelvic lymph nodes are appreciated. AORTA: No significant abnormality. OSSEOUS STRUCTURES: No significant abnormality is seen. OTHER: Small amount of pneumoperitoneum related to recent cholecystectomy. IMPRESSION: 1. Status post cholecystectomy. Minimal stranding within the gallbladder fossa. No evidence for bilia ry leak at this time. Small amount of the residual pneumoperitoneum.
[2019-01-10 16:17] VITALS: BP 117/73; PULSE 52; TEMP 98.1
--- NOTE | 2019-01-10 21:11 | P.GSCN ---
History of Present Illness Consult date: 01/10/19 Reason for Consult: Chest pain Requesting physician: Xiomara Odell History of present illness: Patient seen and evaluated. CT of the abdomen pelvis and Chest CT independently reviewed. Labs also reviewed. No findings of CBD injury, pulmonary embolism or clinical suggestion of retained gallbladder stone. Patient Chest Ct confirms atelectasis. Patient also reports muscular neck strain also bringing her to the ER for additional evaluation. She has strong family history of PEs in parents hence her anxiety. Results of studies reviewed with re-assurance and follow-up in bariatric office in 2 weeks. Patient was satisfied with level of care. Past Medical History Past Medical History: GERD/Reflux, Sleep Apnea/CPAP/BIPAP Additional Past Medical History / Comment(s): BACK PAIN, PCOS, MENSTRUAL PERIODS LENGTHY/HEAVY/IRREG, LOW IRON. HIRSUTISM -(WAS ON SPIRONOLACTONE FOR THIS). STOMACH ULCERS. HAS BROKEN TOOTH. SLEEP APNEA (NO MACHINE). Anemia-hx iron infusions. History of Any Multi-Drug Resistant Organisms: None Reported Past Surgical History: Bariatric Surgery, Cholecystectomy, Ear Surgery Additional Past Surgical History / Comment(s): TUBES IN EARS (CHILD), EGD, [place]-en-[place] (gastric bypass) 05/27/18; EGD W/ DILATATION 08/15/18. Past Anesthesia/Blood Transfusion Reactions: Postoperative Nausea & Vomiting (PONV) Past Psychological History: Anxiety, Depression Smoking Status: Former smoker Past Alcohol Use History: None Reported Past Drug Use History: Marijuana - Past Family History Mother Family Medical History: Cancer, Myocardial Infarction ([place]), Pulmonary Embolus Additional Family Medical History / Comment(s): at age 45 from PE (secondary to [place]) Father Family Medical History: Diabetes Mellitus Additional Family Medical History / Comment(s): at age 33 secondary to complications of DM; pt states her father had gangrene and osteomylitis. Gangrene led to sepsis and his . Medications and Allergies Home Medications Medication Instructions Recorded Confirmed Type Omeprazole [PriLOSEC] 40 mg PO DAILY 02/08/18 01/09/19 History Calcium Citrate 500 mg PO BID 07/18/18 01/07/19 History Multivitamin,Therapeutic [Thera] 1 each PO DAILY 07/18/18 01/07/19 History Iron (Unknown Dose) 1 tab PO MOTH 01/07/19 History Acetaminophen [Tylenol] 325 mg PO Q4H #30 tab 01/09/19 Rx Bisacodyl [Dulcolax] 5 mg PO DAILY PRN #10 tablet. 01/09/19 Rx Ondansetron Odt [Zofran Odt] 4 mg PO Q8HR PRN #9 tab 01/09/19 Rx Simethicone 40 mg/0.6 ml Drops 40 mg PO PCHS PRN #30 ml 01/09/19 Rx [Mylicon Drops] Allergies Allergy/AdvReac Type Severity Reaction Status Date / Time hydromorphone [From Dilaudid] AdvReac Nausea Verified 01/10/19 12:48 Surgical - Exam Vital Signs Temp Pulse Resp BP Pulse Ox 98.2 F 71 18 139/79 97 01/10/19 12:45 01/10/19 12:45 01/10/19 12:45 01/10/19 12:45 01/10/19 12:45 Results - Labs 01/10/19 14:02 01/10/19 14:02 Abnormal Lab Results - Last 24 Hours (Table) 01/10/19 01/10/19 01/10/19 Range/Units 14:02 14:02 14:25 WBC 13.7 H (3.8-10.6) k/uL Neutrophils # 10.4 H (1.3-7.7) k/uL Chloride 108 H (98-107) mmol/L BUN 19 H (7-17) mg/dL Total Protein 6.1 L (6.3-8.2) g/dL Urine Appearance Cloudy H (Clear) Urine Protein 1+ H (Negative) Urine Ketones Trace H (Negative) Urine Blood Trace H (Negative) Ur Leukocyte Esterase Trace H (Negative) Urine WBC 7 H (0-5) /hpf Ur Squamous Epith Cells 18 H (0-4) /hpf Amorphous Sediment Rare H (None) /hpf Urine Mucus Many H (None) /hpf Diabetes panel 01/10/19 Range/Units 14:02 Sodium 140 (137-145) mmol/L Potassium 4.1 (3.5-5.1) mmol/L Chloride 108 H (98-107) mmol/L Carbon Dioxide 25 (22-30) mmol/L BUN 19 H (7-17) mg/dL Creatinine 0.79 (0.52-1.04) mg/dL Glucose 95 (74-99) mg/dL Calcium 9.3 (8.4-10.2) mg/dL AST 32 (14-36) U/L ALT 38 (9-52) U/L Alkaline Phosphatase 69 (38-126) U/L Total Protein 6.1 L (6.3-8.2) g/dL Albumin 3.7 (3.5-5.0) g/dL Calcium panel 01/10/19 Range/Units 14:02 Calcium 9.3 (8.4-10.2) mg/dL Albumin 3.7 (3.5-5.0) g/dL Pituitary panel 01/10/19 Range/Units 14:02 Sodium 140 (137-145) mmol/L Potassium 4.1 (3.5-5.1) mmol/L Chloride 108 H (98-107) mmol/L Carbon Dioxide 25 (22-30) mmol/L BUN 19 H (7-17) mg/dL Creatinine 0.79 (0.52-1.04) mg/dL Glucose 95 (74-99) mg/dL Calcium 9.3 (8.4-10.2) mg/dL Adrenal panel 01/10/19 Range/Units 14:02 Sodium 140 (137-145) mmol/L Potassium 4.1 (3.5-5.1) mmol/L Chloride 108 H (98-107) mmol/L Carbon Dioxide 25 (22-30) mmol/L BUN 19 H (7-17) mg/dL Creatinine 0.79 (0.52-1.04) mg/dL Glucose 95 (74-99) mg/dL Calcium 9.3 (8.4-10.2) mg/dL Total Bilirubin 0.5 (0.2-1.3) mg/dL AST 32 (14-36) U/L ALT 38 (9-52) U/L Alkaline Phosphatase 69 (38-126) U/L Total Protein 6.1 L (6.3-8.2) g/dL Albumin 3.7 (3.5-5.0) g/dL
== END 2019-01-10 16:29 | disposition home or self-care (01) ==
LOC: EC 12:30
DX: S16.1XXA Strain of muscle, fascia and tendon at neck level, initial encounter (principal); K82.8 Other specified diseases of gallbladder; K21.9 Gastro-esophageal reflux disease without esophagitis; Z79.899 Other long term (current) drug therapy; Z88.5 Allergy status to narcotic agent; Z87.891 Personal history of nicotine dependence; Z98.84 Bariatric surgery status; Z90.49 Acquired absence of other specified parts of digestive tract
CPT/HCPCS: 36415; 93005; 80053; 82150; 83605; 83690; 84484; 85025; 85610; 85730; 81001; 71275; 74177; 99284; 96360; 96361; Q9967

== ENCOUNTER → 2019-02-26 | Outpatient (CLI) | payer OTHER ==
--- NOTE | 2019-02-26 15:33 | P.PN ---
Subjective Progress Note Date: 02/26/19 DATE OF SERVICE: 02/26/2019 CHIEF COMPLAINT: Morbid obesity HISTORY OF PRESENT ILLNESS: Araceli Fabian is a 28-year-old female status post gastric bypass 05/27/2018. She is 9 months out. She is frustated as she reports no significant weight loss in 2 months. She is 9 months out. She exercises routinely. She comes in crying. She is not journaling her foods. Additionally, she status post cholecystectomy. At her height of 5 feet 8-1/4 inches, she was 392 pounds. Her body mass index was 59.3. [place] body weight is 163 pounds. She comes in weighing 299 pounds from 301 pounds, 2 months ago. She has lost 2 pounds in 2 months. Lifetime weight loss 93 pounds. Lifetime percent excess weight loss is 41 %. PHYSICAL EXAM: VITAL SIGNS: 5 foot 8-1/4, 299 pounds. Body mass index of 45.2 Vital Signs Temp 97.2 F L 02/26/19 15:24 Pulse 76 02/26/19 15:24 Resp BP 102/65 02/26/19 15:24 Pulse Ox GENERAL: Well-developed female in no acute distress. HEENT: No sclerae icterus. Extraocular movements grossly intact. Moist buccal pink mucosa. NECK: Supple without lymphadenopathy. CHEST: Nonlabored respirations, equal bilateral excursions. CARDIOVASCULAR: Regular rate and rhythm. 2+ radial pulses ABDOMEN: Soft. Nondistended nontender. MUSCULOSKELETAL: No clubbing, or cyanosis. NEURO: No focal or lateralizing signs. Cranial nerves II through XII grossly within normal limits. PSYCH: Appropriate affect. Alert and oriented to person, place and time. SKIN: Well perfused. Good skin turgor. LABS: Vitamin A is low Vitamin D is low Zinc is low Pre-albumin is low ASSESSMENT: 1. Morbid obesity due to excess caloric intake. 2. Body mass index of 57.5 down to 45.2 3. Obstructive sleep apnea. 4. Osteoarthritis of lower back, due to morbid obesity. 5. Gastroesophageal reflux disease. 6. Vitamin D deficiency. 7. Hypercholesterolemia. 8. Hypertriglyceridemia. 9. Hypertensive heart disease 10. Glucose intolerance. 11. Fatty food intolerance, resolved 12. Dietary surveillance and counseling. 13. Vitamin A deficiency 14. Iron deficiency anemia. 15. Metromenorrhagia 16. Status post gastric bypass 17. Gastrojejunal stricture with dysphagia, resolved 18. Right upper quadrant abdominal pain, resolved 19. Chronic cholecystitis, resolved 20. Zinc deficiency, new PLAN: 1. She is not journaling her foods 2. Vitamin A and D prescription written 3. I have asked her to write down her foods and bring in weekly 4. Recommend bariatric labs status post 9 months from gastric bypass 5. Recommend zinc supplement 50 mg daily Objective - Vital Signs Vital signs: Vital Signs Temp 97.2 F L 02/26/19 15:24 Pulse 76 02/26/19 15:24 Resp BP 102/65 02/26/19 15:24 Pulse Ox Intake & Output 02/25/19 02/26/19 02/26/19 18:59 06:59 18:59 Weight 135.851 kg
== END ==
CPT/HCPCS: 99211

== ENCOUNTER 2019-05-12 10:43 | Emergency (ER) | payer OTHER ==
[2019-05-12 10:49] VITALS: TEMP 98.1
[2019-05-12] MEDS ORDERED: SODIUM CHLORIDE 0.9% 500 ML 500 ML IV ONE (11:24)
--- NOTE | 2019-05-12 11:29 | ED ---
General Adult HPI - General Chief complaint: Vaginal Bleeding Stated complaint: Bleeding Time Seen by Provider: 05/12/19 10:51 Source: patient, RN notes reviewed Mode of arrival: ambulatory Limitations: no limitations - History of Present Illness Initial comments: 29-year-old female with a past medical history ofEOS, heavy irregular menstrual periods, hirsutism, anemia presents to the emergency department for pelvic pain and bleeding. Patient states she has had vaginal bleeding for about 2 weeks. States it started off very mild however has increased over the past 4 or 5 days. States that today she soaked through a super tampon in an hour today. States that she does have a history of heavy periods. States she is having more pelvic cramping than normal. Patient does not believe she is but states it is possible. Denies fevers or chills.Patient has no other complaints at this time including shortness of breath, chest pain, nausea or vomiting, headache, or visual changes. - Related Data Home Medications Medication Instructions Recorded Confirmed Omeprazole [PriLOSEC] 40 mg PO DAILY 02/08/18 05/12/19 Multivitamin,Therapeutic [Thera] 1 tab PO DAILY 07/18/18 05/12/19 Iron Chewable 1 tab PO DAILY 05/12/19 05/12/19 True Vision 2 tab PO BID 05/12/19 05/12/19 Allergies Allergy/AdvReac Type Severity Reaction Status Date / Time hydromorphone [From Dilaudid] AdvReac Nausea Verified 05/12/19 11:15 Review of Systems ROS Statement: Those systems with pertinent positive or pertinent negative responses have been documented in the HPI. ROS Other: All systems not noted in ROS Statement are negative. Past Medical History Past Medical History: GERD/Reflux, Sleep Apnea/CPAP/BIPAP Additional Past Medical History / Comment(s): BACK PAIN, PCOS, MENSTRUAL PERIODS LENGTHY/HEAVY/IRREG, LOW IRON. HIRSUTISM -(WAS ON SPIRONOLACTONE FOR THIS). STOMACH ULCERS. HAS BROKEN TOOTH. SLEEP APNEA (NO MACHINE). Anemia-hx iron infusions. History of Any Multi-Drug Resistant Organisms: None Reported Past Surgical History: Bariatric Surgery, Cholecystectomy, Ear Surgery Additional Past Surgical History / Comment(s): TUBES IN EARS (CHILD), EGD, [place]-en-[place] (gastric bypass) 05/27/18; EGD W/ DILATATION 08/15/18. Past Anesthesia/Blood Transfusion Reactions: Postoperative Nausea & Vomiting (PONV) Past Psychological History: Anxiety, Depression Smoking Status: Former smoker Past Alcohol Use History: None Reported Past Drug Use History: Marijuana - Past Family History Mother Family Medical History: Cancer, Myocardial Infarction ([place]), Pulmonary Embolus Additional Family Medical History / Comment(s): at age 45 from PE (secondary to [place]) Father Family Medical History: Diabetes Mellitus Additional Family Medical History / Comment(s): at age 33 secondary to complications of DM; pt states her father had gangrene and osteomylitis. Gangrene led to sepsis and his . General Exam Limitations: no limitations General appearance: alert, in no apparent distress Head exam: Present: atraumatic, normocephalic, normal inspection Eye exam: Present: normal appearance, PERRL, EOMI. Absent: scleral icterus, conjunctival injection, periorbital swelling ENT exam: Present: normal exam, mucous membranes moist Neck exam: Present: normal inspection, full ROM. Absent: tenderness, meningismus, lymphadenopathy Respiratory exam: Present: normal lung sounds bilaterally. Absent: respiratory distress, wheezes, rales, rhonchi, stridor Cardiovascular Exam: Present: regular rate, normal rhythm, normal heart sounds. Absent: systolic murmur, diastolic murmur, rubs, gallop, clicks GI/Abdominal exam: Present: soft, normal bowel sounds. Absent: distended, tenderness, guarding, rebound, rigid External exam: Present: normal external exam. Absent: erythema, swelling, lesions, lacerations, ecchymosis Speculum exam: Present: vaginal bleeding (Mild, no significant hemorrhage). Absent: normal speculum exam, erythema, vaginal discharge, cervical discharge, foreign body, tissue, laceration By manual exam: Present: uterine tenderness. Absent: normal by manual exam, cervical motion tenderness, adnexal tenderness, adnexal mass, uterine enlargement Course Vital Signs 05/12/19 10:45 Temperature 98.1 F Pulse Rate 87 Respiratory 18 Rate Blood Pressure 127/82 O2 Sat by Pulse 96 Oximetry Medical Decision Making - Medical Decision Making CBC is unremarkable. Hemoglobin is stable at 13.3. CMP and her markable. Patient does have low total protein and albumin likely secondary to bariatric surgery. Urinalysis shows greater than 182 red blood cells however this is likely from the vaginal bleeding. HCG is negative. Trichomonas is negative, gonorrhea and chlamydia are pending. Pelvic exam was performed and revealed only mild vaginal bleeding at this time. Ultrasound shows findings consistent with polycystic ovarian with multiple follicles around each ovary. There are good arterial and venous flow within the ovaries. Patient likely experiencing dysfunctional uterine bleeding secondary to PCS. Patient states she has been offered control by her SENIOR IT ARCHITECT and has refused. At this time patient can be discharged home as all vitals and blood work are stable. However she is directed to follow up with Dr. Covarrubias her SENIOR IT ARCHITECT as soon as possible. She is recommended to return here if bleeding does not improve for a repeat hemoglobin in the next few days. - Lab Data Result diagrams: 05/12/19 11:33 05/12/19 11:33 Lab Results 05/12/19 05/12/19 05/12/19 Range/Units 11:33 11:33 11:33 WBC 6.9 (3.8-10.6) k/uL RBC 4.12 (3.80-5.40) m/uL Hgb 13.3 (11.4-16.0) gm/dL Hct 39.5 (34.0-46.0) % MCV 96.1 (80.0-100.0) fL MCH 32.4 (25.0-35.0) pg MCHC 33.7 (31.0-37.0) g/dL RDW 12.6 (11.5-15.5) % Plt Count 254 (150-450) k/uL Neutrophils % 57 % Lymphocytes % 33 % Monocytes % 5 % Eosinophils % 3 % Basophils % 0 % Neutrophils # 3.9 (1.3-7.7) k/uL Lymphocytes # 2.3 (1.0-4.8) k/uL Monocytes # 0.3 (0-1.0) k/uL Eosinophils # 0.2 (0-0.7) k/uL Basophils # 0.0 (0-0.2) k/uL Sodium 138 (137-145) mmol/L Potassium 4.4 (3.5-5.1) mmol/L Chloride 109 H (98-107) mmol/L Carbon Dioxide 25 (22-30) mmol/L Anion Gap 4 mmol/L BUN 15 (7-17) mg/dL Creatinine 0.71 (0.52-1.04) mg/dL Est GFR (CKD-EPI)AfAm >90 (>60 ml/min/1.73 sqM) Est GFR (CKD-EPI)NonAf >90 (>60 ml/min/1.73 sqM) Glucose 92 (74-99) mg/dL Calcium 8.6 (8.4-10.2) mg/dL Total Bilirubin 0.3 (0.2-1.3) mg/dL AST 21 (14-36) U/L ALT 23 (9-52) U/L Alkaline Phosphatase 68 (38-126) U/L Total Protein 5.4 L (6.3-8.2) g/dL Albumin 3.2 L (3.5-5.0) g/dL Urine Color Urine Appearance (Clear) Urine pH (5.0-8.0) Ur Specific [place] (1.001-1.035) Urine Protein (Negative) Urine Glucose (UA) (Negative) Urine Ketones (Negative) Urine Blood (Negative) Urine Nitrite (Negative) Urine Bilirubin (Negative) Urine Urobilinogen (<2.0) mg/dL Ur Leukocyte Esterase (Negative) Urine RBC (0-5) /hpf Ur Squamous Epith Cells (0-4) /hpf Urine Mucus (None) /hpf Urine HCG, Qual Not Detected (Not Detectd) Trichomonas Ag (Rapid) (Negative) 05/12/19 05/12/19 Range/Units 11:33 11:33 WBC (3.8-10.6) k/uL RBC (3.80-5.40) m/uL Hgb (11.4-16.0) gm/dL Hct (34.0-46.0) % MCV (80.0-100.0) fL MCH (25.0-35.0) pg MCHC (31.0-37.0) g/dL RDW (11.5-15.5) % Plt Count (150-450) k/uL Neutrophils % % Lymphocytes % % Monocytes % % Eosinophils % % Basophils % % Neutrophils # (1.3-7.7) k/uL Lymphocytes # (1.0-4.8) k/uL Monocytes # (0-1.0) k/uL Eosinophils # (0-0.7) k/uL Basophils # (0-0.2) k/uL Sodium (137-145) mmol/L Potassium (3.5-5.1) mmol/L Chloride (98-107) mmol/L Carbon Dioxide (22-30) mmol/L Anion Gap mmol/L BUN (7-17) mg/dL Creatinine (0.52-1.04) mg/dL Est GFR (CKD-EPI)AfAm (>60 ml/min/1.73 sqM) Est GFR (CKD-EPI)NonAf (>60 ml/min/1.73 sqM) Glucose (74-99) mg/dL Calcium (8.4-10.2) mg/dL Total Bilirubin (0.2-1.3) mg/dL AST (14-36) U/L ALT (9-52) U/L Alkaline Phosphatase (38-126) U/L Total Protein (6.3-8.2) g/dL Albumin (3.5-5.0) g/dL Urine Color Yellow Urine Appearance Cloudy H (Clear) Urine pH 5.5 (5.0-8.0) Ur Specific [place] 1.028 (1.001-1.035) Urine Protein 1+ H (Negative) Urine Glucose (UA) Negative (Negative) Urine Ketones Negative (Negative) Urine Blood Large H (Negative) Urine Nitrite Negative (Negative) Urine Bilirubin Negative (Negative) Urine Urobilinogen 2.0 (<2.0) mg/dL Ur Leukocyte Esterase Trace H (Negative) Urine RBC >182 H (0-5) /hpf Ur Squamous Epith Cells 3 (0-4) /hpf Urine Mucus Many H (None) /hpf Urine HCG, Qual (Not Detectd) Trichomonas Ag (Rapid) Negative (Negative) Disposition Clinical Impression: Dysfunctional uterine bleeding Disposition: HOME SELF-CARE Condition: Good Instructions (If sedation given, give patient instructions): Dysmenorrhea (ED) Additional Instructions: Please follow-up with your SENIOR IT ARCHITECT doctor Marci as soon as possible. If you have any worsening symptoms or symptoms are not improving return to the emergency department. Is patient prescribed a controlled substance at d/c from ED?: No Referrals: Jose Kaba DO [Primary Care Provider] - 1-2 days Gagan Covarrubias DO [REFERRING] - 1-2 days Time of Disposition: 14:00
[2019-05-12 11:55] LABS: Basophils % (A) 0 %; Eosinophils # (A) 0.2 k/uL (0-0.7); Eosinophils % (A) 3 %; HCT 39.5 % (34.0-46.0); HGB 13.3 gm/dL (11.4-16.0); Lymphocytes # (A) 2.3 k/uL (1.0-4.8); Lymphocytes % (A) 33 %; MCH 32.4 pg (25.0-35.0); MCHC 33.7 g/dL (31.0-37.0); MCV 96.1 fL (80.0-100.0); Mean Platelet Volume 6.2; Monocytes # (A) 0.3 k/uL (0-1.0); Monocytes % (A) 5 %; Neutrophils # (A) 3.9 k/uL (1.3-7.7); Neutrophils % (A) 57 %; Platelet Count 254 k/uL (150-450); RBC 4.12 m/uL (3.80-5.40); RDW 12.6 % (11.5-15.5); WBC 6.9 k/uL (3.8-10.6)
[2019-05-12 12:14] LABS: ALT 23 U/L (9-52); AST 21 U/L (14-36); African American GFR (CKD) >90 (>60 ml/min/1.73 sqM); Albumin 3.2 g/dL (3.5-5.0); Alkaline Phosphatase 68 U/L (38-126); Anion Gap 4 mmol/L; Blood Urea Nitrogen 15 mg/dL (7-17); Calcium 8.6 mg/dL (8.4-10.2); Carbon Dioxide 25 mmol/L (22-30); Chloride 109 mmol/L (98-107); Glucose 92 mg/dL (74-99); Potassium 4.4 mmol/L (3.5-5.1); Sodium 138 mmol/L (137-145); Total Bilirubin 0.3 mg/dL (0.2-1.3); Total Protein 5.4 g/dL (6.3-8.2)
[2019-05-12 12:33] LABS: Appearance,Urine Cloudy (Clear); Bilirubin,Urine Negative (Negative); Blood,Urine Large (Negative); Color,Urine Yellow; Glucose,Urine (UA) Negative (Negative); Ketones,Urine Negative (Negative); Leukocyte Esterase,Urine Trace (Negative); Mucus,Urine Many /hpf; Nitrite,Urine Negative (Negative); PH, Urine 5.5 (5.0-8.0); Protein,Urine 1+ (Negative); RBC,Urine >182 /hpf (0-5); Specific Gravity,Urine 1.028 (1.001-1.035); Squamous Epithelial Cell,Urine 3 /hpf (0-4)
--- NOTE | 2019-05-12 13:48 | US ---
EXAMINATION TYPE: US transvaginal DATE OF EXAM: 05/12/2019 COMPARISON: NONE CLINICAL HISTORY: pain. very heavy bleeding x 2 weeks, PCOS, irregular cycles TECHNIQUE: TV. Transvaginal sonographic images Date of LMP: irregular cycles EXAM MEASUREMENTS: Uterus: 7.5 x 4.2 x 3.1 cm Endometrial Stripe: 0.9 cm Right Ovary: 4.0 x 3.9 x 2.8 cm Left Ovary: 3.8 x 3.6 x 2.4 cm A scale, color Doppler, spectral Doppler imaging performed. Color flow and vascular waveforms are not ed to both ovaries. 1. Uterus: Anteverted nabothian within cervix 2. Endometrium: wnl 3. Right Ovary: multiple follicles under 1cm, ring of pearls 4. Left Ovary: multiple follicles under 1cm, ring of pearls Spectral, color and waveform doppler imaging shows good arterial and venous flow within the ovaries ; there is no evidence for ovarian torsion. 5. Bilateral Adnexa: wnl 6. Posterior cul-de-sac: wnl IMPRESSION: Findings consistent with a polycystic ovarian syndrome
[2019-05-12] MEDS ORDERED: KETOROLAC 30 MG/ML 1 ML VIAL IVP STA (14:02)
[2019-05-12 14:16] VITALS: BP 124/84; PULSE 85; RESP 16
[2019-05-13 13:45] LABS: N. gonorrhoeae,PCR Negative (Neg,Equiv); Neisseria Source Vagina
[2019-05-13 14:05] LABS: C. trachomatis,PCR Negative (Neg,Equiv); Chlamydia trachomatis Source Vagina
== END 2019-05-12 14:06 | disposition home or self-care (01) ==
LOC: EC 10:43
DX: N93.8 Other specified abnormal uterine and vaginal bleeding (principal); K21.9 Gastro-esophageal reflux disease without esophagitis; G47.30 Sleep apnea, unspecified; Z32.02 Encounter for pregnancy test, result negative; Z79.899 Other long term (current) drug therapy; Z88.5 Allergy status to narcotic agent; Z87.891 Personal history of nicotine dependence; Z98.84 Bariatric surgery status; Z99.89 Dependence on other enabling machines and devices
CPT/HCPCS: 36415; 80053; 85025; 81001; 81025; 87808; 87491; 87591; 93975; 76830; 99284; 96374; 96361; J1885

== ENCOUNTER 2019-07-02 03:41 | Emergency (ER) | payer OTHER ==
[2019-07-02 03:51] VITALS: RESP 18; TEMP 97.7
[2019-07-02 04:38] LABS: Basophils % (A) 1 %; Eosinophils # (A) 0.3 k/uL (0-0.7); Eosinophils % (A) 5 %; HCT 38.2 % (34.0-46.0); HGB 12.8 gm/dL (11.4-16.0); Lymphocytes % (A) 33 %; MCH 32.2 pg (25.0-35.0); MCHC 33.4 g/dL (31.0-37.0); MCV 96.3 fL (80.0-100.0); Mean Platelet Volume 7.8; Monocytes # (A) 0.3 k/uL (0-1.0); Monocytes % (A) 5 %; Neutrophils # (A) 3.3 k/uL (1.3-7.7); Neutrophils % (A) 54 %; Platelet Count 294 k/uL (150-450); RBC 3.97 m/uL (3.80-5.40); RDW 12.3 % (11.5-15.5)
[2019-07-02 04:46] LABS: ALT 15 U/L (4-34); AST 21 U/L (14-36); African American GFR (CKD) >90 (>60 ml/min/1.73 sqM); Albumin 3.3 g/dL (3.5-5.0); Alkaline Phosphatase 72 U/L (38-126); Anion Gap 5 mmol/L; Blood Urea Nitrogen 16 mg/dL (7-17); Carbon Dioxide 28 mmol/L (22-30); Chloride 107 mmol/L (98-107); Glucose 85 mg/dL (74-99); INR 0.9 (<1.2); Non-African American GFR(CKD) >90 (>60 ml/min/1.73 sqM); Partial Thromboplastin Time 25.7 sec (22.0-30.0); Potassium 3.9 mmol/L (3.5-5.1); Prothrombin Time 9.5 sec (9.0-12.0); Sodium 140 mmol/L (137-145); Total Bilirubin 0.5 mg/dL (0.2-1.3); Total Protein 5.9 g/dL (6.3-8.2)
--- NOTE | 2019-07-02 05:05 | ED ---
General Adult HPI - General Chief complaint: Vaginal Bleeding Stated complaint: vaginal bleeding Time Seen by Provider: 07/02/19 03:50 Source: patient, family, RN notes reviewed, old records reviewed Mode of arrival: ambulatory - History of Present Illness Initial comments: 29-year-old female presents for evaluation of vaginal bleeding. Patient has history of dysfunctional uterine bleeding and polycystic ovarian syndrome. She states she has had menstrual bleeding for the past 2 weeks. She has reported small clots and has been using greater than 20 tampons daily. Denies dyspnea. Denies lightheadedness. She is uncertain if she is . She currently follows with an [facility] and has an appointment within the next 2 days. She is previously been on progesterone but is not currently taking progesterone. - Related Data Home Medications Medication Instructions Recorded Confirmed Omeprazole [PriLOSEC] 40 mg PO DAILY 02/08/18 05/12/19 Multivitamin,Therapeutic [Thera] 1 tab PO DAILY 07/18/18 05/12/19 Iron Chewable 1 tab PO DAILY 05/12/19 05/12/19 True Vision 2 tab PO BID 05/12/19 05/12/19 Allergies Allergy/AdvReac Type Severity Reaction Status Date / Time hydromorphone [From Dilaudid] AdvReac Nausea Verified 05/12/19 11:15 Review of Systems ROS Statement: Those systems with pertinent positive or pertinent negative responses have been documented in the HPI. ROS Other: All systems not noted in ROS Statement are negative. Past Medical History Past Medical History: GERD/Reflux, Sleep Apnea/CPAP/BIPAP Additional Past Medical History / Comment(s): BACK PAIN, PCOS, MENSTRUAL PERIODS LENGTHY/HEAVY/IRREG, LOW IRON. HIRSUTISM -(WAS ON SPIRONOLACTONE FOR THIS). STOMACH ULCERS. HAS BROKEN TOOTH. SLEEP APNEA (NO MACHINE). Anemia-hx iron infusions. History of Any Multi-Drug Resistant Organisms: None Reported Past Surgical History: Bariatric Surgery, Cholecystectomy, Ear Surgery Additional Past Surgical History / Comment(s): TUBES IN EARS (CHILD), EGD, [place] (gastric bypass) 05/27/18; EGD W/ DILATATION 08/15/18. Past Anesthesia/Blood Transfusion Reactions: Postoperative Nausea & Vomiting (PONV) Past Psychological History: Anxiety, Depression Smoking Status: Former smoker Past Alcohol Use History: None Reported Past Drug Use History: Marijuana - Past Family History Mother Family Medical History: Cancer, Myocardial Infarction ([place]), Pulmonary Embolus Additional Family Medical History / Comment(s): at age 45 from PE (secondary to [place]) Father Family Medical History: Diabetes Mellitus Additional Family Medical History / Comment(s): at age 33 secondary to complications of DM; pt states her father had gangrene and osteomylitis. Gangrene led to sepsis and his . General Exam General appearance: alert, in no apparent distress Head exam: Present: atraumatic, normocephalic Eye exam: Present: normal appearance, PERRL Neck exam: Present: normal inspection. Absent: tenderness, meningismus Respiratory exam: Present: normal lung sounds bilaterally. Absent: respiratory distress, wheezes Cardiovascular Exam: Present: regular rate, normal rhythm GI/Abdominal exam: Present: soft. Absent: distended, tenderness, guarding External exam: Present: normal external exam Speculum exam: Present: vaginal bleeding, other (cervical os is closed, minimal bleeding, several small clots) By manual exam: Present: normal by manual exam. Absent: cervical motion tenderness, adnexal tenderness Neurological exam: Present: alert, oriented X3 Psychiatric exam: Present: normal affect, normal mood Skin exam: Present: warm, dry, intact. Absent: cyanosis, diaphoretic Course Vital Signs 07/02/19 03:47 Temperature 97.7 F Pulse Rate 58 L Respiratory 18 Rate Blood Pressure 117/82 O2 Sat by Pulse 98 Oximetry Medical Decision Making - Medical Decision Making 29-year-old female with history of dysfunctional uterine bleeding of PCO as presenting with vaginal bleeding. She has minimal bleeding on exam, no significant hemorrhage. She has stable vitals. She has normal hemoglobin at 12.8. She has normal labs and is not . She has an appointment with her [facility] within the next 48 hours. She will maintain this appointment. She will be present with worsening or changing symptoms. - Lab Data Result diagrams: 07/02/19 04:25 07/02/19 04:25 Lab Results 07/02/19 07/02/19 07/02/19 Range/Units 04:18 04:25 04:25 WBC 6.0 (3.8-10.6) k/uL RBC 3.97 (3.80-5.40) m/uL Hgb 12.8 (11.4-16.0) gm/dL Hct 38.2 (34.0-46.0) % MCV 96.3 (80.0-100.0) fL MCH 32.2 (25.0-35.0) pg MCHC 33.4 (31.0-37.0) g/dL RDW 12.3 (11.5-15.5) % Plt Count 294 (150-450) k/uL Neutrophils % 54 % Lymphocytes % 33 % Monocytes % 5 % Eosinophils % 5 % Basophils % 1 % Neutrophils # 3.3 (1.3-7.7) k/uL Lymphocytes # 2.0 (1.0-4.8) k/uL Monocytes # 0.3 (0-1.0) k/uL Eosinophils # 0.3 (0-0.7) k/uL Basophils # 0.0 (0-0.2) k/uL PT (9.0-12.0) sec INR (<1.2) APTT (22.0-30.0) sec Sodium 140 (137-145) mmol/L Potassium 3.9 (3.5-5.1) mmol/L Chloride 107 (98-107) mmol/L Carbon Dioxide 28 (22-30) mmol/L Anion Gap 5 mmol/L BUN 16 (7-17) mg/dL Creatinine 0.72 (0.52-1.04) mg/dL Est GFR (CKD-EPI)AfAm >90 (>60 ml/min/1.73 sqM) Est GFR (CKD-EPI)NonAf >90 (>60 ml/min/1.73 sqM) Glucose 85 (74-99) mg/dL Calcium 9.0 (8.4-10.2) mg/dL Total Bilirubin 0.5 (0.2-1.3) mg/dL AST 21 (14-36) U/L ALT 15 (4-34) U/L Alkaline Phosphatase 72 (38-126) U/L Total Protein 5.9 L (6.3-8.2) g/dL Albumin 3.3 L (3.5-5.0) g/dL Urine HCG, Qual Not Detected (Not Detectd) 07/02/19 Range/Units 04:25 WBC (3.8-10.6) k/uL RBC (3.80-5.40) m/uL Hgb (11.4-16.0) gm/dL Hct (34.0-46.0) % MCV (80.0-100.0) fL MCH (25.0-35.0) pg MCHC (31.0-37.0) g/dL RDW (11.5-15.5) % Plt Count (150-450) k/uL Neutrophils % % Lymphocytes % % Monocytes % % Eosinophils % % Basophils % % Neutrophils # (1.3-7.7) k/uL Lymphocytes # (1.0-4.8) k/uL Monocytes # (0-1.0) k/uL Eosinophils # (0-0.7) k/uL Basophils # (0-0.2) k/uL PT 9.5 (9.0-12.0) sec INR 0.9 (<1.2) APTT 25.7 (22.0-30.0) sec Sodium (137-145) mmol/L Potassium (3.5-5.1) mmol/L Chloride (98-107) mmol/L Carbon Dioxide (22-30) mmol/L Anion Gap mmol/L BUN (7-17) mg/dL Creatinine (0.52-1.04) mg/dL Est GFR (CKD-EPI)AfAm (>60 ml/min/1.73 sqM) Est GFR (CKD-EPI)NonAf (>60 ml/min/1.73 sqM) Glucose (74-99) mg/dL Calcium (8.4-10.2) mg/dL Total Bilirubin (0.2-1.3) mg/dL AST (14-36) U/L ALT (4-34) U/L Alkaline Phosphatase (38-126) U/L Total Protein (6.3-8.2) g/dL Albumin (3.5-5.0) g/dL Urine HCG, Qual (Not Detectd) Disposition Clinical Impression: Menorrhagia, Dysfunctional uterine bleeding Disposition: HOME SELF-CARE Condition: Good Instructions (If sedation given, give patient instructions): Dysfunctional Uterine Bleeding (ED) Is patient prescribed a controlled substance at d/c from ED?: No Referrals: Jose Kaba DO [Primary Care Provider] - 1-2 days Gagan Covarrubias DO [REFERRING] - 1-2 days Time of Disposition: 05:04
[2019-07-02 05:24] VITALS: BP 122/74; PULSE 88
== END 2019-07-02 05:24 | disposition home or self-care (01) ==
LOC: EC 03:41
DX: N93.8 Other specified abnormal uterine and vaginal bleeding (principal); N92.0 Excessive and frequent menstruation with regular cycle; E28.2 Polycystic ovarian syndrome; K21.9 Gastro-esophageal reflux disease without esophagitis; Z87.891 Personal history of nicotine dependence; Z88.5 Allergy status to narcotic agent
CPT/HCPCS: 36415; 80053; 81025; 85025; 85610; 85730; 86850; 86900; 86901; 99284

== ENCOUNTER → 2019-07-30 | Outpatient (CLI) | payer OTHER ==
--- NOTE | 2019-07-30 15:47 | P.PN ---
Subjective Progress Note Date: 07/30/19 DATE OF SERVICE: 07/30/2019 CHIEF COMPLAINT: Morbid obesity HISTORY OF PRESENT ILLNESS: Araceli Fabian is a 28-year-old female status post gastric bypass 05/27/2018. She is over 1 year out. She comes in with palpitations and orthostatic hypotension. She also reports mood disorder. She has panniculitis. She comes in with new problems with mood disorder and hypotension. At her height of 5 feet 8-1/4 inches, she was 392 pounds. Her body mass index was 59.3. [place] body weight is 163 pounds. She comes in weighing 279 pounds from 299 pounds, 1 month ago. Her BMI 42.3. She has lost 19 pounds in 1 month. Lifetime weight loss 113 pounds. Lifetime percent excess weight loss is 49 %. PAST MEDICAL HISTORY: 1. Morbid obesity, highest BMI 59.3 2. Hypertension. 3. History of gastric ulcers. 4. Diabetes type 2, diet controlled. 5. Osteoarthritis of the lower back. 6. Obstructive sleep apnea 7. Gastroesophageal reflux disease PAST SURGICAL HISTORY: 1. Upper endoscopy. 2. Myringotomy, tubes in the ear. 3. Gastric bypass MEDICATIONS: Home Medications Medication Instructions Recorded Confirmed Omeprazole [PriLOSEC] 40 mg PO DAILY 02/08/18 01/09/19 Calcium Citrate 500 mg PO BID 07/18/18 01/07/19 Multivitamin,Therapeutic [Thera] 1 each PO DAILY 07/18/18 01/07/19 Iron (Unknown Dose) 1 tab PO MOTH 01/07/19 Previous Rx's Medication Instructions Recorded Acetaminophen [Tylenol] 325 mg PO Q4H #30 tab 01/09/19 Bisacodyl [Dulcolax] 5 mg PO DAILY PRN #10 tablet. 01/09/19 Ondansetron Odt [Zofran Odt] 4 mg PO Q8HR PRN #9 tab 01/09/19 Simethicone 40 mg/0.6 ml Drops 40 mg PO PCHS PRN #30 ml 01/09/19 [Mylicon Drops] ALLERGIES: Denies. SOCIAL HISTORY: History of tobacco use. History of recreational marijuana use. FAMILY HISTORY: Notable for obesity. She also has a family history of diabetes. She denies any familial history of ulcerative colitis or Crohn's disease. She denies any stomach cancers in her family. She does have history of her mother dying of pulmonary embolism. REVIEW OF SYSTEMS: CONSTITUTIONAL: At her height of 5 feet 8-1/4 inches, she was 392 pounds. Her body mass index was 59.3. [place] body weight is 163 pounds. RESPIRATORY: Has obstructive sleep apnea now resolved. No recent pneumonias GASTROINTESTINAL: History of gastroesophageal reflux disease now resolved HEENT: No troubles with vision or hearing. Denies dysphagia. ENDOCRINE: Has glucose intolerance now resolved. No thyroid disorder. CARDIOVASCULAR: History of hypertension now improved. No recent heart attack or palpitations. She comes in with hypotension. MUSCULOSKELETAL: Has lower back pain. Also reports bilateral hip pain improved. NEURO: No reports of a headache or seizure disorders. PSYCH: Has new depression and mood disorder. HEMATOLOGIC: No bruising or bleeding. SKIN: Has panniculitis. No cancer. PHYSICAL EXAM: VITAL SIGNS: 5 foot 8-1/4, 279 pounds. Body mass index of 42.3 GENERAL: Well-developed female in no acute distress. HEENT: No sclerae icterus. Extraocular movements grossly intact. Moist buccal pink mucosa. NECK: Supple without lymphadenopathy. CHEST: Nonlabored respirations, equal bilateral excursions. CARDIOVASCULAR: Regular rate and rhythm. 2+ radial pulses ABDOMEN: Soft. Nondistended nontender. MUSCULOSKELETAL: No clubbing, or cyanosis. NEURO: No focal or lateralizing signs. Cranial nerves II through XII grossly within normal limits. PSYCH: Appropriate affect. Alert and oriented to person, place and time. SKIN: Well perfused. Good skin turgor. ASSESSMENT: 1. Morbid obesity due to excess caloric intake. 2. Body mass index of 57.5 down to 42.3 3. Obstructive sleep apnea. 4. Osteoarthritis of lower back, due to morbid obesity. 5. Gastroesophageal reflux disease. 6. Vitamin D deficiency. 7. Hypercholesterolemia. 8. Hypertriglyceridemia. 9. Hypertensive heart disease 10. Glucose intolerance. 11. Fatty food intolerance, resolved 12. Dietary surveillance and counseling. 13. Vitamin A deficiency 14. Iron deficiency anemia. 15. Metromenorrhagia 16. Status post gastric bypass 17. Gastrojejunal stricture with dysphagia, resolved 18. Right upper quadrant abdominal pain, resolved 19. Chronic cholecystitis, resolved 20. Zinc deficiency 21. Hypotension 22. Orthostatic hypotension 23. Panniculitis 24. Mood disorder PLAN: 1. Recommend cardiology tilt table test for new orthostatic hypotension. 2. Recommend Nystatin powder for panniculitis 3. Recommend bariatric labs 4. She comes in with mood disorder. Recommend referral to therapist Objective - Labs CBC & Chem 7: 07/30/19 16:04 07/30/19 16:04
[2019-07-30 16:46] LABS: HCT 40.4 % (34.0-46.0); MCH 31.2 pg (25.0-35.0); MCHC 32.2 g/dL (31.0-37.0); MCV 97.1 fL (80.0-100.0); Mean Platelet Volume 7.7; Platelet Count 301 k/uL (150-450); RBC 4.17 m/uL (3.80-5.40); RDW 12.2 % (11.5-15.5); WBC 6.4 k/uL (3.8-10.6)
[2019-07-30 16:55] LABS: INR 0.9 (<1.2); Partial Thromboplastin Time 25.9 sec (22.0-30.0); Prothrombin Time 9.6 sec (9.0-12.0)
[2019-07-31 00:41] LABS: % Iron Saturation 22.26 (12.00-45.00); African American GFR (CKD) 135.7 (60.0-200.0); Albumin 4.3 g/dL (3.80-4.90); Albumin/Globulin Ratio 2.05 (1.60-3.17); Anion Gap 9.3 mmol/L (4.00-12.00); BUN/Creat Ratio 14.29 Ratio (12.00-20.00); Calcium 9.4 mg/dL (8.7-10.3); Carbon Dioxide 24.7 mmol/L (21.6-31.8); Chol/HDL Ratio 3.7; Globulin 2.1 g/dL (1.6-3.3); Magnesium 1.6 mg/dL (1.5-2.4); Non-African American GFR(CKD) 117.1 (60.0-200.0); Phosphorus 4.1 mg/dL (2.4-5.1); Potassium 4.1 mmol/L (3.5-5.5); Total Bilirubin 0.5 mg/dL (0.3-1.2); Total Protein 6.4 g/dL (6.2-8.2)
[2019-07-31 00:52] LABS: Folate, Serum 6.6 ng/mL
[2019-07-31 00:59] LABS: Ferritin 19.5 ng/mL (10.0-291.0)
[2019-07-31 02:28] LABS: Hemoglobin A1C 4.9 % (4.0-6.0)
[2019-07-31 12:52] LABS: Zinc, Serum 63 ug/dL (60-130)
[2019-08-01 06:22] LABS: Vitamin A 35 ug/dL (38-106)
[2019-08-02 00:54] LABS: Selenium 115 mcg/L (63-160)
[2019-08-02 13:54] LABS: Vit B1(Thiamine) 59 ug/L (38-122)
== END | disposition home or self-care (01) ==
LOC: BARWHC3 15:47
PROVIDERS: ATTEND Surgery Plastic and Reconstructive Surgery
DX: E66.01 Morbid (severe) obesity due to excess calories (principal); Z68.41 Body mass index [BMI] 40.0-44.9, adult; G47.33 Obstructive sleep apnea (adult) (pediatric); K21.9 Gastro-esophageal reflux disease without esophagitis; E55.9 Vitamin D deficiency, unspecified; E78.00 Pure hypercholesterolemia, unspecified; E78.1 Pure hyperglyceridemia; I11.9 Hypertensive heart disease without heart failure; E74.39 Other disorders of intestinal carbohydrate absorption; Z71.3 Dietary counseling and surveillance; E50.9 Vitamin A deficiency, unspecified; D50.9 Iron deficiency anemia, unspecified; N92.1 Excessive and frequent menstruation with irregular cycle; E60 Dietary zinc deficiency; I95.1 Orthostatic hypotension; M79.3 Panniculitis, unspecified; F32.9 Major depressive disorder, single episode, unspecified; M47.816 Spondylosis without myelopathy or radiculopathy, lumbar region; Z87.891 Personal history of nicotine dependence; Z87.898 Personal history of other specified conditions; Z98.84 Bariatric surgery status; Z79.899 Other long term (current) drug therapy
CPT/HCPCS: 80053; 80061; 82306; 82525; 82607; 82728; 82746; 83036; 83540; 83550; 83735; 83970; 84100; 84134; 84255; 84425; 84443; 84590; 84630; 85027; 85610; 85730

== ENCOUNTER → 2019-08-13 | Outpatient (CLI) | payer OTHER ==
[2019-08-13 13:36] VITALS: BP 113/73; PULSE 74; RESP 16; TEMP 98.3; BMI 42.5
--- NOTE | 2019-08-13 13:52 | P.PN ---
Subjective Progress Note Date: 08/13/19 DATE OF SERVICE: 08/13/2019 CHIEF COMPLAINT: Status post gastric bypass HISTORY OF PRESENT ILLNESS: Araceli Fabian is a 28-year-old female status post gastric bypass 05/27/2018. She is over 1 year out. She reports dysphagia. She has vomiting more than 4 times weekly. She reports mild back pain. She is still using Nystatin for her panniculitis. She is looking into disability from her chronic knee pain. She is pending to see the data warehousing engineer for her heart. Also she reports change of nutrition with taking "Fat blaster" supplements. At her height of 5 feet 8-1/4 inches, she was 392 pounds. Her body mass index was 59.3. [place] body weight is 163 pounds. She comes in weighing 279 unchanged from 2 weeks ago. Her BMI 42.6. Lifetime weight loss 113 pounds. Lifetime percent excess weight loss is 49 %. PHYSICAL EXAM: VITAL SIGNS: 5 foot 8-1/4, 279 pounds. Body mass index of 42.3 Vital Signs Temp 98.3 F 08/13/19 13:34 Pulse 74 08/13/19 13:34 Resp 16 08/13/19 13:34 BP 113/73 08/13/19 13:34 Pulse Ox GENERAL: Well-developed female in no acute distress. HEENT: No sclerae icterus. Extraocular movements grossly intact. Moist buccal pink mucosa. NECK: Supple without lymphadenopathy. CHEST: Nonlabored respirations, equal bilateral excursions. CARDIOVASCULAR: Regular rate and rhythm. 2+ radial pulses ABDOMEN: Soft. Nondistended nontender. MUSCULOSKELETAL: No clubbing, or cyanosis. NEURO: No focal or lateralizing signs. Cranial nerves II through XII grossly within normal limits. PSYCH: Appropriate affect. Alert and oriented to person, place and time. SKIN: Well perfused. Good skin turgor. LABS: Reviewed. Pre-albumin is low. Vitamin A is low. Vitamin D is low. ASSESSMENT: 1. Morbid obesity due to excess caloric intake. 2. Body mass index of 57.5 down to 42.6 3. Obstructive sleep apnea. 4. Osteoarthritis of lower back, due to morbid obesity. 5. Gastroesophageal reflux disease. 6. Vitamin D deficiency. 7. Hypercholesterolemia. 8. Hypertriglyceridemia. 9. Hypertensive heart disease 10. Glucose intolerance. 11. Fatty food intolerance, resolved 12. Dietary surveillance and counseling. 13. Vitamin A deficiency 14. Iron deficiency anemia, resolved 15. Metromenorrhagia 16. Status post gastric bypass 17. Gastrojejunal stricture with dysphagia, resolved 18. Right upper quadrant abdominal pain, resolved 19. Chronic cholecystitis, resolved 20. Zinc deficiency, resolved 21. Hypotension 22. Orthostatic hypotension 23. Panniculitis 24. Mood disorder 25. Dysphagia PLAN: 1. Recommend EGD for dysphaiga 2. Recommend Vitamin A and D supplement 10,000 units daily 3. Recommend see PCP for her joint disorder and referral to orthopedics regarding disability. Objective - Vital Signs Vital signs: Vital Signs Temp 98.3 F 08/13/19 13:34 Pulse 74 08/13/19 13:34 Resp 16 08/13/19 13:34 BP 113/73 08/13/19 13:34 Pulse Ox Intake & Output 08/12/19 08/13/19 08/13/19 18:59 06:59 18:59 Weight 127.006 kg
== END | disposition home or self-care (01) ==
LOC: BARWHC3 12:40
PROVIDERS: ATTEND Surgery Plastic and Reconstructive Surgery
DX: E66.01 Morbid (severe) obesity due to excess calories (principal); G47.33 Obstructive sleep apnea (adult) (pediatric); M47.816 Spondylosis without myelopathy or radiculopathy, lumbar region; K21.9 Gastro-esophageal reflux disease without esophagitis; E55.9 Vitamin D deficiency, unspecified; I11.9 Hypertensive heart disease without heart failure; E78.00 Pure hypercholesterolemia, unspecified; E78.1 Pure hyperglyceridemia; E74.39 Other disorders of intestinal carbohydrate absorption; E50.9 Vitamin A deficiency, unspecified; N92.1 Excessive and frequent menstruation with irregular cycle; I95.9 Hypotension, unspecified; I95.1 Orthostatic hypotension; F39 Unspecified mood [affective] disorder; Z98.84 Bariatric surgery status; Z68.41 Body mass index [BMI] 40.0-44.9, adult
CPT/HCPCS: 99211

== ENCOUNTER → 2021-01-12 | Outpatient (CLI) | payer OTHER ==
[2021-01-12 15:05] VITALS: BP 111/74; PULSE 76; RESP 16; TEMP 98.1; BMI 41.5
--- NOTE | 2021-01-12 15:41 | P.PN ---
Subjective Progress Note Date: 01/12/21 DATE OF SERVICE: 01/12/2021 CHIEF COMPLAINT: Status post gastric bypass HISTORY OF PRESENT ILLNESS: Araceli Fabian is a 28-year-old female status post gastric bypass 05/27/2018. She is over 3 years out. She presents today with new right upper quadrant abdominal pain. She reports weight gain then loss during the COVID pandemic. Her lowest weight was 260 pounds. She has experienced weight regain of 12 pounds. She is looking into skin removal surgery as she reports back pain from her pannus. 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 She comes in tearful. She now has numbness along her back. Additionally, she has new nausea and vomiting. She presents in consultation for abdominal pain, panniculitis, and dysphagia. At her height of 5 feet 8-1/4 inches, she was 392 pounds. Her body mass index was 59.3. [place] body weight is 163 pounds. She comes in weighing 272 pounds from 279 pounds from 1 year ago. She has lost 7 pounds in 1 year. Her lowest weight was 260 pounds. Her BMI 41.6. Lifetime weight loss 120 pounds. Lifetime percent excess weight loss is 52 %. PAST MEDICAL HISTORY: 1. Morbid obesity, highest BMI 59.3 2. Hypertension. 3. History of gastric ulcers. 4. Diabetes type 2, diet controlled. 5. Osteoarthritis of the lower back. 6. Obstructive sleep apnea 7. Gastroesophageal reflux disease PAST SURGICAL HISTORY: 1. Upper endoscopy. 2. Myringotomy, tubes in the ear. 3. Gastric bypass MEDICATIONS: Home Medications Medication Instructions Recorded Confirmed Omeprazole [PriLOSEC] 40 mg PO DIRECTED PRN 02/08/18 02/23/21 True Vision 2 tab PO BID 05/12/19 02/23/21 Cholecalciferol (Vitamin D3) 250 mcg PO DAILY 01/12/21 02/23/21 [Vitamin D3 (5000 Iu)] Multivit with Calcium,Iron,Min 1 each PO DAILY 01/12/21 02/23/21 [Women's Multivitamin] Nystatin 100,000 Unit/gm Powd 1 applic TOPICAL BID PRN 01/12/21 02/23/21 [Mycostatin Powder] [place]-3/Dha/Epa/Fish Oil [Fish Oil 1 each PO DAILY 01/12/21 02/23/21 500 mg Softgel] Vitamin C/Biotin [Hair, Skin and 1 tab PO DAILY 01/12/21 02/23/21 Nails Chew] Vitamin A [Vitamin A (8,000 Units 02/23/21 = 2,400 MCG)] Zinc 02/23/21 ALLERGIES: Allergies Allergy/AdvReac Type Severity Reaction Status Date / Time hydromorphone [From Dilaudid] AdvReac Nausea Verified 08/13/19 14:03 SOCIAL HISTORY: History of tobacco use. History of recreational marijuana use. FAMILY HISTORY: Notable for obesity. She also has a family history of diabetes. She denies any familial history of ulcerative colitis or Crohn's disease. She denies any stomach cancers in her family. She does have history of her mother dying of pulmonary embolism. REVIEW OF SYSTEMS: CONSTITUTIONAL: At her height of 5 feet 8-1/4 inches, she was 392 pounds. Her body mass index was 59.3. [place] body weight is 163 pounds. RESPIRATORY: Has obstructive sleep apnea now resolved. No recent pneumonias GASTROINTESTINAL: History of gastroesophageal reflux disease now resolved HEENT: No troubles with vision or hearing. Denies dysphagia. ENDOCRINE: Has glucose intolerance now resolved. No thyroid disorder. CARDIOVASCULAR: History of hypertension now improved. No recent heart attack or palpitations. She comes in with hypotension. MUSCULOSKELETAL: Has lower back pain. Also reports bilateral hip pain improved. NEURO: No reports of a headache or seizure disorders. PSYCH: Has new depression and mood disorder. HEMATOLOGIC: No bruising or bleeding. SKIN: Has panniculitis. No cancer. PHYSICAL EXAM: VITAL SIGNS: 5 foot 8-1/4, 272 pounds. Body mass index of 41.5 Vital Signs Temp 98.1 F 01/12/21 15:03 Pulse 76 01/12/21 15:03 Resp 16 01/12/21 15:03 BP 111/74 01/12/21 15:03 Pulse Ox GENERAL: Well-developed female in no acute distress. HEENT: No sclerae icterus. Extraocular movements grossly intact. Moist buccal pink mucosa. NECK: Supple without gross lymphadenopathy. CHEST: Nonlabored respirations, equal bilateral excursions. CARDIOVASCULAR: Regular rate and rhythm. 2+ radial pulses ABDOMEN: Soft. Nondistended. Grade 3 panniculosis with panniculitis. MUSCULOSKELETAL: No clubbing, or cyanosis. NEURO: No focal or lateralizing signs. Cranial nerves II through XII grossly within normal limits. PSYCH: Tearful. Alert and oriented to person, place and time. SKIN: Well perfused. Good skin turgor. ASSESSMENT: 1. Morbid obesity due to excess caloric intake. 2. Body mass index of 57.5 down to 41.5 3. Obstructive sleep apnea. 4. Osteoarthritis of lower back, due to morbid obesity. 5. Gastroesophageal reflux disease. 6. Vitamin D deficiency. 7. Hypercholesterolemia. 8. Hypertriglyceridemia. 9. Hypertensive heart disease 10. Glucose intolerance. 11. Fatty food intolerance, resolved 12. Dietary surveillance and counseling. 13. Vitamin A deficiency 14. Iron deficiency anemia, resolved 15. Metromenorrhagia 16. Status post gastric bypass 17. Panniculitis Mood disorder 18. Dysphagia 19. Right upper quadrant abdominal pain. 20. Radiculopathy PLAN: 1. Recommend seeing orthopedic provider for her new radiculopathy and back pain. 2. Recommend bariatric labs for nutritional deficiences. 3. Recommend upper endoscopy for dysphagia. She is elevated risk with stricture and gastric bypass for perforation. 4. May need diagnostic laparoscopy for abdominal pain pending further studies. Objective - Vital Signs Vital signs: Vital Signs Temp 98.1 F 01/12/21 15:03 Pulse 76 01/12/21 15:03 Resp 16 01/12/21 15:03 BP 111/74 01/12/21 15:03 Pulse Ox Intake & Output 01/11/21 01/12/21 01/12/21 18:59 06:59 18:59 Weight 123.831 kg - Labs CBC & Chem 7: 01/12/21 16:12 01/12/21 16:12
[2021-01-12 17:06] LABS: HCT 38.3 % (34.0-46.0); MCH 31.8 pg (25.0-35.0); MCHC 33.8 g/dL (31.0-37.0); MCV 93.9 fL (80.0-100.0); Mean Platelet Volume 7.3; Platelet Count 266 k/uL (150-450); RBC 4.08 m/uL (3.80-5.40); RDW 12.6 % (11.5-15.5)
[2021-01-13 00:14] LABS: Hemoglobin A1C 5.3 % (4.0-6.0)
[2021-01-13 01:17] LABS: % Iron Saturation 18.64 (12.00-45.00); African American GFR (CKD) 87.5 (60.0-200.0); Albumin 4.3 g/dL (3.80-4.90); Albumin/Globulin Ratio 1.87 (1.60-3.17); Anion Gap 8.1 mmol/L (4.00-12.00); Calcium 9.2 mg/dL (8.7-10.3); Carbon Dioxide 25.9 mmol/L (21.6-31.8); Chol/HDL Ratio 4.02; Globulin 2.3 g/dL (1.6-3.3); LDL Cholesterol,Calculated 115.6 mg/dL (0.0-131.0); Magnesium 1.8 mg/dL (1.5-2.4); Non-African American GFR(CKD) 75.5 (60.0-200.0); Phosphorus 4.3 mg/dL (2.4-5.1); Potassium 4.5 mmol/L (3.5-5.5); Total Bilirubin 0.4 mg/dL (0.3-1.2); Total Protein 6.6 g/dL (6.2-8.2); VLDL Calculation 17.4 mg/dL (5.00-40.00)
[2021-01-13 04:29] LABS: Ferritin 11.9 ng/mL (10.0-291.0)
[2021-01-13 08:05] LABS: INR 0.9 (0.90-1.11); Partial Thromboplastin Time 28.2 sec (23.5-31.0); Prothrombin Time 9.9 sec (9.9-11.9)
[2021-01-13 13:32] LABS: Zinc, Serum 58 ug/dL (60-130)
[2021-01-14 09:01] LABS: Vitamin A 34 ug/dL (38-106)
[2021-01-14 09:06] LABS: Vit B1(Thiamine) 59 ug/L (38-122)
[2021-01-17 19:57] LABS: Selenium 95 mcg/L (63-160)
== END ==
LOC: BARWHC3 14:53
PROVIDERS: ATTEND Surgery Plastic and Reconstructive Surgery
DX: E66.01 Morbid (severe) obesity due to excess calories (principal); E11.9 Type 2 diabetes mellitus without complications; E55.9 Vitamin D deficiency, unspecified; E78.00 Pure hypercholesterolemia, unspecified; E78.1 Pure hyperglyceridemia; F39 Unspecified mood [affective] disorder; G47.33 Obstructive sleep apnea (adult) (pediatric); I11.9 Hypertensive heart disease without heart failure; K21.9 Gastro-esophageal reflux disease without esophagitis; K90.49 Malabsorption due to intolerance, not elsewhere classified; M19.90 Unspecified osteoarthritis, unspecified site; M79.3 Panniculitis, unspecified; N92.1 Excessive and frequent menstruation with irregular cycle; M47.9 Spondylosis, unspecified; E50.9 Vitamin A deficiency, unspecified; M54.10 Radiculopathy, site unspecified; Z71.3 Dietary counseling and surveillance; Z79.899 Other long term (current) drug therapy; Z68.41 Body mass index [BMI] 40.0-44.9, adult; Z88.5 Allergy status to narcotic agent; Z98.84 Bariatric surgery status
CPT/HCPCS: 84255; 84134; 84425; 80061; 80053; 82607; 82728; 82525; 82746; 83540; 83550; 83735; 84100; 84443; 84590; 84630; 85027; 85610; 85730; 82306; 83970; 83036; G0463; 99211

== ENCOUNTER 2021-02-23 08:52 | Day surgery (SDC) | payer OTHER ==
--- NOTE | 2021-02-23 09:02 | P.GSHP ---
History of Present Illness H&P Date: 02/23/21 CHIEF COMPLAINT: GERD HISTORY OF PRESENT ILLNESS: The patient is a 31-year-old female who presents reports gastroesophageal reflux disease. Upper endoscopy was offered for further evaluation and management. PAST MEDICAL HISTORY: Please see list. PAST SURGICAL HISTORY: Please see list. MEDICATIONS: Please see list. ALLERGIES: Please see list. SOCIAL HISTORY: No illicit drug use FAMILY HISTORY: No reports of Crohn disease or ulcerative colitis. REVIEW OF ORGAN SYSTEMS: CONSTITUTIONAL: No reports of fevers or chills. GI: Denies any blood in stools or constipation. PHYSICAL EXAM: VITAL SIGNS: Stable GENERAL: Well-developed and pleasant in no acute distress. HEENT: No scleral icterus. Extraocular movements grossly intact. Moist buccal mucosa. NECK: Supple without lymphadenopathy. CHEST: Unlabored respirations. Equal bilateral excursions. CARDIOVASCULAR: Regular rate and rhythm. Distal 2+ pulses. ABDOMEN: Soft, nondistended. MUSCULOSKELETAL: No clubbing, cyanosis, or edema. ASSESSMENT: 1. Gastroesophageal reflux disease PLAN: 1. Recommend proceeding with an upper endoscopy Past Medical History Past Medical History: GERD/Reflux, Sleep Apnea/CPAP/BIPAP Additional Past Medical History / Comment(s): BACK PAIN, PCOS, MENSTRUAL PERIODS LENGTHY/HEAVY/IRREG, LOW IRON. HIRSUTISM -(WAS ON SPIRONOLACTONE FOR THIS). STOMACH ULCERS. HAS BROKEN TOOTH. SLEEP APNEA (NO MACHINE). Anemia-hx iron i nfusions (heavy menstural periods, have resulted in hospitalizations for anemia) History of Any Multi-Drug Resistant Organisms: None Reported Past Surgical History: Bariatric Surgery, Cholecystectomy, Ear Surgery Additional Past Surgical History / Comment(s): TUBES IN EARS (CHILD), EGD, [place] (gastric bypass) 05/27/18; EGD W/ DILATATION 08/15/18. Past Anesthesia/Blood Transfusion Reactions: Postoperative Nausea & Vomiting (PONV) Past Psychological History: Anxiety, Depression Additional Psychological History / Comment(s): NO CURRENT [place] Smoking Status: Former smoker Past Alcohol Use History: None Reported Additional Past Alcohol Use History / Comment(s): QUIT SMOKING January. SMOKED 1/2 PPD. STARTED SMOKING AGE 13. Past Drug Use History: Marijuana Additional Drug Use History / Comment(s): DAILY USE - Past Family History Mother Family Medical History: Cancer, Myocardial Infarction ([place]), Pulmonary Embolus Additional Family Medical History / Comment(s): at age 45 from PE (secondary to [place]) Father Family Medical History: Diabetes Mellitus Additional Family Medical History / Comment(s): at age 33 secondary to complications of DM; pt states her father had gangrene and osteomylitis. Gangrene led to sepsis and his . Medications and Allergies Home Medications Medication Instructions Recorded Confirmed Type Omeprazole [PriLOSEC] 40 mg PO DIRECTED PRN 02/08/18 01/12/21 History True Vision 2 tab PO BID 05/12/19 01/12/21 History Cholecalciferol (Vitamin D3) 250 mcg PO DAILY 01/12/21 01/12/21 History [Vitamin D3 (5000 Iu)] Multivit with Calcium,Iron,Min 1 each PO DAILY 01/12/21 01/12/21 History [Women's Multivitamin] Nystatin 100,000 Unit/gm Powd 1 applic TOPICAL BID PRN 01/12/21 01/12/21 History [Mycostatin Powder] [place]-3/Dha/Epa/Fish Oil [Fish Oil 1 each PO DAILY 01/12/21 01/12/21 History 500 mg Softgel] Vitamin C/Biotin [Hair, Skin and 1 tab PO DAILY 01/12/21 01/12/21 History Nails] Allergies Allergy/AdvReac Type Severity Reaction Status Date / Time hydromorphone [From Dilaudid] AdvReac Nausea Verified 08/13/19 14:03
[2021-02-23 09:30] VITALS: RESP 16; TEMP 97.2
[2021-02-23] MEDS ORDERED: LACTATED RINGERS 1,000 ML IV ONE (09:39)
[2021-02-23] MEDS ORDERED: LIDOCAINE 1% INJ 10MG/ML (20 ML MDV) ONE (10:23)
[2021-02-23] MEDS ORDERED: MIDAZOLAM 2 MG/2 ML VIAL ONE (10:23)
[2021-02-23] MEDS ORDERED: PROPOFOL 10 MG/ML 20 ML VIAL IV ONE (10:23)
--- NOTE | 2021-02-23 10:44 | P.PCN ---
Date of Procedure: 02/23/21 Description of Procedure: PREOPERATIVE DIAGNOSES: 1. Epigastric abdominal pain. 2. Nausea and vomiting. 3. History of gastric bypass. POSTOPERATIVE DIAGNOSES: 1. Epigastric abdominal pain. 2. Nausea and vomiting. 3. History of gastric bypass. PROCEDURE PERFORMED: Esophagogastrojejunoscopy. SURGEON: Jahaira Yates MD ANESTHESIA: MAC. INDICATIONS: The patient is a 31-year-old male with prior history of Reno-en-Y gastric bypass. In the last several weeks, she has had intermittent nausea and vomiting, particularly of the epigastric abdominal pain. With her history of Reno-en-Y gastric bypass, upper endoscopy was offered for further evaluation and management. DESCRIPTION: Patient was brought to the endoscopy suite and laid in the left lateral decubitus position. After adequate IV sedation, a bite block was placed. An Olympus gastroscope was passed along the posterior oropharynx down to the distal esophagus where the squamocolumnar junction was found at approximately 40 cm from the incisors. The anastomosis was found at 45 cm, consistent with approximately 5 cm gastric pouch. The scope was advanced 60 cm from the incisors. No evidence of foreign body was found. No evidence of active gastrojejunal ulcerations were encountered. The GI tract was desufflated. The patient tolerated the procedure well. FINDINGS: 1. No acute gastrojejunal ulceration. 2. No foreign body found along the anastomosis. PLAN: 1. Recommend upper endoscopy as needed. 2. May benefit from additional studies with history of epigastric abdominal pain such as upper GI barium study. Plan - Discharge Summary New Discharge Prescriptions: Continue RX: Omeprazole [PriLOSEC] 40 mg PO DIRECTED PRN PRN Reason: Heartburn True Vision 2 tab PO BID RX: Vitamin C/Biotin [Hair, Skin and Nails] 1 tab PO DAILY RX: Gobles-3/Dha/Epa/Fish Oil [Fish Oil 500 mg Softgel] 1 each PO DAILY RX: Multivit with Calcium,Iron,Min [Women's Multivitamin] 1 each PO DAILY RX: Zinc RX: Vitamin A [Vitamin A (8,000 Units = 2,400 MCG)] RX: Nystatin 100,000 Unit/gm Powd [Mycostatin Powder] 1 applic TOPICAL BID PRN PRN Reason: Rash RX: Cholecalciferol (Vitamin D3) [Vitamin D3 (5000 Iu)] 250 mcg PO DAILY Discharge Medication List RX: Omeprazole [PriLOSEC] 40 mg PO DIRECTED PRN 02/08/18 [History] True Vision 2 tab PO BID 05/12/19 [History] RX: Cholecalciferol (Vitamin D3) [Vitamin D3 (5000 Iu)] 250 mcg PO DAILY 01/12/21 [History] RX: Multivit with Calcium,Iron,Min [Women's Multivitamin] 1 each PO DAILY 01/12/21 [History] RX: Nystatin 100,000 Unit/gm Powd [Mycostatin Powder] 1 applic TOPICAL BID PRN 01/12/21 [History] RX: Gobles-3/Dha/Epa/Fish Oil [Fish Oil 500 mg Softgel] 1 each PO DAILY 01/12/21 [History] RX: Vitamin C/Biotin [Hair, Skin and Nails] 1 tab PO DAILY 01/12/21 [History] RX: Vitamin A [Vitamin A (8,000 Units = 2,400 MCG)] 02/23/21 [History] RX: Zinc 02/23/21 [History] Follow up [facility]ment(s[facility] [place] [facility] - 03[facility]02/21 Patient Instructions/Handouts: Gastroesophageal Reflux Disease (DC) Discharge Disposition: HOME SELF-CARE
[2021-02-23] MEDS ORDERED: LACTATED RINGERS 1,000 ML IV SCH (10:48)
[2021-02-23 11:40] VITALS: BP 99/72; PULSE 77
== END 2021-02-23 11:44 | disposition home or self-care (01) ==
LOC: ORWHC2ENDO 08:52
PROVIDERS: ATTEND Surgery Plastic and Reconstructive Surgery
DX: K21.9 Gastro-esophageal reflux disease without esophagitis (principal); G47.30 Sleep apnea, unspecified; E28.2 Polycystic ovarian syndrome; Z87.11 Personal history of peptic ulcer disease; D50.9 Iron deficiency anemia, unspecified; N92.0 Excessive and frequent menstruation with regular cycle; Z98.84 Bariatric surgery status; Z90.49 Acquired absence of other specified parts of digestive tract; Z98.890 Other specified postprocedural states; F41.9 Anxiety disorder, unspecified; F32.9 Major depressive disorder, single episode, unspecified; Z87.891 Personal history of nicotine dependence; Z83.3 Family history of diabetes mellitus; Z79.899 Other long term (current) drug therapy; Z88.5 Allergy status to narcotic agent
CPT/HCPCS: 81025; 43235; J2250; J2001; J2704

== ENCOUNTER 2022-04-25 11:48 | Observation (INO) | payer OTHER ==
[2022-04-25] MEDS ORDERED: SODIUM CHLORIDE 0.9% 500 ML 500 ML IV STA (12:33)
[2022-04-25 12:46] LABS: Basophils % (A) 0 %; Eosinophils % (A) 1 %; HCT 30.4 % (34.0-46.0); HGB 10.3 gm/dL (11.4-16.0); Lymphocytes # (A) 1.4 k/uL (1.0-4.8); Lymphocytes % (A) 31 %; MCH 32.6 pg (25.0-35.0); MCHC 33.8 g/dL (31.0-37.0); MCV 96.3 fL (80.0-100.0); Mean Platelet Volume 8.3; Monocytes # (A) 0.2 k/uL (0-1.0); Monocytes % (A) 5 %; Neutrophils # (A) 2.7 k/uL (1.3-7.7); Neutrophils % (A) 61 %; Platelet Count 253 k/uL (150-450); RBC 3.15 m/uL (3.80-5.40); RDW 12.7 % (11.5-15.5); WBC 4.5 k/uL (3.8-10.6)
--- NOTE | 2022-04-25 12:53 | ED ---
General Adult HPI - General Chief complaint: Abdominal Pain Stated complaint: poss GI bleed - post op Time Seen by Provider: 04/25/22 12:00 Source: patient, RN notes reviewed, old records reviewed Mode of arrival: ambulatory Limitations: no limitations - History of Present Illness Initial comments: This is a 32-year-old female who presents emergency Department complaining that she has a GI bleed. Patient states she had seen Dr. Mathew in the past for gallbladder as well as bariatric surgery. That was in 2019. Patient states she started feeling weak little lightheaded and having black stools so she went to another hospital and she was transferred to [facility]. Patient's hemoglobin there was 8 they wanted to keep her in the hospital but she signed out AMA because she wanted to come here. Patient states she doesn't have any abdominal pain she just has a bloated type feeling. Patient states she continues to black stools. Patient denies any vomiting or diarrhea. Patient denies any shortness of breath or chest pain. Patient denies any palpitations. Patient states she was noted her hands to be a little more swollen than normal - Related Data Home Medications Medication Instructions Recorded Confirmed Omeprazole [PriLOSEC] 40 mg PO DIRECTED PRN 02/08/18 04/27/21 True Vision 2 tab PO BID 05/12/19 04/27/21 Cholecalciferol (Vitamin D3) 250 mcg PO DAILY 01/12/21 04/27/21 [Vitamin D3 (5000 Iu)] Multivit with Calcium,Iron,Min 1 each PO DAILY 01/12/21 04/27/21 [Women's Multivitamin] Nystatin 100,000 Unit/gm Powd 1 applic TOPICAL BID PRN 01/12/21 04/27/21 [Mycostatin Powder] Buckhorn-3/Dha/Epa/Fish Oil [Fish Oil 1 each PO DAILY 01/12/21 04/27/21 500 mg Softgel] Vitamin C/Biotin [Hair, Skin and 1 tab PO DAILY 01/12/21 04/27/21 Nails Chew] Magnesium 200 mg PO DAILY 04/27/21 04/27/21 Potassium Citrate [Potassium 10 meq PO DAILY 04/27/21 04/27/21 Citrate ER] Turmeric Root Extract [Turmeric] 500 mg PO DAILY 04/27/21 04/27/21 Vitamin A [Vitamin A (8,000 Units 2,400 mcg PO DAILY 04/27/21 04/27/21 = 2,400 MCG)] Zinc 50 mg PO DAILY 04/27/21 04/27/21 Previous Rx's Medication Instructions Recorded Nystatin 100,000 Unit/gm Powd 1 applic TOPICAL BID #60 gm 04/27/21 [Mycostatin Powder] Allergies Allergy/AdvReac Type Severity Reaction Status Date / Time hydromorphone [From Dilaudid] AdvReac Nausea Verified 04/25/22 11:59 Review of Systems ROS Statement: Those systems with pertinent positive or pertinent negative responses have been documented in the HPI. ROS Other: All systems not noted in ROS Statement are negative. Past Medical History Past Medical History: GERD/Reflux, Sleep Apnea/CPAP/BIPAP Additional Past Medical History / Comment(s): BACK PAIN, PCOS, MENSTRUAL PERIODS LENGTHY/HEAVY/IRREG, LOW IRON. HIRSUTISM -(WAS ON SPIRONOLACTONE FOR THIS). STOMACH ULCERS. HAS BROKEN TOOTH. SLEEP APNEA (NO MACHINE). Anemia-hx iron infusions (heavy menstural periods, have resulted in hospitalizations for anemia) History of Any Multi-Drug Resistant Organisms: None Reported Past Surgical History: Bariatric Surgery, Cholecystectomy, Ear Surgery Additional Past Surgical History / Comment(s): TUBES IN EARS (CHILD), EGD, Reno-en-Y (gastric bypass) 05/27/18; EGD W/ DILATATION 08/15/18. Past Anesthesia/Blood Transfusion Reactions: Postoperative Nausea & Vomiting (PONV) Past Psychological History: Anxiety, Depression Smoking Status: Former smoker - Past Family History Mother Family Medical History: Cancer, Myocardial Infarction ([place]), Pulmonary Embolus Additional Family Medical History / Comment(s): at age 45 from PE (secondary to [place]) Father Family Medical History: Diabetes Mellitus Additional Family Medical History / Comment(s): at age 33 secondary to complications of DM; pt states her father had gangrene and osteomylitis. Gangrene led to sepsis and his . General Exam - General Exam Comments Initial Comments: GENERAL: Patient is well-developed and well-nourished. Patient is nontoxic and well- hydrated and is in mild distress. ENT: Neck is soft and supple. No significant lymphadenopathy is noted. Oropharynx is clear. Moist mucous membranes. Neck has full range of motion without eliciting any pain. EYES: The sclera were anicteric and conjunctiva are mildly pale. Extraocular movements were intact and pupils were equal round and reactive to light. Eyelids were unremarkable. PULMONARY: Unlabored respirations. Good breath sounds bilaterally. No audible rales rhonchi or wheezing was noted. CARDIOVASCULAR: There is a regular rate and rhythm without any murmurs gallops or rubs. ABDOMEN: Soft and nontender with normal bowel sounds. No palpable organomegaly was noted. There is no palpable pulsatile mass. SKIN: Slightly pale NEUROLOGIC: Patient is alert and oriented x3. Cranial nerves II through XII are grossly intact. Motor and sensory are also intact. Normal speech, volume and content. Symmetrical smile. MUSCULOSKELETAL: Normal extremities with adequate strength and full range of motion. No lower extremity swelling or edema. No calf tenderness. LYMPHATICS: No significant lymphadenopathy is noted PSYCHIATRIC: Normal psychiatric evaluation. Limitations: no limitations Course Vital Signs 04/25/22 11:55 Temperature 98.2 F Pulse Rate 93 Respiratory 16 Rate Blood Pressure 115/81 O2 Sat by Pulse 100 Oximetry Medical Decision Making - Medical Decision Making I spoke with Dr. Mathew she agreed to admit the patient admitted the patient The patient on clear liquids. I repeated CBCs every 6 hours. - Lab Data Result diagrams: 04/25/22 12:24 04/25/22 12:24 Lab Results 04/25/22 04/25/22 04/25/22 Range/Units 12:24 12:24 12:24 WBC 4.5 (3.8-10.6) k/uL RBC 3.15 L (3.80-5.40) m/uL Hgb 10.3 L (11.4-16.0) gm/dL Hct 30.4 L (34.0-46.0) % MCV 96.3 (80.0-100.0) fL MCH 32.6 (25.0-35.0) pg MCHC 33.8 (31.0-37.0) g/dL RDW 12.7 (11.5-15.5) % Plt Count 253 (150-450) k/uL MPV 8.3 Neutrophils % 61 % Lymphocytes % 31 % Monocytes % 5 % Eosinophils % 1 % Basophils % 0 % Neutrophils # 2.7 (1.3-7.7) k/uL Lymphocytes # 1.4 (1.0-4.8) k/uL Monocytes # 0.2 (0-1.0) k/uL Eosinophils # 0.0 (0-0.7) k/uL Basophils # 0.0 (0-0.2) k/uL PT 10.7 (9.0-12.0) sec INR 1.0 (<1.2) APTT 23.7 (22.0-30.0) sec Sodium 139 (137-145) mmol/L Potassium 4.0 (3.5-5.1) mmol/L Chloride 110 H (98-107) mmol/L Carbon Dioxide 22 (22-30) mmol/L Anion Gap 7 mmol/L BUN 17 (7-17) mg/dL Creatinine 0.53 (0.52-1.04) mg/dL Est GFR (CKD-EPI)AfAm >90 (>60 ml/min/1.73 sqM) Est GFR (CKD-EPI)NonAf >90 (>60 ml/min/1.73 sqM) Glucose 86 (74-99) mg/dL Calcium 8.6 (8.4-10.2) mg/dL Magnesium 1.8 (1.6-2.3) mg/dL Total Bilirubin 0.9 (0.2-1.3) mg/dL AST 23 (14-36) U/L ALT 20 (4-34) U/L Alkaline Phosphatase 50 (38-126) U/L Troponin I (0.000-0.034) ng/mL Total Protein 6.0 L (6.3-8.2) g/dL Albumin 3.8 (3.5-5.0) g/dL 04/25/22 Range/Units 12:24 WBC (3.8-10.6) k/uL RBC (3.80-5.40) m/uL Hgb (11.4-16.0) gm/dL Hct (34.0-46.0) % MCV (80.0-100.0) fL MCH (25.0-35.0) pg MCHC (31.0-37.0) g/dL RDW (11.5-15.5) % Plt Count (150-450) k/uL MPV Neutrophils % % Lymphocytes % % Monocytes % % Eosinophils % % Basophils % % Neutrophils # (1.3-7.7) k/uL Lymphocytes # (1.0-4.8) k/uL Monocytes # (0-1.0) k/uL Eosinophils # (0-0.7) k/uL Basophils # (0-0.2) k/uL PT (9.0-12.0) sec INR (<1.2) APTT (22.0-30.0) sec Sodium (137-145) mmol/L Potassium (3.5-5.1) mmol/L Chloride (98-107) mmol/L Carbon Dioxide (22-30) mmol/L Anion Gap mmol/L BUN (7-17) mg/dL Creatinine (0.52-1.04) mg/dL Est GFR (CKD-EPI)AfAm (>60 ml/min/1.73 sqM) Est GFR (CKD-EPI)NonAf (>60 ml/min/1.73 sqM) Glucose (74-99) mg/dL Calcium (8.4-10.2) mg/dL Magnesium (1.6-2.3) mg/dL Total Bilirubin (0.2-1.3) mg/dL AST (14-36) U/L ALT (4-34) U/L Alkaline Phosphatase (38-126) U/L Troponin I <0.012 (0.000-0.034) ng/mL Total Protein (6.3-8.2) g/dL Albumin (3.5-5.0) g/dL Disposition Clinical Impression: GI bleed Disposition: ADMITTED IP TO THIS [facility] Referrals: Jose Kaba DO [Primary Care Provider] - 1-2 days Time of Disposition: 13:27
[2022-04-25 12:57] LABS: Partial Thromboplastin Time 23.7 sec (22.0-30.0); Prothrombin Time 10.7 sec (9.0-12.0)
[2022-04-25 12:59] LABS: ALT 20 U/L (4-34); AST 23 U/L (14-36); African American GFR (CKD) >90 (>60 ml/min/1.73 sqM); Albumin 3.8 g/dL (3.5-5.0); Alkaline Phosphatase 50 U/L (38-126); Anion Gap 7 mmol/L; Blood Urea Nitrogen 17 mg/dL (7-17); Calcium 8.6 mg/dL (8.4-10.2); Carbon Dioxide 22 mmol/L (22-30); Chloride 110 mmol/L (98-107); Glucose 86 mg/dL (74-99); Magnesium 1.8 mg/dL (1.6-2.3); Non-African American GFR(CKD) >90 (>60 ml/min/1.73 sqM); Sodium 139 mmol/L (137-145); Total Bilirubin 0.9 mg/dL (0.2-1.3)
[2022-04-25] MEDS ORDERED: SODIUM CHLORIDE 0.9% 1,000 ML IV ONE (13:36)
[2022-04-25] MEDS: PANTOPRAZOLE 40 MG/10 ML VIAL IVP SCH ×2 (14:27→21:19)
--- NOTE | 2022-04-25 14:58 | P.GSHP ---
History of Present Illness H&P Date: 04/25/22 CHIEF COMPLAINT: Abdominal pain HISTORY OF PRESENT ILLNESS: This is a 32-year-old female with a known surgical history of Reno-en-Y in 2018 and cholecystectomy. Patient presents to the emergency department with concerns of possible GI bleed. Patient had been at 3 other hospitals. She did sign herself out AMA at [facility] because she [facility] due to her previous surgeries. Patient reports that she's been having black stools for about 2 days. She does complain of lower abdominal pain and pain on the left side of the abdomen that does go up into the chest. Patient also reports a CAT scan was completed at the [facility] facility that had showed evidence of mild diverticulitis. Her abdominal pain has improved. She does report taking naproxen at home. She denies any nausea or vomiting. PAST MEDICAL HISTORY: See list. PAST SURGICAL HISTORY: See list. MEDICATIONS: See list. ALLERGIES: See list. SOCIAL HISTORY: No illicit drug use. REVIEW OF SYSTEMS: CONSTITUTIONAL: Denies fever or chills. HEENT: Denies blurred vision, vision changes, or eye pain. Denies hemoptysis ENDOCRINE: Denies heat or cold intolerance. CARDIOVASCULAR: Denies chest pain or pressure. RESPIRATORY: No shortness of breath. GASTROINTESTINAL: Please refer to HPI otherwise unremarkable NEURO: Denies history of seizures. PSYCH: No depression or suicidal ideation HEMATOLOGIC: Denies bleeding disorders. LYMPHATIC: The patient denies any lumps and bumps around the neck. GENITOURINARY: Denies any blood in urine or increased urinary frequency. MUSCULOSKELETAL: Denies myalgias. Denies joint swelling. Denies decreased range of motion beyond patients baseline. SKIN: Denies pruitis. Denies rash. PHYSICAL EXAM: VITAL SIGNS: Reviewed GENERAL: Well-developed in no acute distress. HEENT: No sclera icterus. Extraocular movements grossly intact. Moist buccal mucosa. Head is atraumatic, normocephalic. Hears conversational speech. No nasal drain age. NECK: Supple without lymphadenopathy. CHEST: Non-labored respirations and equal bilateral excursions. CARDIOVASCULAR: Palpable 2+ radial pulses. ABDOMEN: Soft. Nondistended. MUSCULOSKELETAL: No clubbing or cyanosis. NEUROLOGIC: No focal or lateralizing signs. Cranial nerves II through XII grossly intact. PSYCH: Appropriate affect. Alert and oriented to person, place and time. SKIN: Well perfused. Good skin turgor. LABORATORY DATA: WBC is 4.5 Hgb is 10.3 platelets 253 INR 1.0 Sodium is 139 potassium 4.0 creatinine 0.53 Magnesium 1.8 LFTs normal Troponin less than 0.012 Albumin 3.8 IMAGING: ASSESSMENT: 1. Acute GI bleed with Anemia and black stools 2. NSAID use 3. Acute mild diverticulitis 4. History of Reno-en-Y PLAN: -Patient scheduled for EGD tomorrow, 04/26/[address] Yates -Patient can have ice chips and popsicles today -Nothing by mouth after midnight -Start IV Protonix 40 mg twice a day -IV Zosyn added for possible diverticulitis -No NSAIDs -Continue IV fluids -Continue to monitor for any signs or symptoms of bleeding -Continue to monitor hemoglobin -Patient does have prior history of smoking. We'll check a urine nicotine level Physician Tribal Judge note has been reviewed by physician. Signing provider agrees with the documented findings, assessment, and plan of care. Past Medical History Past Medical History: GERD/Reflux, Sleep Apnea/CPAP/BIPAP Additional Past Medical History / Comment(s): BACK PAIN, PCOS, MENSTRUAL PERIODS LENGTHY/HEAVY/IRREG, LOW IRON. HIRSUTISM -(WAS ON SPIRONOLACTONE FOR THIS). STOMACH ULCERS. HAS BROKEN TOOTH. SLEEP APNEA (NO MACHINE). Anemia-hx iron infusions (heavy menstural periods, have resulted in hospitalizations for anemia) History of Any Multi-Drug Resistant Organisms: None Reported Past Surgical History: Bariatric Surgery, Cholecystectomy, Ear Surgery Additional Past Surgical History / Comment(s): TUBES IN EARS (CHILD), EGD, Reno-en-Y (gastric bypass) 05/27/18; EGD W/ DILATATION 08/15/18. Past Anesthesia/Blood Transfusion Reactions: Postoperative Nausea & Vomiting (PONV) Past Psychological History: Anxiety, Depression Smoking Status: Former smoker - Past Family History Mother Family Medical History: Cancer, Myocardial Infarction ([place]), Pulmonary Embolus Additional Family Medical History / Comment(s): at age 45 from PE (secondary to [place]) Father Family Medical History: Diabetes Mellitus Additional Family Medical History / Comment(s): at age 33 secondary to complications of DM; pt states her father had gangrene and osteomylitis. Gangrene led to sepsis and his . Medications and Allergies Home Medications Medication Instructions Recorded Confirmed Type Omeprazole [PriLOSEC] 40 mg PO DAILY PRN 02/08/18 04/25/22 History Allergies Allergy/AdvReac Type Severity Reaction Status Date / Time hydromorphone [From Dilaudid] AdvReac Nausea Verified 04/25/22 14:07 Surgical - Exam Vital Signs Temp Pulse Resp BP Pulse Ox 98.2 F 93 16 115/81 100 04/25/22 11:55 04/25/22 11:55 04/25/22 11:55 04/25/22 11:55 04/25/22 11:55 Results - Labs 04/25/22 12:24 04/25/22 12:24 Abnormal Lab Results - Last 24 Hours (Table) 04/25/22 04/25/22 Range/Units 12:24 12:24 RBC 3.15 L (3.80-5.40) m/uL Hgb 10.3 L (11.4-16.0) gm/dL Hct 30.4 L (34.0-46.0) % Chloride 110 H (98-107) mmol/L Total Protein 6.0 L (6.3-8.2) g/dL Diabetes panel 04/25/22 Range/Units 12:24 Sodium 139 (137-145) mmol/L Potassium 4.0 (3.5-5.1) mmol/L Chloride 110 H (98-107) mmol/L Carbon Dioxide 22 (22-30) mmol/L BUN 17 (7-17) mg/dL Creatinine 0.53 (0.52-1.04) mg/dL Glucose 86 (74-99) mg/dL Calcium 8.6 (8.4-10.2) mg/dL AST 23 (14-36) U/L ALT 20 (4-34) U/L Alkaline Phosphatase 50 (38-126) U/L Total Protein 6.0 L (6.3-8.2) g/dL Albumin 3.8 (3.5-5.0) g/dL Calcium panel 04/25/22 Range/Units 12:24 Calcium 8.6 (8.4-10.2) mg/dL Albumin 3.8 (3.5-5.0) g/dL Pituitary panel 04/25/22 Range/Units 12:24 Sodium 139 (137-145) mmol/L Potassium 4.0 (3.5-5.1) mmol/L Chloride 110 H (98-107) mmol/L Carbon Dioxide 22 (22-30) mmol/L BUN 17 (7-17) mg/dL Creatinine 0.53 (0.52-1.04) mg/dL Glucose 86 (74-99) mg/dL Calcium 8.6 (8.4-10.2) mg/dL Adrenal panel 04/25/22 Range/Units 12:24 Sodium 139 (137-145) mmol/L Potassium 4.0 (3.5-5.1) mmol/L Chloride 110 H (98-107) mmol/L Carbon Dioxide 22 (22-30) mmol/L BUN 17 (7-17) mg/dL Creatinine 0.53 (0.52-1.04) mg/dL Glucose 86 (74-99) mg/dL Calcium 8.6 (8.4-10.2) mg/dL Total Bilirubin 0.9 (0.2-1.3) mg/dL AST 23 (14-36) U/L ALT 20 (4-34) U/L Alkaline Phosphatase 50 (38-126) U/L Total Protein 6.0 L (6.3-8.2) g/dL Albumin 3.8 (3.5-5.0) g/dL
[2022-04-25] MEDS: PIPERACILLIN-TAZOBACTAM 3.375 GM in SODIUM CHLORIDE 0.9% 100 ML IVPB SCH (16:57)
[2022-04-25 20:11] LABS: Basophils % (A) 0 %; Eosinophils # (A) 0.1 k/uL (0-0.7); Eosinophils % (A) 2 %; HCT 26.3 % (34.0-46.0); Lymphocytes # (A) 1.8 k/uL (1.0-4.8); Lymphocytes % (A) 38 %; MCH 32.1 pg (25.0-35.0); MCV 97.2 fL (80.0-100.0); Mean Platelet Volume 9.6; Monocytes # (A) 0.2 k/uL (0-1.0); Monocytes % (A) 5 %; Neutrophils # (A) 2.4 k/uL (1.3-7.7); Neutrophils % (A) 51 %; Platelet Count 220 k/uL (150-450); RBC 2.71 m/uL (3.80-5.40); WBC 4.8 k/uL (3.8-10.6)
[2022-04-25 20:16] LABS: HGB 8.7 gm/dL (11.4-16.0)
[2022-04-26] MEDS: PIPERACILLIN-TAZOBACTAM 3.375 GM in SODIUM CHLORIDE 0.9% 100 ML IVPB SCH ×2 (01:06→08:20)
[2022-04-26 06:18] LABS: Basophils % (A) 0 %; Eosinophils # (A) 0.2 k/uL (0-0.7); Eosinophils % (A) 3 %; HCT 25.4 % (34.0-46.0); HGB 8.5 gm/dL (11.4-16.0); Lymphocytes # (A) 2.1 k/uL (1.0-4.8); Lymphocytes % (A) 39 %; MCH 32.4 pg (25.0-35.0); MCHC 33.6 g/dL (31.0-37.0); MCV 96.6 fL (80.0-100.0); Mean Platelet Volume 8.4; Monocytes # (A) 0.2 k/uL (0-1.0); Monocytes % (A) 4 %; Neutrophils # (A) 2.7 k/uL (1.3-7.7); Neutrophils % (A) 51 %; Platelet Count 208 k/uL (150-450); RBC 2.63 m/uL (3.80-5.40); RDW 13.1 % (11.5-15.5); WBC 5.4 k/uL (3.8-10.6)
[2022-04-26] MEDS: PANTOPRAZOLE 40 MG/10 ML VIAL IVP SCH (08:20)
[2022-04-26 09:17] VITALS: RESP 18
[2022-04-26] MEDS ORDERED: fentaNYL (PF) 50 MCG/ML 2 ML AMP ONE (10:30)
[2022-04-26] MEDS ORDERED: LIDOCAINE 2% INJ 20 MG/ML (2 ML VIAL) ONE (10:30)
[2022-04-26] MEDS ORDERED: MIDAZOLAM 2 MG/2 ML VIAL ONE (10:30)
[2022-04-26] MEDS ORDERED: PROPOFOL 10 MG/ML 20 ML VIAL IV ONE (10:30)
[2022-04-26] MEDS ORDERED: LACTATED RINGERS 1,000 ML IV ONE ×2 (10:34)
[2022-04-26] MEDS ORDERED: METOCLOPRAMIDE 5 MG/ML 2 ML VIAL IVP PRN (10:43)
[2022-04-26] MEDS ORDERED: ACETAMINOPHEN IV (For NPO) 1,000 MG in EMPTY BAG 1 BAG IVPB PRN (10:43)
[2022-04-26] MEDS ORDERED: ONDANSETRON 4 MG/2 ML VIAL IVP PRN (10:43)
[2022-04-26] MEDS ORDERED: NALOXONE 0.4 MG/ML 1 ML VIAL IV PRN (10:43)
[2022-04-26] MEDS ORDERED: HYDROmorphone 0.5 MG/0.5 ML SYRINGE IVP PRN (10:43)
--- NOTE | 2022-04-26 10:55 | P.PCN ---
Date of Procedure: 04/26/22 Description of Procedure: PREOPERATIVE DIAGNOSES: 1. Gastrointestinal bleeding 2. Epigastric abdominal 3. History of gastric bypass. POSTOPERATIVE DIAGNOSES: 1. Gastrointestinal bleeding 2. Epigastric abdominal 3. History of gastric bypass. PROCEDURE PERFORMED: Esophagogastrojejunoscopy with biopsy SURGEON: Jahaira Yates MD ANESTHESIA: MAC. INDICATIONS: The patient is a 32-year-old female with prior history of Reno-en-Y gastric bypass. She presents with epigastric abdominal pain including gastrointestinal bleeding. With his history of Reno-en-Y gastric bypass, upper endoscopy was offered for further evaluation and management. DESCRIPTION: Patient was brought to the endoscopy suite and laid in the left lateral decubitus position. After adequate IV sedation, a bite block was placed. An Olympus gastroscope was passed along the posterior oropharynx down to the distal esophagus where the squamocolumnar junction was found at approximately 38 cm from the incisors. The anastomosis was found at 45 cm, consistent with approximately 7 cm gastric pouch. The scope was advanced 60 cm from the incisors. No evidence of active gastrojejunal ulcerations were encountered. The pouch was in moderate in size with biopsies obtained. The GI tract was desufflated. The patient tolerated the procedure well. FINDINGS: 1. No acute gastrojejunal ulceration. 2. Gastric pouch 7 cm and dilated PLAN: 1. Recommend upper endoscopy as needed. 2. May benefit from lower endoscopy for gastrointestinal bleeding
--- NOTE | 2022-04-26 13:45 | P.DS ---
Providers Date of admission: 04/25/22 13:31 Expected date of discharge: 04/26/22 Attending physician: Jahaira Yates Primary care physician: Jose Kaba [facility] Course: Discharge diagnosis 1. Gastrointestinal bleeding 2. Epigastric abdominal 3. History of gastric bypass 4. NSAID use 5. Mild acute diverticulitis Hospital course The patient is a 32-year-old female with prior history of Reno-en-Y gastric bypass. She presents with epigastric abdominal pain including gastrointestinal bleeding. Patient status post EGD that showed no evidence of gastric jejunal ulceration. Gastric pouch 7 cm and dilated. Patient's abdominal pain has improved. She is tolerating diet. She has been up and ambulating. Hemoglobin has remained stable. She is afebrile. She'll continue oral antibiotics after discharge for her mild diverticulitis. She is stable for discharge. Physician Key Person note has been reviewed by physician. Signing provider agrees with the documented findings, assessment, and plan of care. Patient Condition at Discharge: Stable Plan - Discharge Summary Discharge Rx Participant: No New Discharge Prescriptions: New Amoxic-Pot Clav 875-125Mg [Augmentin 875-125] 1 tab PO Q12HR 10 Days #20 tab Omeprazole [PriLOSEC] 40 mg PO BID #28 cap Discontinued Omeprazole [PriLOSEC] 40 mg PO DAILY PRN PRN Reason: Heartburn Discharge Medication List Amoxic-Pot Clav 875-125Mg [Augmentin 875-125] 1 tab PO Q12HR 10 Days #20 tab 04/26/22 [Rx] Omeprazole [PriLOSEC] 40 mg PO BID #28 cap 04/26/22 [Rx] Follow up Appointment(s)/Referral(s): Jose Kaba DO [Primary Care Provider] - 1-2 days B[facility] [place], [place] [NON-STAFF] - 2 Weeks Discharge Disposition: HOME SELF-CARE
[2022-04-26 15:29] VITALS: BP 113/69; PULSE 89; TEMP 97.9
== END 2022-04-26 15:45 | disposition home or self-care (01) ==
LOC: EC 11:48 → 6NMEDSUR 13:31
PROVIDERS: ADMIT Surgery Plastic and Reconstructive Surgery; ATTEND Surgery Plastic and Reconstructive Surgery
DX: K57.93 Diverticulitis of intestine, part unspecified, without perforation or abscess with bleeding (principal); D62 Acute posthemorrhagic anemia; K29.50 Unspecified chronic gastritis without bleeding; D50.9 Iron deficiency anemia, unspecified; N92.0 Excessive and frequent menstruation with regular cycle; G47.30 Sleep apnea, unspecified; K21.9 Gastro-esophageal reflux disease without esophagitis; E28.2 Polycystic ovarian syndrome; F32.A Depression, unspecified; F41.9 Anxiety disorder, unspecified; Z79.899 Other long term (current) drug therapy; Z88.5 Allergy status to narcotic agent; Z87.11 Personal history of peptic ulcer disease; Z90.49 Acquired absence of other specified parts of digestive tract; Z98.84 Bariatric surgery status; Z98.890 Other specified postprocedural states; Z87.891 Personal history of nicotine dependence; Z82.49 Family history of ischemic heart disease and other diseases of the circulatory system; Z83.3 Family history of diabetes mellitus; Z82.69 Family history of other diseases of the musculoskeletal system and connective tissue; Z83.1 Family history of other infectious and parasitic diseases
CPT/HCPCS: 96376 ×2; 96361; 96374; 99285; 36415; 86900; 86901; 88305; 80053; 83735; 84484; 85025 ×2; 85610; 85730; 86850; 88342; 81025; 80307; 43239; G0378 ×2; J2543 ×2; J2250; J3010; J2704; C9113 ×2; J2001

== ENCOUNTER → 2023-06-27 | Outpatient (CLI) | payer OTHER ==
[2023-06-27 14:35] VITALS: BP 102/68; PULSE 59; TEMP 98.1; BMI 32.6
--- NOTE | 2023-06-27 15:13 | P.BASOAP ---
Subjective Progress Note Date: 06/27/23 DATE OF SERVICE: 06/27/23 CHIEF COMPLAINT: Status post gastric bypass HISTORY OF PRESENT ILLNESS: Araceli Fabian is a 33-year-old female status post gastric bypass 05/27/2018. She is over 5 years out. She has been lost to follow-up for 2 years. She has lost 150+ pounds. She is 210 to 215 pounds. She denies abdominal pain. She reports cramping abdominal pain of the lower abdomen. 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 She wants to lose more weight. She reports back pain and skin troubles from panniculitis. She is off multiple medications including antidepressants, hypertensive medications. She presents for assessment of panniculectomy. She reports troubles with swallowing as well. At her height of 5 feet 8-1/4 inches, she was 393 pounds. Her body mass index was 59.4. Potter body weight is 163 pounds. She comes in weighing 215 pounds from 251 pounds, 2 years ago. She has lost 36 pounds in 2 years. Her BMI 32.7. Lifetime weight loss 178 pounds. Lifetime percent excess weight loss is 77 %. PAST MEDICAL HISTORY: 1. Morbid obesity, highest BMI 59.3 2. Hypertension. 3. History of gastric ulcers. 4. Diabetes type 2, diet controlled. 5. Osteoarthritis of the lower back. 6. Obstructive sleep apnea 7. Gastroesophageal reflux disease PAST SURGICAL HISTORY: 1. Upper endoscopy. 2. Myringotomy, tubes in the ear. 3. Gastric bypass MEDICATIONS: Home Medications Medication Instructions Recorded Confirmed Omeprazole [PriLOSEC] 40 mg PO DAILY PRN 06/27/23 06/27/23 Previous Rx's Medication Instructions Recorded Nystatin 100,000 Unit/gm Powd 1 applic TOPICAL BID #60 gm 06/27/23 [Mycostatin Powder] ALLERGIES: Allergies Allergy/AdvReac Type Severity Reaction Status Date / Time hydromorphone [From Dilaudid] AdvReac Nausea Verified 04/25/22 14:07 SOCIAL HISTORY: History of tobacco use. History of recreational marijuana use. FAMILY HISTORY: Notable for obesity. She also has a family history of diabetes. She denies any familial history of ulcerative colitis or Crohn's disease. She denies any stomach cancers in her family. She does have history of her mother dying of pulmonary embolism. REVIEW OF SYSTEMS: CONSTITUTIONAL: At her height of 5 feet 8-1/4 inches, she was 393 pounds. Her body mass index was 59.4. Potter body weight is 164 pounds. RESPIRATORY: Has obstructive sleep apnea now resolved. No recent pneumonias GASTROINTESTINAL: History of gastroesophageal reflux disease now resolved and has dysphagia. HEENT: No troubles with vision or hearing. Denies dysphagia. ENDOCRINE: Has glucose intolerance now resolved. No thyroid disorder. CARDIOVASCULAR: History of hypertension now improved. No recent heart attack or palpitations. MUSCULOSKELETAL: Has lower back pain. Also reports bilateral hip pain improved. NEURO: No reports of a headache or seizure disorders. PSYCH: Has new depression and mood disorder. HEMATOLOGIC: No bruising or bleeding. SKIN: Has panniculitis. No cancer. GENITOURINARY: Reports heavy irregular bleeding. PHYSICAL EXAM: VITAL SIGNS: 5 foot 8-1/4, 215 pounds. Body mass index of 32.7 Vital Signs Temp 98.1 F 06/27/23 14:29 Pulse 59 L 06/27/23 14:29 Resp BP 102/68 06/27/23 14:29 Pulse Ox FiO2 GENERAL: Well-developed female in no acute distress. HEENT: No sclerae icterus. Extraocular movements grossly intact. Moist buccal pink mucosa. NECK: Supple without gross lymphadenopathy. CHEST: Nonlabored respirations, equal bilateral excursions. CARDIOVASCULAR: Regular rate and rhythm. 2+ radial pulses ABDOMEN: Soft. Nondistended. Grade 3 panniculosis with panniculitis. MUSCULOSKELETAL: No clubbing, or cyanosis. NEURO: No focal or lateralizing signs. Cranial nerves II through XII grossly within normal limits. PSYCH: Tearful. Alert and oriented to person, place and time. SKIN: Well perfused. Good skin turgor. ASSESSMENT: 1. Morbid obesity due to excess caloric intake. 2. Body mass index of 57.5 down to 32.7 3. Obstructive sleep apnea. 4. Osteoarthritis of lower back, due to morbid obesity. 5. Gastroesophageal reflux disease. 6. Vitamin D deficiency. 7. Hypercholesterolemia, now improved. 8. Hypertriglyceridemia, now improved. 9. Hypertensive heart disease 10. Glucose intolerance. 11. Fatty food intolerance, resolved 12. Dietary surveillance and counseling. 13. Vitamin A deficiency 14. Iron deficiency anemia, resolved 15. Metromenorrhagia 16. Status post gastric bypass 17. Panniculitis 18. Zinc deficiency 19. Dysphagia PLAN: 1. Recommend bariatric labs as she has been lost for follow-up 2. Nystatin powder prescribed for her symptoms. 3. Recommend esophagram for dysphagia 4. Recommend follow-up with architect internship Objective - Vital Signs Vital signs: Vital Signs Temp 98.1 F 06/27/23 14:29 Pulse 59 L 06/27/23 14:29 Resp BP 102/68 06/27/23 14:29 Pulse Ox FiO2 Intake & Output 06/26/23 06/27/23 06/27/23 18:59 06:59 18:59 Weight 97.522 kg Assessment/Plan Plan: Date: 06/27/23 Initial Weight: 166.604 kg Initial BMI: 55.8 Current Weight: 97.522 kg Current BMI: 32.6 Type of Surgery: Total Volume in Band: Previous Volume: Volume Removed: Volume Added: Band Size:
== END ==
LOC: BARWHC3 14:15
PROVIDERS: ATTEND Surgery Plastic and Reconstructive Surgery
DX: E66.01 Morbid (severe) obesity due to excess calories (principal); G47.33 Obstructive sleep apnea (adult) (pediatric); M47.816 Spondylosis without myelopathy or radiculopathy, lumbar region; K21.9 Gastro-esophageal reflux disease without esophagitis; E55.9 Vitamin D deficiency, unspecified; E78.00 Pure hypercholesterolemia, unspecified; E78.1 Pure hyperglyceridemia; I11.0 Hypertensive heart disease with heart failure; R73.02 Impaired glucose tolerance (oral); K90.49 Malabsorption due to intolerance, not elsewhere classified; E50.9 Vitamin A deficiency, unspecified; N92.1 Excessive and frequent menstruation with irregular cycle; T85.9XXA Unspecified complication of internal prosthetic device, implant and graft, initial encounter; M79.3 Panniculitis, unspecified; Z71.3 Dietary counseling and surveillance; Z68.43 Body mass index [BMI] 50.0-59.9, adult; Z88.5 Allergy status to narcotic agent; Z87.891 Personal history of nicotine dependence
CPT/HCPCS: 99211

== ENCOUNTER → 2023-08-03 | Outpatient (CLI) | payer OTHER ==
[2023-08-03 12:15] LABS: INR 0.9 (<1.2); Partial Thromboplastin Time 24.9 sec (22.0-30.0); Prothrombin Time 10.4 sec (10.0-12.5)
--- NOTE | 2023-08-03 13:33 | FL ---
EXAMINATION TYPE: FL barium swallow DATE OF EXAM: 08/03/2023 CLINICAL INDICATION: 32-year-old female R1 3.10, dysphagia, nausea and vomiting. Patient status post Ren[place]-en-Y gastric bypass. COMPARISON: None Total Fluoroscopy Time: 2 minutes 21 seconds Total images: 53. DAP- 537.42 mGycm2 FINDINGS: The cervical and thoracic portions have a normal course and caliber and normal motility. Allowing for single contrast technique, the mucosa is normal and no persistent filling defect is enco untered. There is satisfactory passage of contrast from the esophagus into the stomach with postsurgical crane e of [place]-en-Y gastric bypass demonstrated. There is relative narrowing at the gastrojejunostomy. The appearance of an anterior to side anastomosis with a second area of relative narrowing just distal t o the anastomosis causing delay in passage of contrast to the remainder of the small bowel IMPRESSION: 1. Status post Reno-en-Y gastric bypass. 2. There appears to be a relative narrowing/stricture at the end to side gastrojejunostomy and also w ithin the proximal jejunum just beyond the anastomosis.
[2023-08-03 15:29] LABS: HCT 34.6 % (37.2-46.3); HGB 10.4 g/dL (12.0-15.0); MCH 25.2 pg (27.0-32.0); MCHC 30.1 g/dL (32.0-37.0); Mean Platelet Volume 9.3 FL (9.5-12.2); NRBC Per 100 WBC 0 X 10*3/uL (0.00-0.01); Platelet Count 351 X 10*3/uL (140-440); RBC 4.12 X 10*6/uL (4.10-5.20); WBC 4.29 X 10*3/uL (4.50-10.00)
[2023-08-03 16:27] LABS: % Iron Saturation 3.76 (12.00-45.00); ALT 15 U/L (8-44); AST 25 U/L (13-35); Albumin 4.4 g/dL (3.8-4.9); Albumin/Globulin Ratio 1.69 Ratio (1.60-3.17); Alkaline Phosphatase 71 U/L (41-126); BUN/Creat Ratio 23.71 Ratio (12.00-20.00); Blood Urea Nitrogen 16.6 mg/dL (9.0-27.0); Calcium 9.8 mg/dL (8.7-10.3); Carbon Dioxide 24.1 mmol/L (21.6-31.8); Chloride 104 mmol/L (96-109); Ferritin 9.6 ng/mL (10.0-291.0); Globulin 2.6 g/dL (1.6-3.3); Glucose 86 mg/dL (70-110); Iron 16 UG/DL (50-170); LDL Cholesterol,Calculated 107.9 mg/dL (0.0-131.0); Phosphorus 3.6 mg/dL (2.4-5.1); Potassium 4.3 mmol/L (3.5-5.5); Sodium 142 mmol/L (135-145); Total Bilirubin 0.5 mg/dL (0.3-1.2); Total Iron Binding Capacity 426 UG/DL (228-460); VLDL Calculation 11.92 mg/dL (5.00-40.00)
[2023-08-03 17:06] LABS: Prealbumin 15.5 mg/dL (18.0-42.0)
== END | disposition home or self-care (01) ==
LOC: RADUSWWP 10:01
PROVIDERS: ATTEND Surgery Plastic and Reconstructive Surgery
DX: R13.10 Dysphagia, unspecified (principal); Z98.84 Bariatric surgery status; Z93.4 Other artificial openings of gastrointestinal tract status
CPT/HCPCS: 74220; 80053; 80061; 82306; 82525; 82607; 82728; 82746; 83036; 83540; 83550; 83735; 83970; 84100; 84134; 84255; 84425; 84443; 84590; 84630; 85027; 85610; 85730

== ENCOUNTER 2023-11-15 02:15 | Emergency (ER) | payer OTHER ==
--- NOTE | 2023-11-15 02:58 | ED ---
Skin/Abscess/FB HPI - General Chief complaint: Skin/Abscess/Foreign Body Stated complaint: Ingrown hair Time Seen by Provider: 11/15/23 02:24 Source: patient Mode of arrival: ambulatory Limitations: no limitations - History of Present Illness Initial comments: 33-year-old female presenting with chief complaint of ingrown hair to the knees. Patient has history of hirsutism, she states that she shaves her face about 2 to 3 days ago. She has had a painful bump to the submandibular area that she believes is due to an ingrown hair. She has tried removing it with tweezers but has been unsuccessful. It is becoming increasingly more swollen and painful. No discharge. States that it feels firm. No fevers. No trismus. - Related Data Home Medications Medication Instructions Recorded Confirmed Omeprazole [PriLOSEC] 40 mg PO DAILY PRN 06/27/23 08/07/23 Ergocalciferol [Vitamin D2 (1250 50,000 unit PO WEEKLY 08/07/23 08/07/23 Mcg = 54952 Iu)] Previous Rx's Medication Instructions Recorded Nystatin 100,000 Unit/gm Powd 1 applic TOPICAL BID #60 gm 06/27/23 [Mycostatin Powder] Cephalexin [Keflex] 500 mg PO Q6HR 7 Days #28 cap 11/15/23 Sulfamethox-Tmp 800-160Mg [Bactrim 1 tab PO Q12HR 7 Days #14 tab 11/15/23 DS 800-160 mg] Allergies Allergy/AdvReac Type Severity Reaction Status Date / Time hydromorphone [From Dilaudid] AdvReac Nausea Verified 11/15/23 02:23 Review of Systems ROS Statement: Those systems with pertinent positive or pertinent negative responses have been documented in the HPI. ROS Other: All systems not noted in ROS Statement are negative. Past Medical History Past Medical History: GERD/Reflux, Sleep Apnea/CPAP/BIPAP Additional Past Medical History / Comment(s): BACK PAIN, PCOS, MENSTRUAL PERIODS LENGTHY/HEAVY/IRREG, LOW IRON. HIRSUTISM -(WAS ON SPIRONOLACTONE FOR THIS). STOMACH ULCERS. HAS BROKEN TOOTH. SLEEP APNEA (NO MACHINE). Anemia-hx iron infusions (heavy menstural periods, have resulted in hospitalizations for anemia) History of Any Multi-Drug Resistant Organisms: None Reported Past Surgical History: Bariatric Surgery, Cholecystectomy, Ear Surgery Additional Past Surgical History / Comment(s): TUBES IN EARS (CHILD), EGD, Reno-en-Y (gastric bypass) 05/27/18; EGD W/ DILATATION 08/15/18. Past Anesthesia/Blood Transfusion Reactions: Postoperative Nausea & Vomiting (PONV) Past Psychological History: Anxiety, Depression Smoking Status: Former smoker Past Alcohol Use History: None Reported Past Drug Use History: Marijuana - Past Family History Mother Family Medical History: Cancer, Myocardial Infarction ([place]), Pulmonary Embolus Additional Family Medical History / Comment(s): at age 45 from PE (secondary to [place]) Father Family Medical History: Diabetes Mellitus Additional Family Medical History / Comment(s): at age 33 secondary to complications of DM; pt states her father had gangrene and osteomylitis. Gangrene led to sepsis and his . General Exam Limitations: no limitations General appearance: alert, in no apparent distress Head exam: Present: atraumatic, normocephalic Eye exam: Present: normal appearance, EOMI Neck exam: Present: normal inspection, lymphadenopathy. Absent: meningismus Respiratory exam: Absent: respiratory distress Cardiovascular Exam: Present: regular rate Neurological exam: Present: alert, oriented X3 Psychiatric exam: Present: normal affect, normal mood Expanded Type of lesion: Present: abscess (small indurated abscess to the submandibular area ) Course Vital Signs 11/15/23 02:21 Temperature 98 F Pulse Rate 80 Respiratory 18 Rate Blood Pressure 124/82 O2 Sat by Pulse 99 Oximetry Medical Decision Making - Medical Decision Making Was pt. sent in by a medical professional or institution (YONI Tan, [employer] AIR OPERATOR, urgent care, hospital, or residential...) When possible be specific @ -No Did you speak to anyone other than the patient for history (EMS, parent, family, police, friend...)? What history was obtained from this source @ -No Did you review nursing and triage notes (agree or disagree)? Why? @ -I reviewed and agree with nursing and triage notes Were old charts reviewed (outside hosp., previous admission, EMS record, old EKG, old radiological studies, urgent care reports/EKG's, residential records)? Report findings @ -No old charts were reviewed Differential Diagnosis (chest pain, altered mental status, abdominal pain women, abdominal pain men, vaginal bleeding, weakness, fever, dyspnea, syncope, headache, dizziness, GI bleed, back pain, seizure, CVA, palpatations, mental health, musculoskeletal)? @ -Differential would cellulitis, abscess, allergic reaction, this is not all- inclusive list EKG interpreted by me (3pts min.). @ -As above X-rays interpreted by me (1pt min.). @ -None done CT interpreted by me (1pt min.). @ -None done U/S interpreted by me (1pt. min.). @ -None done What testing was considered but not performed or refused? (CT, X-rays, U/S, labs)? Why? @ -None What meds were considered but not given or refused? Why? @ -None Did you discuss the management of the patient with other professionals (professionals i.e. , PA, [employer] AIR OPERATOR, lab, RT, psych nurse, social work assistant, algology teacher, teacher, grant officer, caseworker intake)? Give summary @ -No Was smoking cessation discussed for >3mins.? @ -No Was critical care preformed (if so, how long)? @ -No Were there social determinants of health that impacted care today? How? (Homel essness, low income, unemployed, alcoholism, drug addiction, transportation, low edu. Level, literacy, decrease access to med. care, assisted, rehab)? @ -No Was there de-escalation of care discussed even if they declined (Discuss DNR or withdrawal of care, Hospice)? DNR status @ -No What co-morbidities impacted this encounter? (DM, HTN, Smoking, COPD, CAD, Cancer, CVA, ARF, Chemo, Hep., AIDS, mental health diagnosis, sleep apnea, morbid obesity)? @ -None Was patient admitted / discharged? Hospital course, mention meds given and route, prescriptions, significant lab abnormalities, going to OR and other pertinent info. @ -33-year-old female presenting with chief complaint of painful bump to the underside of the chin. History with ingrown hair, patient recently shaved. There is a small indurated abscess to the submandibular area. Patient also has some lymphadenopathy. 18-gauge needle was used to create a small puncture to the abscess. Started on Keflex and Bactrim. Educated on wound care. Discharged home. Follow-up with PCP. Report back to ER with any new or worsening symptoms. Discussed return parameters and answered all questions. Patient conveyed verbal understanding and agreed to the plan. I discussed this case in detail with my attending Dr. Magaña Undiagnosed new problem with uncertain prognosis? @ -No Drug Therapy requiring intensive monitoring for toxicity (Heparin, Nitro, Insulin, Cardizem)? @ -No Were any procedures done? @ -No Diagnosis/symptom? @ -Abscess Acute, or Chronic, or Acute on Chronic? @ -Acute Uncomplicated (without systemic symptoms) or Complicated (systemic symptoms)? @ -Uncomplicated Side effects of treatment? @ -No Exacerbation, Progression, or Severe Exacerbation? @ -No Poses a threat to life or bodily function? How? (Chest pain, [place], [place], pneumonia, PE, COPD, DKA, ARF, appy, cholecystitis, CVA, Diverticulitis, Homicidal, Suicidal, threat to staff... and all critical care pts) @ -Low likelihood Disposition Clinical Impression: Abscess, Ingrown hair Disposition: HOME SELF-CARE Condition: Good Instructions (If sedation given, give patient instructions): Abscess (ED) Additional Instructions: Follow-up with your PCP. Return to ER with any new or worsening symptoms. Apply warm compresses for 15 mins daily 4-5 times per day. take medication as prescribed. Prescriptions: Sulfamethox-Tmp 800-160Mg [Bactrim DS 800-160 mg] 1 tab PO Q12HR 7 Days #14 tab Cephalexin [Keflex] 500 mg PO Q6HR 7 Days #28 cap Is patient prescribed a controlled substance at d/c from ED?: No Referrals: None,Stated [Primary Care Provider] - 1-2 days Neha Chan MD [STAFF PHYSICIAN] - 1-2 days Time of Disposition: 02:58
[2023-11-15 03:41] VITALS: BP 124/82; PULSE 80; RESP 18; TEMP 98
== END 2023-11-15 03:08 | disposition home or self-care (01) ==
LOC: EC 02:15
DX: L02.416 Cutaneous abscess of left lower limb (principal); L02.415 Cutaneous abscess of right lower limb; Z87.891 Personal history of nicotine dependence; Z88.5 Allergy status to narcotic agent; Z90.49 Acquired absence of other specified parts of digestive tract
CPT/HCPCS: 99282

== ENCOUNTER → 2024-01-22 | Outpatient (CLI) | payer OTHER ==
[2024-01-22 08:45] VITALS: BP 111/71; PULSE 66; RESP 16; TEMP 98.2
[2024-01-22] MEDS: SODIUM CHLORIDE 0.9% 500 ML 500 ML in EMPTY BAG 1 BAG IV PRN (08:48)
[2024-01-22] MEDS: IRON SUCROSE 300 MG in SODIUM CHLORIDE 0.9% 250 ML IVPB NR (08:48)
== END ==
LOC: PROCWHC3 08:22
PROVIDERS: ATTEND Surgery Plastic and Reconstructive Surgery
DX: D50.9 Iron deficiency anemia, unspecified (principal)
CPT/HCPCS: 96365; 96366; J1756

== ENCOUNTER 2024-02-20 12:16 | Emergency (ER) | payer OTHER ==
[2024-02-20] MEDS ORDERED: MORPHINE SULFATE 4 MG/ML SYRINGE ONE (12:58)
[2024-02-20] MEDS ORDERED: ONDANSETRON 4 MG/2 ML VIAL ONE (12:58)
[2024-02-20] MEDS ORDERED: FAMOTIDINE 20 MG/2 ML VIAL ONE (12:59)
[2024-02-20] MEDS ORDERED: PANTOPRAZOLE 40 MG/10 ML VIAL ONE (12:59)
[2024-02-20] MEDS ORDERED: SODIUM CHLORIDE 0.9% 1,000 ML BAG ONE (13:00)
--- NOTE | 2024-03-21 13:39 | CT ---
EXAM: CT abdomen pelvis with contrast DATE OF EXAM: 02/20/24 INDICATION: Patient age:CATIE AMADO : 1990 Reason for study: Pain COMPARISON: None, please note PACS downtime occurred during the radiologist interpretation of these i mages with limited priors/reports.. TECHNIQUE: CT abdomen and pelvis with contrast, with axial imaging and sagittal and coronal reformats following the administration of 100 cc of Isovue-300 IV contrast material. Oral contrast was utilized. One or m ore CT dose reduction strategies were utilized during this examination. Total DLP administered was 18 22 mGycm. FINDINGS: LOWER CHEST: Unremarkable ABDOMEN LIVER: Unremarkable GALLBLADDER AND BILE DUCTS: Postcholecystectomy changes with dilation of extra hepatic biliary and ce ntral intrahepatic system which can be normal post cholecystectomy physiology.. PANCREAS: Unremarkable. SPLEEN: Unremarkable. ADRENAL GLANDS: Unremarkable. KIDNEYS AND URETERS: No evidence of hydronephrosis or renal calculus. The ureters are unremarkable. PELVIS BLADDER: Unremarkable REPRODUCTIVE: Unremarkable. ABDOMEN & PELVIS STOMACH AND BOWEL: Postsurgical changes to the upper abdomen. Oral contrast extends through the gastr ic lumen into the jejunum. Anastomotic suture in the left upper quadrant is present with gaseous dila tion of bowel in this region.. No evidence of bowel obstruction. PERITONEUM: No evidence of pneumoperitoneum or free fluid. VASCULATURE: No evidence of aortic aneurysm. MUSCULOSKELETAL: No acute osseous abnormalities LYMPH NODES: No gross evidence for lymphadenopathy. SOFT TISSUE/ABDOMINAL WALL: Unremarkable IMPRESSION: 1. Postsurgical changes to the bowel including the stomach with anastomosis to the small bowel. No e vidence for bowel obstruction. There is dilation left upper quadrant anastomotic site. 2. No acute abdominal process visualized.
== END 2024-02-20 19:00 | disposition home or self-care (01) ==
LOC: EC 12:16
DX: R10.9 Unspecified abdominal pain (principal); Z88.0 Allergy status to penicillin; Z91.09 Other allergy status, other than to drugs and biological substances; Z88.5 Allergy status to narcotic agent
CPT/HCPCS: 99284; 96374; 96375 ×3; 96361; 80053; 83735; 84100; 85025; 81003; 81025; 74177; J2270; J2405; J3490; Q9967; J2470